=== PATIENT | male | born 1945 | race Caucasian/White ===

== ENCOUNTER 2020-03-19 19:42 | Inpatient (IN) | payer MEDICARE, MEDICAID ==
[~2020-03-19] VITALS: Ht 167.6 cm; Wt 50.3 kg
--- NOTE | 2020-03-19 19:45 | Emergency Room Report ---
History of Present Illness General Source: Patient Present Illness HPI Patient is a 74-year-old male sent in from [facility] after increased fever as well as nonproductive cough. Prior history of COPD. Patient had been noted to have increased respiratory rate.Patient was noted to have some prior history of psychosis. History is limited by poor historian. Allergies: Coded Allergies: No Known Allergies (Unverified , 03/19/20) Patient History Past Medical History: see triage record Reviewed Nursing Documentation: PMH: Agreed; PSxH: Agreed Review of Systems All Other Systems: limited - By poor historian Physical Exam Sp02 EP Interpretation: reviewed, normal General Appearance: normal inspection, alert, Chronically Ill Head: atraumatic ENT: normal ENT inspection, hearing grossly normal, normal voice Neck: normal inspection, full range of motion, supple, no bony tend Respiratory: normal inspection, lungs clear, normal breath sounds, no respiratory distress, no retraction, no wheezing Cardiovascular #1: regular rate, rhythm, no edema Gastrointestinal: normal inspection, normal bowel sounds, non tender, soft, no guarding, no hernia Genitourinary: no CVA tenderness Musculoskeletal: normal inspection, back normal, normal range of motion Neurologic: alert, responsive, speech normal, normal inspection Psychiatric: normal inspection, mood/affect normal Medical Decision Making Diagnostic Impression: Primary Impression: Suspected 2019 novel coronavirus infection Additional Impression: COPD (chronic obstructive pulmonary disease) ER Course Patient presented for increased fever as well as increased difficulty with breathing. Differential diagnosis include was not limited to COPD exacerbation , coronavirus infection, pneumonia, bronchitis among others. Because of complexity of patient's case laboratory tests and imaging studies were ordered. EKG interpreted by me showed normal sinus rhythm with a rate of [address] or T wave changes. Patient was noted to have what appears to be some patchy infiltrates on chest x-ray consistent with possible coronavirus infection. Given patient's facility having some prior cases patient is suspicious for coronavirus infection.Patient was noted to have some agitation was given medications that had previously been prescribed. He was started on IV fluids as well as IV antibiotics.Patient started on supplemental oxygen.Dr. Ramone Larsen was contacted for inpatient management. EKG Diagnostic Results Rate: normal Rhythm: NSR ST Segments: no acute changes Status: unchanged Disposition: ADMITTED INPATIENT Condition: Stable Elmo Grimaldo MD March 19, 2020 19:45
[2020-03-19 19:50] VITALS: BP 95/66
--- NOTE | 2020-03-19 19:50 | NUR ---
ED Nurse Note: Pt brought in by [facility] from [facility] with complaints of fever and cough. per ems, pt o2 was at87% RA. Pt O2 went back to 98 on 2L NC. Pt presents with fever of 104.1 at bedside rectal temp. pt is aaox2, nonambulatory, otherwise vss, nad. Pt placed with mask and on droplet isolation precaution. ERMD at bedside.
[2020-03-19] MEDS ORDERED: HALOPERIDOL1 MG ORAL (20:00)
[2020-03-19] MEDS ORDERED: METFORMIN HCL500 M1 ORAL (20:00)
[2020-03-19] MEDS ORDERED: MELATONIN3 MG ORAL (20:00)
[2020-03-19] MEDS ORDERED: Cefepime HCl 2 GM in NS 110 ML IV ONE (20:00)
[2020-03-19] MEDS ORDERED: ABILIFY2 MG IM (20:00)
[2020-03-19] MEDS ORDERED: QUETIAPINE FUM400 MG ORAL (20:00)
[2020-03-19] MEDS ORDERED: BENZTROPINE MESY1 MG ORAL (20:00)
[2020-03-19] MEDS ORDERED: SENNA8.6 M2 PO (20:00)
[2020-03-19] MEDS ORDERED: GABAPENTIN300 MG ORAL (20:00)
[2020-03-19] MEDS ORDERED: DOCUSATE SODIU100 MG ORAL (20:00)
--- NOTE | 2020-03-19 20:05 | NUR ---
ED Nurse Note: blood and urine collected and sent to lab.
--- NOTE | 2020-03-19 20:10 | NUR ---
ED Nurse Note: pt swabbed for covid
--- NOTE | 2020-03-19 20:10 | NUR ---
ED Nurse Note: xr at bedside.
--- NOTE | 2020-03-19 21:10 | Diagnostic Imaging Report ---
EXAM: XR Chest, 1 View CLINICAL HISTORY: COUGH TECHNIQUE: Frontal view of the chest. COMPARISON: No relevant prior studies available. FINDINGS: Lungs: Patchy right lung opacities suggest multifocal pneumonia. Possible right hilar enlargement versus artifactual prominence due to patient positioning, recommend attention on followup. Pleural space: Unremarkable. No pneumothorax. Heart: Unremarkable. No cardiomegaly. Mediastinum: Unremarkable. Bones/joints: Unremarkable. Other findings: If there is continued concern, consider CT. Recommend followup with radiographs or unenhanced CT in 8-10 weeks to document resolution. IMPRESSION: 1. Patchy right lung opacities suggest multifocal pneumonia. 2. Possible right hilar enlargement versus artifactual prominence due to patient positioning, recommend attention on followup. 3. If there is continued concern, consider CT.
--- NOTE | 2020-03-19 21:29 | NUR ---
ED Nurse Note: gave report to Ara JAMES
[2020-03-19 21:36] VITALS: BP 129/62
[2020-03-19] MEDS ORDERED: QUEtiapine 200mg tab ORAL ONE (21:45)
[2020-03-19 21:49] LABS: CKMB < 0.5 NG/ML (0.0-3.6); CREATINE KINASE 126 U/L (26-308); FERRITIN 484 NG/ML (8-388); PHOSPHORUS 2.8 MG/DL (2.5-4.9)
[2020-03-19 21:50] LABS: BASOPHILS % (AUTO) 1.8 % (0.0-2.0); EOSINOPHILS % (AUTO) 0.4 % (0.0-3.0); HEMATOCRIT 40.8 % (42.0-52.0); LYMPHOCYTES % (AUTO) 16.3 % (20.0-45.0); MEAN CORPUSCULAR VOLUME 89 FL (80-99); MONOCYTES % (AUTO) 12.9 % (1.0-10.0); NEUTROPHILS % (AUTO) 68.6 % (45.0-75.0); PLATELET COUNT 125 K/UL (150-450); RED BLOOD COUNT 4.56 M/UL (4.70-6.10); RED CELL DISTRIBUTION WIDTH 12.6 % (11.6-14.8)
[2020-03-19 21:56] LABS: ANION GAP 9 mmol/L (5-15); BLOOD UREA NITROGEN 16 mg/dL (7-18); CALCIUM 7.4 MG/DL (8.5-10.1); CARBON DIOXIDE 29 MMOL/L (21-32); CHLORIDE 106 MMOL/L (98-107); CREATININE 0.9 MG/DL (0.55-1.30); POTASSIUM 3.9 MMOL/L (3.5-5.1); SODIUM 144 MMOL/L (136-145)
[2020-03-19 22:00] LABS: ALANINE AMINOTRANSFERASE 21 U/L (12-78); ALBUMIN 2.8 G/DL (3.4-5.0); ALBUMIN/GLOBULIN RATIO 0.8 (1.0-2.7); ALKALINE PHOSPHATASE 64 U/L (46-116); ASPARTATE AMINO TRANSFERASE 26 U/L (15-37); BILIRUBIN,TOTAL 0.4 MG/DL (0.2-1.0)
--- NOTE | 2020-03-19 22:15 | NUR ---
TRANSFER TO FLOOR: Patient transferred to [facility] via [facility] in stable condition via transport 19 as ordered, per Dr. Larsen. Report given to Aylin JAMES. Belongings sent with patient.
--- NOTE | 2020-03-19 22:20 | NUR ---
NURSE NOTES: RECEIVED PATIENT FROM ODILON BLACK RN. PATIENT TRANSFERRED TO BED WITHOUT INCIDENT NOTED. ALERT, OX1-2, VERBALLY RESPONSIVE AND ABLE TO MAKE NEEDS KNOWN; PATIENT NOTED TO BE RAMBLING AND REPEATING WORDS. PATIENT ABLE TO UTILIZE SIDERAILS TO REPOSITION SELF IN BED. PATIENT CHANGED INTO YELLOW GOWN, PLACED ON AUDIT TECH. IV SITE ON LAC SALINE-LOCKED, ASYMPTOMATIC, PATENT AND INTACT. NOTED TO HAVE NO DENTURES/HEARING AIDS/ASSISTIVE DEVICES/CELL PHONE IN POSSESSION. NO COMPLAINTS OF PAIN OR DISCOMFORT AT THIS TIME. BREATHING IS EVEN AND UNLABORED ON 2L VIA NC, NO S/SX OF DISTRESS NOTED AT THIS TIME. BELONGINGS LIST WENT OVER WITH PATIENT AND TRANSFERRING RN. BED LOCKED AND IN LOWEST POSITION, BED ALARM ON WITH PADDED SIDERAILS UP X 2. CALL LIGHT WITHIN REACH. WILL CONTINUE TO MONITOR.
--- NOTE | 2020-03-19 22:34 | NUR ---
NURSE NOTES: CALLED DR. SANCHEZ'S ANSWERING SERVICE AT TO OBTAIN ADMISSION ORDERS, S/W FRANCESCA. AWAITING DR. SANCHEZ TO CALL BACK.
--- NOTE | 2020-03-19 22:56 | NUR ---
NURSE NOTES: PER DR. SANCHEZ, CONTACT DR. PRATT FOR ADMISSION ORDERS. LEFT MESSAGE FOR DR. PRATT AT . AWAITING CALL BACK.
[2020-03-20] VITALS: BP 129/62
--- NOTE | 2020-03-20 00:30 | NUR ---
NURSE NOTES: S/W JB AT [facility]. PER JB, PATIENT HAS NO HX OF INFLUENZA AND PNA VACCINES PATIENT ALWAYS REFUSES.
--- NOTE | 2020-03-20 00:45 | NUR ---
NURSE NOTES: DR. PRATT CALLED BACK WITH ADMISSION ORDERS. NOTED AND CARRIED OUT.
--- NOTE | 2020-03-20 01:06 | NUR ---
NURSE NOTES: PATIENT HAS A PUBLIC GUARDIAN: NACHO DILLON @ [phone]
[2020-03-20 04:00] VITALS: BP 129/62
[2020-03-20] MEDS: NovoLOG Insulin Flexpen SUBQ SCH ×4 (06:30→21:00)
--- NOTE | 2020-03-20 06:42 | NUR ---
NURSE NOTES: BS AT [id number]. PATIENT GIVEN TWO ORANGE JUICES. DR. SANCHEZ NOTIFIED. WILL CHECK BS IN 30 MINUTES.
[2020-03-20] MEDS: metFORMIN 500mg tab ORAL SCH ×2 (06:46→12:12)
--- NOTE | 2020-03-20 07:10 | NUR ---
NURSE NOTES:Handoff received from JACOB Viera. Patient received sleeping in bed, no acute signs of distress noted. Bed in the low and locked position with call light within reach, IV site clean dry and intact, saline locked. Patient is on isolation for rule out covid, patient on 2 liters nasal cannula, will continue to monitor patient.
--- NOTE | 2020-03-20 07:40 | NUR ---
HAND-OFF: Report given to JACOB WOODARD. PLAN OF CARE ENDORSED.
[2020-03-20 08:00] VITALS: BP 98/62
--- NOTE | 2020-03-20 08:24 | Consultation ---
Consult Note Consult Note PULMONARY CONSULT DICTATED Cedric Benítez MD March 20, 2020 08:24
[2020-03-20] MEDS: Benztropine 1mg tab ORAL SCH ×2 (08:44→17:27)
[2020-03-20] MEDS: Docusate 100mg cap ORAL SCH (08:44)
[2020-03-20 12:00] VITALS: BP 90/47
--- NOTE | 2020-03-20 12:14 | NUR ---
NURSE NOTES:Crushed meds and placed in apple sauce, patient refused to take medications, became agitated and stated " I took medications this morning, I don't want no more applesauce. failed to convince patient to take medications Gabapentin and Metformin.
--- NOTE | 2020-03-20 13:05 | NUR ---
NURSE NOTES: Called and left a message for Dr Larsen to update him on patient change in condition, patient blood pressure is 90/47
--- NOTE | 2020-03-20 13:08 | NUR ---
NURSE NOTES: patient comfortable and resting in bed, elevated patients legs to help raise BP.
--- NOTE | 2020-03-20 13:59 | Cardiology Progress Note ---
Assessment/Plan Assessment/Plan Cardiology consultation is made at request of Dr. Larsen for management of hypotension. Full report is dictated. Objective Last 24 Hour Vital Signs Date Time Temp Pulse Resp B/P (MAP) Pulse Ox O2 Delivery O2 Flow Rate FiO2 03/20/20 12:00 83 03/20/20 12:00 97.8 80 19 90/47 (61) 92 03/20/20 08:54 Nasal Cannula 2.0 03/20/20 08:00 85 03/20/20 08:00 97.8 94 20 98/62 (74) 91 03/20/20 04:00 97.2 77 18 129/62 (84) 97 03/20/20 04:00 78 03/20/20 00:00 99.8 82 21 129/62 (84) 98 03/20/20 00:00 91 03/19/20 22:35 Nasal Cannula 2.0 03/19/20 22:30 89 03/19/20 22:15 102.8 88 30 129/62 98 Nasal Cannula 2.0 98 03/19/20 21:40 102.8 03/19/20 21:36 102.8 82 30 129/62 98 Nasal Cannula 2.0 03/19/20 21:36 82 30 Nasal Cannula 2.0 98 03/19/20 19:50 104.1 88 30 95/66 98 Nasal Cannula 2.0 03/19/20 19:46 101.1 85 31 92/60 (71) 98 Intake and Output 03/19/20 03/20/20 19:00 07:00 Intake Total 1000 ml Balance 1000 ml IV Total 1000 ml # Voids 2 Laboratory Tests Test 03/19/20 21:00 White Blood Count 5.0 K/UL (4.8-10.8) Red Blood Count 4.56 M/UL (4.70-6.10) L Hemoglobin 13.0 G/DL (14.2-18.0) L Hematocrit 40.8 % (42.0-52.0) L Mean Corpuscular Volume 89 FL (80-99) Mean Corpuscular Hemoglobin 28.5 PG (27.0-31.0) Mean Corpuscular Hemoglobin Concent 31.9 G/DL (32.0-36.0) L Red Cell Distribution Width 12.6 % (11.6-14.8) Platelet Count 125 K/UL (150-450) L Mean Platelet Volume 9.8 FL (6.5-10.1) Neutrophils (%) (Auto) 68.6 % (45.0-75.0) Lymphocytes (%) (Auto) 16.3 % (20.0-45.0) L Monocytes (%) (Auto) 12.9 % (1.0-10.0) H Eosinophils (%) (Auto) 0.4 % (0.0-3.0) Basophils (%) (Auto) 1.8 % (0.0-2.0) D-Dimer 1.00 mg/L FEU (0.00-0.49) H Sodium Level 144 MMOL/L (136-145) Potassium Level 3.9 MMOL/L (3.5-5.1) Chloride Level 106 MMOL/L (98-107) Carbon Dioxide Level 29 MMOL/L (21-32) Anion Gap 9 mmol/L (5-15) Blood Urea Nitrogen 16 mg/dL (7-18) Creatinine 0.9 MG/DL (0.55-1.30) Estimat Glomerular Filtration Rate > 60 mL/min (>60) Glucose Level 98 MG/DL (74-106) Lactic Acid Level 0.80 mmol/L (0.4-2.0) Calcium Level 7.4 MG/DL (8.5-10.1) L Phosphorus Level 2.8 MG/DL (2.5-4.9) Magnesium Level 2.0 MG/DL (1.8-2.4) Ferritin 484 NG/ML (8-388) H Total Bilirubin 0.4 MG/DL (0.2-1.0) Aspartate Amino Transf (AST/SGOT) 26 U/L (15-37) Alanine Aminotransferase (ALT/SGPT) 21 U/L (12-78) Alkaline Phosphatase 64 U/L (46-116) Total Creatine Kinase 126 U/L (26-308) Creatine Kinase MB < 0.5 NG/ML (0.0-3.6) Creatine Kinase MB Relative Index 0.3 Troponin I 0.000 ng/mL (0.000-0.056) C-Reactive Protein, Quantitative 6.9 mg/dL (0.00-0.90) H Pro-B-Type Natriuretic Peptide 162 pg/mL (0-125) H Total Protein 6.5 G/DL (6.4-8.2) Albumin 2.8 G/DL (3.4-5.0) L Globulin 3.7 g/dL Albumin/Globulin Ratio 0.8 (1.0-2.7) L Microbiology Date/Time Source Procedure Growth Status 03/19/20 20:15 Rectum Received Ja Dinh MD March 20, 2020 13:59
[2020-03-20] MEDS ORDERED: NS 250 ML IVPB ONE (14:00)
[2020-03-20] MEDS: Heparin 5000 units/ml inj SUBQ SCH ×2 (14:00→22:00)
[2020-03-20] MEDS: Cefepime HCl 1 GM in D5W 55 ML IVPB SCH (14:13)
--- NOTE | 2020-03-20 14:36 | NUR ---
NURSE NOTES: Received orders from DR Dinh regarding patient blood pressure. MD ordered 250ml Bolus of NS and Heparin for the DVT prophylaxis. Previous call from Dr Benítez for orders however went with the orders from Dr Dinh for bolus.
[2020-03-20 15:25] LABS: APPEARANCE,URINE CLEAR; BILIRUBIN, URINE NEGATIVE (NEGATIVE); COLOR,URINE BROWN; GLUCOSE, URINE (UA) NEGATIVE (NEGATIVE); KETONES,URINE NEGATIVE (NEGATIVE); LEUKOCYTE ESTERASE ,URINE 1+ (NEGATIVE); NITRITE,URINE NEGATIVE (NEGATIVE); PH,URINE 6 (4.5-8.0); PROTEIN,URINE 2+ (NEGATIVE); UROBILINOGEN,URINE 4 MG/DL (0.0-1.0)
[2020-03-20 16:00] VITALS: BP 107/66
--- NOTE | 2020-03-20 16:02 | NUR ---
PT Note PT hiram completed,treatment initiated. Patient was very cooperative and able to follow instructions. He has muscle weakness, decreased balance in sitting and standing, requiring assist in mobility and gait. Patient needs PT to increase his muscle strength and postural stability to improve his mobility and gait to PLF. Addendum: 03/20/20 at 1603 by PACHECO MOSS PT Amended: Links added.
[2020-03-20] MEDS: Vancomycin 500mg/D5W 110ml IVPB SCH ×2 (16:43)
[2020-03-20] MEDS ORDERED: LORazepam 1mg tab ORAL PRN (16:45)
--- NOTE | 2020-03-20 16:45 | NUR ---
NURSE NOTES:Patient anxious and shouting for the door to remain open. Informed patient that the door has to be closed because he is a PUI and we need to make sure he does not have Covid. Patient continues to shout "fuck you" and continues to repeat "open the fucking door"
--- NOTE | 2020-03-20 19:48 | NUR ---
NURSE NOTES: RECEIVED REPORT FROM JACOB WOODARD. PATIENT AWAKE IN BED, AAXO2, VERBALLY RESPONSIVE AND ABLE TO MAKE NEEDS KNOWN. BREATHING IS EVEN AND UNLABORED ON ROOM AIR, NO S/SX OF DISTRESS. PATIENT REFUSES TO KEEP NASAL CANNULA IN AT 2L PRESCRIBED- INFORMED PATIENT THE PURPOSE OF SUPPLEMENTAL OXYGEN, BUT PATIENT STILL INSISTED ON KEEPING NC OFF. NO COMPLAINTS OF PAIN OR DISCOMFORT AT THIS TIME. IV SITE ON LAC SALINE-LOCKED, ASYMPTOMATIC, PATENT, AND INTACT. BED LOCKED AND IN LOWEST POSITION, BED ALARM ON, WITH SIDERAILS UP X 2. CALL LIGHT WITHIN REACH. WILL CONTINUE TO MONITOR. Addendum: 03/21/20 at 0235 by Aylin Tovar RN AOX2 Addendum: 03/21/20 at 0236 by Aylin Tovar RN PADDED SIDERAILS UP X 2
--- NOTE | 2020-03-20 19:53 | NUR ---
HAND-OFF: Report given to JACOB Viera.
[2020-03-20 20:00] VITALS: BP 133/83
--- NOTE | 2020-03-20 20:00 | History and Physical Report ---
DATE OF ADMISSION: 03/19/2020 DATE AND TIME SEEN: On 03/20/2020 at 9 a.m. CONSULTANTS: 1. Cedric Benítez MD. 2. Catracho Robles MD. CHIEF COMPLAINT: Fever, cough, shortness of breath, and pneumonia. BRIEF HISTORY: This is a 74-year-old male from [facility], who presented with the above-mentioned diagnoses. He came to [facility], diagnosed with the above, suspect COVID pneumonia, and admitted to telemetry for further care. Currently, O2 NC, calm, sleeping in bed, slightly confused, no complaint. REVIEW OF SYSTEMS: Unable to obtain secondary to the patient's condition. PAST MEDICAL HISTORY: COPD, diabetes, schizophrenia, seizure, polyneuropathy, hypothyroid, and weakness. PAST SURGICAL HISTORY: Unknown. ALLERGIES: Denies. MEDICATIONS: Include Haldol, quetiapine, gabapentin, insulin, levothyroxine, metformin, metronidazole, and cefepime. SOCIAL HISTORY: No smoking. No alcohol. No intravenous drug abuse. FAMILY HISTORY: Noncontributory. PHYSICAL EXAMINATION: GENERAL: Calm, lethargic, in bed, oriented x1, in no acute distress. VITAL SIGNS: Temperature is 97, pulse 94, respirations 20, and blood pressure 90/62. HEENT: Normocephalic and atraumatic. NECK: Trachea midline. CARDIOVASCULAR: No peripheral edema. PULMONARY: O2 NC, slightly short of breath. ABDOMEN: No apparent wounds. EXTREMITIES: No cyanosis or clubbing. LABORATORY AND DIAGNOSTIC DATA: Labs at this time show hemoglobin and hematocrit 13/40, platelets 125,000, otherwise normal. BNP is 162, otherwise BMP is normal. ASSESSMENT: Fever, suspect COVID, pneumonia, COPD, diabetes, schizophrenia, seizure, polyneuropathy, hypothyroid, and weakness. PLAN: O2 and pulmonary treatment. Antibiotics per Infectious Disease. Blood pressure, blood sugar, and pain control. Dietary followup. ID followup. We will add Psychiatry. We will continue to follow this patient. Ramone Larsen D.O. DR: Yogesh JOB#: [id number] CC:
[2020-03-20] MEDS: QUEtiapine 200mg tab ORAL SCH (20:51)
[2020-03-20] MEDS: Sennosides 8.6mg tab ORAL SCH (20:51)
[2020-03-20] MEDS ORDERED: Haloperidol 1mg tab ORAL SCH (21:00)
--- NOTE | 2020-03-20 21:30 | NUR ---
NURSE NOTES: PATIENT REMOVED IV LINE, PATIENT YELLING HE "DOES NOT WANT IT!" EDUCATED PATIENT THAT IV SITE IS NECESSARY FOR MEDICATION ADMINISTRATION, BUT PATIENT UNABLE TO COMPREHEND. ATTEMPTED TO RE-INSERT IV LINE, BUT PATIENT STRONGLY REFUSED, REFUSING TO LEAVE ARMS OUT. WILL TRY AGAIN AT A LATER TIME WHEN PATIENT HAS CALMED DOWN.
[2020-03-21] VITALS: BP 130/83
--- NOTE | 2020-03-21 00:29 | Consultation ---
DATE OF CONSULTATION: 03/20/2020 CARDIOLOGY CONSULTATION REFERRING PHYSICIAN: Ramone Larsen DO REASON FOR CONSULTATION: Management of hypotension and tachycardia. HISTORY OF PRESENT ILLNESS: The patient is a very unfortunate 74-year-old gentleman, a resident of a care home facility at [facility], who was brought in for evaluation and management of fever, nonproductive cough, and increased shortness of breath. The patient's past medical history is significant for chronic obstructive pulmonary disease. At the time of arrival to this hospital, initial blood pressure was 92/60 mmHg, heart rate was 85 and respiratory rate was 31. The patient was febrile with temperature of 100.1 degrees Fahrenheit. Initial imaging and blood test in the emergency department showed patchy right lung opacities suggestive of multifocal pneumonia, highly suspicious for COVID-19 pneumonia. Laboratory finding was significant for lymphopenia and elevated CRP at 6.9 and hypernatremia with a sodium of 144 and hypocalcemia with calcium level of 7.4. Troponin I level was 0 and gua-jhxtw-ivuemtxybqz peptide was 162. The patient was admitted to telemetry for further evaluation and management. Cardiology consultation was made at the request of Dr. Larsen for management of hypotension. PAST MEDICAL HISTORY: COPD and psychiatric disease. PAST SURGICAL HISTORY: None. ALLERGIES: No known drug allergies. MEDICATIONS: List of medications: 1. Abilify 400 mg IM monthly. 2. Benztropine mesylate 0.5 mg twice daily. 3. Colace 100 mg p.o. daily. 4. Gabapentin 300 mg 3 times a day. 5. Haldol 3 mg at bedtime. 6. Melatonin 3 mg at bedtime. 7. Metformin 500 mg twice daily. 8. Seroquel 400 mg at bedtime. 9. Senna 8.6 mg p.o. nightly. SOCIAL HISTORY: Denies any tobacco, alcohol, or illicit drug use. He is a resident of [facility] under the care of Dr. Ramone Larsen. FAMILY HISTORY: No premature coronary artery disease in first-degree relatives. REVIEW OF SYSTEMS: HEENT: Denies any headache, diplopia, or blurred vision. CONSTITUTIONAL: Complains of fever, but no night sweats or weight loss. CARDIOVASCULAR: Denies any chest pain. Positive for shortness of breath. No PND, orthopnea, leg swelling, or syncope. PULMONARY: Positive for a nonproductive cough and shortness of breath. No hemoptysis. GASTROINTESTINAL: Denies any nausea, vomiting, diarrhea, constipation, abdominal pain, or GI bleed. GENITOURINARY: Denies any hematuria, dysuria, or incontinence. NEUROLOGY: Denies any motor dysfunction, sensory deficit, or altered speech. PSYCHIATRIC: Positive for schizophrenia. PHYSICAL EXAMINATION: HEENT: Normocephalic and atraumatic. PERRLA, EOMI. NECK: No JVD, no carotid bruit. CARDIOVASCULAR: Normal S1S2, no murmurs, gallops or rubs, regular, rate and rhythm. PULMONARY: Diminished BS, crackles right lung. ABDOMEN: Non-tender, non-distended, + BS EXTREMITIES: No cyanosis, edema or clubbing. LABORATORY FINDINGS: Chemistry, sodium 144, potassium 3.9, chloride 106, bicarbonate 29, BUN 16, creatinine 0.9, glucose is 98, calcium is 7.4. D-dimer is 1.0. WBC 5.0, hemoglobin 13.0, hematocrit of 40.8, and platelet count 128. ASSESSMENT AND PLAN: The patient is a very unfortunate 74-year-old gentleman seen in Cardiology consultation. 1. Hypotension, most likely secondary to COVID-19 pneumonia. Given the very classic presentation of this virus, I would like to give 250 mL normal saline IV and recheck the blood pressure. We may have to give additional boluses based on the patient's blood pressure. 2. Sinus tachycardia. Patient's heart rate rebel to over 105, most likely due to fever and infection. No AV gabi agent is required at this time. We will continue monitoring the patient. 3. Fever. Hydration to make up for increased insensible loss. 4. History of COPD. I would like to thank Dr. Larsen for allowing me to participate in the care of this patient. Ja Dinh M.D. DR: SUHAS JOB#: [id number] CC: JOLENE
--- NOTE | 2020-03-21 00:54 | NUR ---
NURSE NOTES: PATIENT HAD A TEMPERATURE OF 101.6 AT 0000 AFTER COMPUTER GRAPHICS ILLUSTRATOR DID VITALS. RE-CHECKED PATIENT'S TEMPERATURE, IT WAS 99.6. BLANKETS REMOVED. WILL RE-CHECK TEMPERATURE IN 30 MINUTES.
--- NOTE | 2020-03-21 00:58 | NUR ---
NURSE NOTES: ATTEMPTED TO COLLECT SPUTUM CULTURE FROM PATIENT, BUT PATIENT BEING UNCOOPERATIVE. PATIENT PROCEEDED TO YELL PROFANE WORDS AT NURSE.
--- NOTE | 2020-03-21 01:45 | Consultation ---
DATE OF CONSULTATION: 03/20/2020 PULMONARY CONSULTATION CONSULTING PHYSICIAN: Cedric Benítez M.D. HISTORY OF PRESENT ILLNESS: This is a 74-year-old male who was sent from a nursing facility with fever and dry cough. He has a history of COPD. The patient was found to be tachypneic in the senior care and transferred to the hospital. In the emergency, the patient was seen and evaluated. He has been found to have hypoxemia as well as tachypnea. Imaging studies have shown patchy right lung opacity suspicious for pneumonia. He is admitted to the hospital. PAST MEDICAL HISTORY: Notable for chronic obstructive pulmonary disease, senior care resident, psych disorder, hypothyroidism, and diabetes mellitus. HOME MEDICATIONS: Include Seroquel, metformin, Ativan, Synthroid, Haldol, Neurontin, and Benadryl. REVIEW OF SYSTEMS: Unreliable. ALLERGIES: None reported. PHYSICAL EXAMINATION: GENERAL: Reveals a 74-year-old male. VITAL SIGNS: Blood pressure is 107/60, heart rate 84, respirations ____, O2 saturation 98% on 2 liters of oxygen. HEENT: Unremarkable. LUNGS: Crackles at right base. ABDOMEN: Soft. EXTREMITIES: There is no edema. NEUROLOGIC: Nonfocal. LABORATORY DATA: Laboratory testing shows normal CBC and BMP. Calcium 7.8. Lactic acid 0.8. Ferritin 484. ProBNP 162. Troponin negative. CRP 6.9. Chest x-ray as discussed above. IMPRESSION: 1. Right lung pneumonia. 2. alf resident. 3. Psych disorder. 4. Hypothyroidism. DISCUSSION: Admit to the hospital. The patient has been started on broad-spectrum antibiotics. Continue medications. Order oxygen and pulmonary hygiene. Awake COVID-19. We will follow carefully. Cedric Benítez M.D. DR: MICHAEL JOB#: [id number] CC:
--- NOTE | 2020-03-21 02:00 | NUR ---
NURSE NOTES: PATIENT NOTED WITH A TEMPERATURE OF 100.6. TYLENOL GIVEN PRESCRIBED. WILL RE-CHECK TEMPERATURE IN 30 MINUTES TO EVALUATE EFFECTIVENESS.
--- NOTE | 2020-03-21 02:45 | Progress Note ---
DATE: 03/20/2020 NOTE: INCOMPLETE DICTATION SUBJECTIVE: Rolf Blanco is a male patient who is admitted to [facility]. He is admitted to the hospital secondary to acute febrile illness. He has infection as well, so he [facility] and Cristina Brandt M.D. DR: Aston JOB#: [id number] CC:
[2020-03-21] MEDS: Vancomycin 500mg/D5W 110ml IVPB SCH ×4 (03:42→17:26)
[2020-03-21 04:00] VITALS: BP 121/71
[2020-03-21] MEDS: Heparin 5000 units/ml inj SUBQ SCH ×3 (05:50→22:00)
[2020-03-21] MEDS: metFORMIN 500mg tab ORAL SCH ×2 (05:51→11:30)
[2020-03-21] MEDS: NovoLOG Insulin Flexpen SUBQ SCH ×4 (06:30→21:00)
--- NOTE | 2020-03-21 07:06 | NUR ---
HAND-OFF: Report given to JACOB WOODARD. PLAN OF CARE ENDORSED.
--- NOTE | 2020-03-21 07:10 | NUR ---
NURSE NOTES:Handoff received from JACOB Viera. Patient received eating breakfast in bed. no acute signs of distress noted. patient is on nasal cannula at 2 liters, bed in the low and locked position with call light within reach. will continue to monitor patient.
--- NOTE | 2020-03-21 07:54 | NUR ---
NURSE NOTES:Contacted Dr Dinh as patient BP is low at 68/44 awaiting MD call back.
[2020-03-21 08:00] VITALS: BP 78/53
[2020-03-21 09:37] LABS: HEMATOCRIT 30.5 % (42.0-52.0); HEMOGLOBIN 10.8 G/DL (14.2-18.0); MEAN CORPUSCULAR VOLUME 83 FL (80-99); PLATELET COUNT 105 K/UL (150-450); RED BLOOD COUNT 3.67 M/UL (4.70-6.10); RED CELL DISTRIBUTION WIDTH 10.9 % (11.6-14.8)
[2020-03-21 09:41] LABS: ANION GAP 8 mmol/L (5-15); BLOOD UREA NITROGEN 12 mg/dL (7-18); CALCIUM 7.3 MG/DL (8.5-10.1); CARBON DIOXIDE 26 MMOL/L (21-32); CHLORIDE 106 MMOL/L (98-107); CREATININE 0.8 MG/DL (0.55-1.30); POTASSIUM 3.4 MMOL/L (3.5-5.1); SODIUM 140 MMOL/L (136-145)
--- NOTE | 2020-03-21 09:44 | General Progress Note ---
Assessment/Plan Problem List: (1) UTI (urinary tract infection) ICD Codes: N39.0 - Urinary tract infection, site not specified SNOMED: 84137748 (2) Diabetes ICD Codes: E11.9 - Type 2 diabetes mellitus without complications SNOMED: 87488332 (3) Seizure ICD Codes: R56.9 - Unspecified convulsions SNOMED: 04606511 (4) Polyneuropathy in diabetes ICD Codes: E11.42 - Type 2 diabetes mellitus with diabetic polyneuropathy SNOMED: 14476197, 62439518 (5) Hypothyroid ICD Codes: E03.9 - Hypothyroidism, unspecified SNOMED: 22576625 (6) Weak ICD Codes: R53.1 - Weakness SNOMED: 57451371 (7) COPD (chronic obstructive pulmonary disease) ICD Codes: J44.9 - Chronic obstructive pulmonary disease, unspecified SNOMED: 08964784 (8) Acute febrile illness ICD Codes: R50.9 - Fever, unspecified SNOMED: 959921916 (9) Suspected 2019 novel coronavirus infection ICD Codes: Z20.828 - Contact with and (suspected) exposure to other viral communicable diseases SNOMED: 901877443 Status: unchanged Assessment/Plan: o2 pulm tx abx pt diet cbc bmp am Subjective Constitutional: Reports: weakness Allergies: Coded Allergies: No Known Allergies (Unverified , 03/19/20) All Systems: reviewed and negative except above Subjective o2nc calm Objective Last 24 Hour Vital Signs Date Time Temp Pulse Resp B/P (MAP) Pulse Ox O2 Delivery O2 Flow Rate FiO2 03/21/20 08:00 97.5 74 18 78/53 (61) 96 03/21/20 04:00 88 03/21/20 04:00 98.2 77 20 121/71 (88) 96 03/21/20 02:32 99.0 03/21/20 00:00 99.6 64 19 130/83 (99) 95 03/21/20 00:00 104 03/20/20 21:00 Nasal Cannula 2.0 03/20/20 20:00 101 03/20/20 20:00 98.2 112 19 133/83 (100) 93 03/20/20 16:00 83 03/20/20 16:00 97.5 86 18 107/66 (80) 93 03/20/20 12:00 83 03/20/20 12:00 97.8 80 19 90/47 (61) 92 Intake and Output 03/20/20 03/21/20 19:00 07:00 Intake Total 480 ml 120 ml Output Total 300 ml Balance 180 ml 120 ml Intake Oral 480 ml 120 ml Output Urine Total 300 ml # Voids 1 100 Laboratory Tests 03/20/20 14:40: Urine Color Brown, Urine Appearance Clear, Urine pH 6, Urine Specific [place] 1.020, Urine Protein 2+H, Urine Glucose (UA) Negative, Urine Ketones Negative, Urine Blood Negative, Urine Nitrite Negative, Urine Bilirubin Negative, Urine Urobilinogen 4H, Urine Leukocyte Esterase 1+H, Urine RBC 0-2H, Urine WBC 2-4, Urine Squamous Epithelial Cells None, Urine Amorphous Sediment FewH, Urine Bacteria Few 03/21/20 07:45: White Blood Count [Pending], Red Blood Count [Pending], Hemoglobin [Pending], Hematocrit [Pending], Mean Corpuscular Volume [Pending], Mean Corpuscular Hemoglobin [Pending], Mean Corpuscular Hemoglobin Concent [Pending], Red Cell Distribution Width [Pending], Platelet Count [Pending], Mean Platelet Volume [ Pending], Neutrophils (%) (Auto) [Pending], Lymphocytes (%) (Auto) [Pending], Monocytes (%) (Auto) [Pending], Eosinophils (%) (Auto) [Pending], Basophils (%) (Auto) [Pending], Sodium Level [Pending], Potassium Level [Pending], Chloride Level [Pending], Carbon Dioxide Level [Pending], Blood Urea Nitrogen [Pending], Creatinine [Pending], Estimat Glomerular Filtration Rate [Pending], Glucose Level [Pending], Calcium Level [Pending] Height (Feet): 5 Height (Inches): 6.00 Weight (Pounds): 111 General Appearance: lethargic EENT: normal ENT inspection Neck: normal alignment Cardiovascular: normal rate, regular rhythm Respiratory/Chest: no respiratory distress, no accessory muscle use Extremities: normal inspection Skin: normal pigmentation ChavaRamone RemiMariah WHEELER March 21, 2020 09:44
[2020-03-21] MEDS: Benztropine 1mg tab ORAL SCH ×2 (10:01→17:25)
[2020-03-21] MEDS: Docusate 100mg cap ORAL SCH (10:01)
--- NOTE | 2020-03-21 10:54 | NUR ---
NURSE NOTES: athletic gear custodian took orders from Dr Dinh for 1000ML bolus of NS. Bolus given to patient but blood pressure still low at 76/52 charge account clerk left another message for Dr Dinh to let him know patient BP is still low.
--- NOTE | 2020-03-21 11:23 | NUR ---
PT Note Patient is having hypotension. Will hold PT treatment today; check again in AM.
[2020-03-21 11:45] VITALS: BP 106/53
[2020-03-21] MEDS: D5NS 1,000 ML IV SCH ×2 (12:24→22:22)
--- NOTE | 2020-03-21 13:12 | Consultation ---
History of Present Illness General Date patient seen: March 21, 2020 Chief Complaint: Fever Present Illness HPI 74 y/o M with hx of COPD, Dm2, schizophrenia, seizure disorder, polyneuropathy, hypothyroidism, [place] resident (Jourdan Bell) presented to ED on 03/19 with fever, non productive cough, SOB. ON ED, tachypenic, hypoxemic and CXR with infiltrates. Allergies: Coded Allergies: No Known Allergies (Unverified , 03/19/20) Medication History Scheduled Aripiprazole* (Abilify*), 400 MG IM monthly, (Reported) Benztropine Mesylate* (Benztropine Mesylate*), 0.5 MG ORAL BID, (Reported) Docusate Sodium* (Docusate Sodium*), 100 MG ORAL DAILY, (Reported) Gabapentin* (Gabapentin*), 300 MG ORAL THREE TIMES A DAY, (Reported) Haloperidol* (Haldol*), 3 MG ORAL QHS, (Reported) Melatonin (Melatonin), 3 MG ORAL BEDTIME, (Reported) Metformin Hcl* (Metformin Hcl*), 500 MG ORAL TWICE A DAY, (Reported) Quetiapine Fumarate* (Quetiapine Fumarate*), 400 MG ORAL nightly, (Reported) Sennosides (Senna), 8.6 MG PO nightly, (Reported) Patient History Healthcare decision maker N Resuscitation status Advanced Directive on File Patient History Narrative Pmhx: as above Shx: No smoking. No alcohol. No intravenous drug abuse. Fhmx: non contributory Review of Systems All Other Systems: negative except mentioned in HPI Physical Exam Physical Exam Narrative GENERAL: Calm, lethargic, in bed, oriented x1, in no acute distress. HEENT: Normocephalic and atraumatic. NECK: Trachea midline. CARDIOVASCULAR: No peripheral edema. PULMONARY: O2 NC, slightly short of breath. ABDOMEN: No apparent wounds. EXTREMITIES: No cyanosis or clubbing. Last 24 Hour Vital Signs Date Time Temp Pulse Resp B/P (MAP) Pulse Ox O2 Delivery O2 Flow Rate FiO2 03/21/20 12:00 77 03/21/20 11:45 97.5 74 18 106/53 (70) 96 03/21/20 09:00 Nasal Cannula 2.0 03/21/20 08:00 97.5 74 18 78/53 (61) 96 03/21/20 08:00 77 03/21/20 04:00 88 03/21/20 04:00 98.2 77 20 121/71 (88) 96 03/21/20 02:32 99.0 03/21/20 00:00 99.6 64 19 130/83 (99) 95 03/21/20 00:00 104 03/20/20 21:00 Nasal Cannula 2.0 03/20/20 20:00 101 03/20/20 20:00 98.2 112 19 133/83 (100) 93 03/20/20 16:00 83 03/20/20 16:00 97.5 86 18 107/66 (80) 93 Intake and Output 03/20/20 03/21/20 19:00 07:00 Intake Total 480 ml 120 ml Output Total 300 ml Balance 180 ml 120 ml Intake Oral 480 ml 120 ml Output Urine Total 300 ml # Voids 1 100 Laboratory Tests Test 03/20/20 14:40 03/21/20 07:45 Urine Color Brown Urine Appearance Clear Urine pH 6 (4.5-8.0) Urine Specific [place] 1.020 (1.005-1.035) Urine Protein 2+ (NEGATIVE) H Urine Glucose (UA) Negative (NEGATIVE) Urine Ketones Negative (NEGATIVE) Urine Blood Negative (NEGATIVE) Urine Nitrite Negative (NEGATIVE) Urine Bilirubin Negative (NEGATIVE) Urine Urobilinogen 4 MG/DL (0.0-1.0) H Urine Leukocyte Esterase 1+ (NEGATIVE) H Urine RBC 0-2 /HPF (0 - 0) H Urine WBC 2-4 /HPF (0 - 0) Urine Squamous Epithelial Cells None /LPF (NONE/OCC) Urine Amorphous Sediment Few /LPF (NONE) H Urine Bacteria Few /HPF (NONE) White Blood Count 3.0 K/UL (4.8-10.8) L Red Blood Count 3.67 M/UL (4.70-6.10) L Hemoglobin 10.8 G/DL (14.2-18.0) L Hematocrit 30.5 % (42.0-52.0) L Mean Corpuscular Volume 83 FL (80-99) Mean Corpuscular Hemoglobin 29.4 PG (27.0-31.0) Mean Corpuscular Hemoglobin Concent 35.3 G/DL (32.0-36.0) Red Cell Distribution Width 10.9 % (11.6-14.8) L Platelet Count 105 K/UL (150-450) L Mean Platelet Volume 8.7 FL (6.5-10.1) Neutrophils (%) (Auto) % (45.0-75.0) Lymphocytes (%) (Auto) % (20.0-45.0) Monocytes (%) (Auto) % (1.0-10.0) Eosinophils (%) (Auto) % (0.0-3.0) Basophils (%) (Auto) % (0.0-2.0) Neutrophils % (Manual) Pending Lymphocytes % (Manual) Pending Platelet Estimate Pending Platelet Morphology Pending Sodium Level 140 MMOL/L (136-145) Potassium Level 3.4 MMOL/L (3.5-5.1) L Chloride Level 106 MMOL/L (98-107) Carbon Dioxide Level 26 MMOL/L (21-32) Anion Gap 8 mmol/L (5-15) Blood Urea Nitrogen 12 mg/dL (7-18) Creatinine 0.8 MG/DL (0.55-1.30) Estimat Glomerular Filtration Rate > 60 mL/min (>60) Glucose Level 90 MG/DL (74-106) Calcium Level 7.3 MG/DL (8.5-10.1) L Pro-B-Type Natriuretic Peptide Pending Height (Feet): 5 Height (Inches): 6.00 Weight (Pounds): 111 Medications Current Medications Medications (Trade) Dose Ordered Sig/Deric Route PRN Reason Start Time Stop Time Status Last Admin Dose Admin Acetaminophen (Tylenol) 650 mg Q4H PRN ORAL Temp >100.5 03/20/20 02:45 04/19/20 02:44 03/21/20 02:02 Benztropine Mesylate (Cogentin) 0.5 mg BID ORAL 03/20/20 09:00 04/19/20 08:59 03/21/20 10:01 Cefepime HCl 1 gm/ Dextrose 55 ml @ 110 mls/hr Q24H IVPB 03/20/20 15:00 03/27/20 14:59 03/20/20 14:13 Dextrose (Dextrose 50%) 25 ml Q30M PRN IV Hypoglycemia 03/20/20 01:00 06/18/20 00:59 Dextrose (Dextrose 50%) 50 ml Q30M PRN IV Hypoglycemia 03/20/20 01:00 06/18/20 00:59 Dextrose/Sodium Chloride 1,000 ml @ 75 mls/hr [id number] IV 03/21/20 12:15 04/20/20 12:14 03/21/20 12:24 Diphenhydramine HCl (Benadryl) 50 mg BID ORAL 03/20/20 18:00 04/19/20 17:59 03/20/20 17:27 Docusate Sodium (Colace) 100 mg DAILY ORAL 03/20/20 09:00 04/19/20 08:59 03/21/20 10:01 Gabapentin (Neurontin) 300 mg THREE TIMES A DAY ORAL 03/20/20 09:00 04/19/20 08:59 03/21/20 10:01 Haloperidol (Haldol) 5 mg BID ORAL 03/20/20 18:00 05/04/20 17:59 03/21/20 10:01 Heparin Sodium (Porcine) (Heparin 5000 units/ml) 5,000 units EVERY 8 HOURS SUBQ 03/20/20 14:00 05/04/20 13:59 Insulin Aspart (NovoLOG) BEFORE MEALS AND HS SUBQ 03/20/20 06:30 06/18/20 06:29 Levothyroxine Sodium (Synthroid) 50 mcg DAILY@0630 ORAL 03/20/20 06:30 04/19/20 06:29 03/21/20 05:51 Lorazepam (Ativan) 1 mg Q6H PRN ORAL For Anxiety 03/20/20 16:45 03/27/20 16:44 03/21/20 02:01 Metformin HCl (Glucophage) 500 mg BIDBL ORAL 03/20/20 06:30 04/19/20 06:29 03/21/20 05:51 Quetiapine Fumarate (SEROqueL) 200 mg BID ORAL 03/20/20 18:00 05/04/20 08:59 03/21/20 10:01 Quetiapine Fumarate (SEROqueL) 400 mg QHS ORAL 03/20/20 21:00 05/04/20 20:59 03/20/20 20:51 Sennosides (Senokot) 17.2 mg QHS ORAL 03/20/20 21:00 04/19/20 20:59 03/20/20 20:51 Vancomycin HCl (Vanco rx to dose) 1 ea DAILY PRN MISC Per rx protocol 03/20/20 13:00 04/19/20 12:59 Vancomycin HCl 500 mg/Dextrose 110 ml @ 110 mls/hr Q12HR@0400,1600 IVPB 03/20/20 16:00 03/25/20 15:59 03/21/20 03:42 Assessment/Plan Assessment/Plan: Abx: IV Vancomycin 03/20- Cefepime 03/19- Flagyl x1 03/19 Assessment: Multifocal PNA- likely COVID19 (resident of [place] with large outbreak)- on 2l NC -CXR: Patchy right lung opacities suggest multifocal pneumonia. Possible right hilar enlargement versus artifactual prominence due to patient positioning , recommend attention on followup. If there is continued concern, consider CT. Fever; improving Pancytopenia/Lymphocytopenia -u/a neg Hypokalemia COPD Dm2 schizophrenia seizure disorder polyneuropathy hypothyroidism [place] resident (Jourdan Bell) Plan: -Continue empiric IV Vancomycin #2 and Cefepime #3 for now -f/u cx -Monitor CBC/CMP, temperatures -COVID19 testing and isolation -aspiration precautions Thank you for consulting [facility]. Will continue to follow along with you. Discussed with Sandra Levine M.D. March 21, 2020 13:12
[2020-03-21] MEDS: Cefepime HCl 1 GM in D5W 55 ML IVPB SCH (15:40)
[2020-03-21 16:00] VITALS: BP 93/60
--- NOTE | 2020-03-21 16:45 | Progress Note ---
DATE: 03/21/2020 SUBJECTIVE: This is a 74-year-old male patient. He has acute febrile illness, rule out COVID-19. He is very confused and disorganized. He has altered mental status and confusion and overall decline in cognition below his baseline. This patient has a overall diagnoses of COPD, diabetes, acute febrile illness, urinary tract infection. MENTAL STATUS EXAMINATION: This is a 74-year-old male. Appearance is disheveled. Attitude, irritable and agitated. Affect, guarded and restricted. Intellect poor. Mood, depressed and anxious. Motor activity, psychomotor agitation. Insight and judgment is poor. He is very agitated, irritable, and lot of psychomotor agitation with staff. DIAGNOSIS: Paranoid schizophrenia with acute exacerbation. PLAN: Treat him with Seroquel at a dose of 200 mg twice a day and 400 mg at bedtime, Ativan 1 mg every 6 hours p.r.n. anxiety and agitation, Haldol 5 mg twice a day. A 20-minutes of cognitive behavioral therapy to help him identify his automatic negative thoughts and help him convert his negative thoughts to more positive thoughts to reduce depression, anxiety, and mood lability. Chart reviewed and discussed with staff. Cristina Brandt M.D. DR: Carlos JOB#: [id number] CC:
--- NOTE | 2020-03-21 17:02 | Pulmonology Progress Note ---
Assessment/Plan Assessment/Plan IMPRESSION: 1. Right lung pneumonia. 2. alf resident. 3. Psych disorder. 4. Hypothyroidism. DISCUSSION: Continue broad-spectrum antibiotics. Continue medications. Continue oxygen and pulmonary hygiene. Currently saturating well on 2L/min O2 Await COVID-19. I will follow carefully. Cedric Benítez M.D. Subjective Interval Events: None new Constitutional: Reports: no symptoms HEENT: Repors: no symptoms Respiratory: Reports: no symptoms Cardiovascular: Reports: no symptoms Allergies: Coded Allergies: No Known Allergies (Unverified , 03/19/20) All Systems: reviewed and negative except above Objective Last 24 Hour Vital Signs Date Time Temp Pulse Resp B/P (MAP) Pulse Ox O2 Delivery O2 Flow Rate FiO2 03/21/20 16:00 97.8 71 22 93/60 (71) 94 03/21/20 16:00 77 03/21/20 12:00 77 03/21/20 11:45 97.5 74 18 106/53 (70) 96 03/21/20 09:00 Nasal Cannula 2.0 03/21/20 08:00 97.5 74 18 78/53 (61) 96 03/21/20 08:00 77 03/21/20 04:00 88 03/21/20 04:00 98.2 77 20 121/71 (88) 96 03/21/20 02:32 99.0 03/21/20 00:00 99.6 64 19 130/83 (99) 95 03/21/20 00:00 104 03/20/20 21:00 Nasal Cannula 2.0 03/20/20 20:00 101 03/20/20 20:00 98.2 112 19 133/83 (100) 93 Intake and Output 03/20/20 03/21/20 19:00 07:00 Intake Total 480 ml 120 ml Output Total 300 ml Balance 180 ml 120 ml Intake Oral 480 ml 120 ml Output Urine Total 300 ml # Voids 1 100 General Appearance: no acute distress HEENT: normocephalic Respiratory/Chest: chest wall non-tender Cardiovascular: normal peripheral pulses Abdomen: normal bowel sounds Microbiology Date/Time Source Procedure Growth Status 03/19/20 20:15 Rectum Received Laboratory Tests 03/21/20 07:45: White Blood Count 3.0L, Red Blood Count 3.67L, Hemoglobin 10.8L, Hematocrit 30.5L, Mean Corpuscular Volume 83, Mean Corpuscular Hemoglobin 29.4, Mean Corpuscular Hemoglobin Concent 35.3, Red Cell Distribution Width 10.9L, Platelet Count 105L, Mean Platelet Volume 8.7, Neutrophils (%) (Auto) , Lymphocytes (%) (Auto) , Monocytes (%) (Auto) , Eosinophils (%) (Auto) , Basophils (%) (Auto) , Differential Total Cells Counted 100, Neutrophils % ( Manual) 66, Lymphocytes % (Manual) 25, Monocytes % (Manual) 9, Eosinophils % ( Manual) 0, Basophils % (Manual) 0, Band Neutrophils 0, Platelet Estimate DecreasedL, Platelet Morphology Normal, Red Blood Cell Morphology Normal, Sodium Level 140, Potassium Level 3.4L, Chloride Level 106, Carbon Dioxide Level 26, Anion Gap 8, Blood Urea Nitrogen 12, Creatinine 0.8, Estimat Glomerular Filtration Rate > 60, Glucose Level 90, Calcium Level 7.3L, Pro-B- Type Natriuretic Peptide 345H Current Medications Medications (Trade) Dose Ordered Sig/Deric Route PRN Reason Start Time Stop Time Status Last Admin Dose Admin Acetaminophen (Tylenol) 650 mg Q4H PRN ORAL Temp >100.5 03/20/20 02:45 04/19/20 02:44 03/21/20 02:02 Benztropine Mesylate (Cogentin) 0.5 mg BID ORAL 03/20/20 09:00 04/19/20 08:59 03/21/20 10:01 Cefepime HCl 1 gm/ Dextrose 55 ml @ 110 mls/hr Q24H IVPB 03/20/20 15:00 03/27/20 14:59 03/21/20 15:40 Dextrose (Dextrose 50%) 25 ml Q30M PRN IV Hypoglycemia 03/20/20 01:00 06/18/20 00:59 Dextrose (Dextrose 50%) 50 ml Q30M PRN IV Hypoglycemia 03/20/20 01:00 06/18/20 00:59 Dextrose/Sodium Chloride 1,000 ml @ 75 mls/hr [id number] IV 03/21/20 12:15 04/20/20 12:14 03/21/20 12:24 Diphenhydramine HCl (Benadryl) 50 mg BID ORAL 03/20/20 18:00 04/19/20 17:59 03/20/20 17:27 Docusate Sodium (Colace) 100 mg DAILY ORAL 03/20/20 09:00 04/19/20 08:59 03/21/20 10:01 Gabapentin (Neurontin) 300 mg THREE TIMES A DAY ORAL 03/20/20 09:00 04/19/20 08:59 03/21/20 10:01 Haloperidol (Haldol) 5 mg BID ORAL 03/20/20 18:00 05/04/20 17:59 03/21/20 10:01 Heparin Sodium (Porcine) (Heparin 5000 units/ml) 5,000 units EVERY 8 HOURS SUBQ 03/20/20 14:00 05/04/20 13:59 Insulin Aspart (NovoLOG) BEFORE MEALS AND HS SUBQ 03/20/20 06:30 06/18/20 06:29 Levothyroxine Sodium (Synthroid) 50 mcg DAILY@0630 ORAL 03/20/20 06:30 04/19/20 06:29 03/21/20 05:51 Lorazepam (Ativan) 1 mg Q6H PRN ORAL For Anxiety 03/20/20 16:45 03/27/20 16:44 03/21/20 02:01 Metformin HCl (Glucophage) 500 mg BIDBL ORAL 03/20/20 06:30 04/19/20 06:29 03/21/20 05:51 Quetiapine Fumarate (SEROqueL) 200 mg BID ORAL 03/20/20 18:00 05/04/20 08:59 03/21/20 10:01 Quetiapine Fumarate (SEROqueL) 400 mg QHS ORAL 03/20/20 21:00 05/04/20 20:59 03/20/20 20:51 Sennosides (Senokot) 17.2 mg QHS ORAL 03/20/20 21:00 04/19/20 20:59 03/20/20 20:51 Vancomycin HCl (Vanco rx to dose) 1 ea DAILY PRN MISC Per rx protocol 03/20/20 13:00 04/19/20 12:59 Vancomycin HCl 500 mg/Dextrose 110 ml @ 110 mls/hr Q12HR@0400,1600 IVPB 03/20/20 16:00 03/25/20 15:59 03/21/20 03:42 Cedric Benítez MD March 21, 2020 17:02
--- NOTE | 2020-03-21 17:16 | Diagnostic Imaging Report ---
EXAM: XR Chest, 1 View CLINICAL HISTORY: ALOC TECHNIQUE: Frontal view of the chest. COMPARISON: 03/19/20 FINDINGS: See Impression. IMPRESSION: 1. Worsening airspace disease most likely representing pneumonia at the right upper lobe and right lower lobe. 2. Unchanged peripheral patchy airspace opacities at the left base probably also representing pneumonia. 3. No other significant short interval change.
--- NOTE | 2020-03-21 18:17 | NUR ---
NURSE NOTES: Patient has not urinated today, performed a bladder scan which shows patient is retaining 763Ml urine. Contacted Dr Benítez, awaiting call back from . Addendum: 03/21/20 at 1838 by Chandler Rizvi RN CHARTED ON WRONG PATIENT PLEASE IGNORE.
--- NOTE | 2020-03-21 19:50 | NUR ---
NURSE NOTES: Report received from Chandler JAMES. Patient is awake and alert x 2. Patient noted to be on 2 liters of oxygen via nasal canula. No complaints of shortness of breath or chest pain at this time. Patient noted to be on contract and droplet precautions due to covid 19 rule out. Patient noted to be tested for covid 19 on March 19, 2020. Bed locked, in lowest position, and alarmed. Call light in reach. Will continue to follow plan of care.
--- NOTE | 2020-03-21 19:54 | NUR ---
HAND-OFF: Report given to JACOB Maya .
[2020-03-21 20:00] VITALS: BP 137/58
--- NOTE | 2020-03-21 21:09 | Cardiology Progress Note ---
Assessment/Plan Assessment/Plan 1. Hypotension, most likely secondary to COVID-19 pneumonia. May be impending septic shock, s/p 1000 ml IV NS with recovery of SBP now at 95 mmHg. 2. Suspect COVID-19 infection, screening is sent-out and still pending, discussed with the lab property maintenance supervisor. 3. History of COPD. Subjective Subjective Was hypotensive, s/p IVbolus 1000cc with recovery of BP. Sinus rhythm at rate of 71. Objective Last 24 Hour Vital Signs Date Time Temp Pulse Resp B/P (MAP) Pulse Ox O2 Delivery O2 Flow Rate FiO2 03/21/20 16:00 97.8 71 22 93/60 (71) 94 03/21/20 16:00 77 03/21/20 12:00 77 03/21/20 11:45 97.5 74 18 106/53 (70) 96 03/21/20 09:00 Nasal Cannula 2.0 03/21/20 08:00 97.5 74 18 78/53 (61) 96 03/21/20 08:00 77 03/21/20 04:00 88 03/21/20 04:00 98.2 77 20 121/71 (88) 96 03/21/20 02:32 99.0 03/21/20 00:00 99.6 64 19 130/83 (99) 95 03/21/20 00:00 104 Intake and Output 03/20/20 03/21/20 19:00 07:00 Intake Total 480 ml 120 ml Output Total 300 ml Balance 180 ml 120 ml Intake Oral 480 ml 120 ml Output Urine Total 300 ml # Voids 1 100 Laboratory Tests Test 03/21/20 07:45 White Blood Count 3.0 K/UL (4.8-10.8) L Red Blood Count 3.67 M/UL (4.70-6.10) L Hemoglobin 10.8 G/DL (14.2-18.0) L Hematocrit 30.5 % (42.0-52.0) L Mean Corpuscular Volume 83 FL (80-99) Mean Corpuscular Hemoglobin 29.4 PG (27.0-31.0) Mean Corpuscular Hemoglobin Concent 35.3 G/DL (32.0-36.0) Red Cell Distribution Width 10.9 % (11.6-14.8) L Platelet Count 105 K/UL (150-450) L Mean Platelet Volume 8.7 FL (6.5-10.1) Neutrophils (%) (Auto) % (45.0-75.0) Lymphocytes (%) (Auto) % (20.0-45.0) Monocytes (%) (Auto) % (1.0-10.0) Eosinophils (%) (Auto) % (0.0-3.0) Basophils (%) (Auto) % (0.0-2.0) Differential Total Cells Counted 100 Neutrophils % (Manual) 66 % (45-75) Lymphocytes % (Manual) 25 % (20-45) Monocytes % (Manual) 9 % (1-10) Eosinophils % (Manual) 0 % (0-3) Basophils % (Manual) 0 % (0-2) Band Neutrophils 0 % (0-8) Platelet Estimate Decreased L Platelet Morphology Normal Red Blood Cell Morphology Normal Sodium Level 140 MMOL/L (136-145) Potassium Level 3.4 MMOL/L (3.5-5.1) L Chloride Level 106 MMOL/L (98-107) Carbon Dioxide Level 26 MMOL/L (21-32) Anion Gap 8 mmol/L (5-15) Blood Urea Nitrogen 12 mg/dL (7-18) Creatinine 0.8 MG/DL (0.55-1.30) Estimat Glomerular Filtration Rate > 60 mL/min (>60) Glucose Level 90 MG/DL (74-106) Calcium Level 7.3 MG/DL (8.5-10.1) L Pro-B-Type Natriuretic Peptide 345 pg/mL (0-125) H Microbiology Date/Time Source Procedure Growth Status 03/19/20 20:15 Rectum Received Objective HEENT: Normocephalic and atraumatic. PERRLA, EOMI. NECK: No JVD, no carotid bruit. CARDIOVASCULAR: Normal S1S2, no murmurs, gallops or rubs, regular, rate and rhythm. PULMONARY: Diminished BS, crackles right lung. ABDOMEN: Non-tender, non-distended, + BS EXTREMITIES: No cyanosis, edema or clubbing. Ja Dinh MD March 21, 2020 21:09
[2020-03-21] MEDS: Sennosides 8.6mg tab ORAL SCH (22:19)
[2020-03-21] MEDS: QUEtiapine 200mg tab ORAL SCH (22:19)
[2020-03-22] VITALS: BP 104/60
[2020-03-22 03:34] LABS: BASOPHILS % (AUTO) 0.3 % (0.0-2.0); EOSINOPHILS % (AUTO) 2.4 % (0.0-3.0); HEMATOCRIT 31.6 % (42.0-52.0); HEMOGLOBIN 11.4 G/DL (14.2-18.0); LYMPHOCYTES % (AUTO) 18.4 % (20.0-45.0); MEAN CORPUSCULAR VOLUME 82 FL (80-99); MONOCYTES % (AUTO) 6.6 % (1.0-10.0); NEUTROPHILS % (AUTO) 72.3 % (45.0-75.0); PLATELET COUNT 114 K/UL (150-450); RED BLOOD COUNT 3.83 M/UL (4.70-6.10); RED CELL DISTRIBUTION WIDTH 10.8 % (11.6-14.8); WHITE BLOOD COUNT 3.7 K/UL (4.8-10.8)
[2020-03-22 04:00] VITALS: BP 126/60
[2020-03-22 04:05] LABS: ANION GAP 4 mmol/L (5-15); BLOOD UREA NITROGEN 6 mg/dL (7-18); CALCIUM 7.8 MG/DL (8.5-10.1); CARBON DIOXIDE 30 MMOL/L (21-32); CHLORIDE 105 MMOL/L (98-107); CREATININE 0.7 MG/DL (0.55-1.30); FERRITIN 483 NG/ML (8-388); POTASSIUM 3.2 MMOL/L (3.5-5.1); SODIUM 139 MMOL/L (136-145)
[2020-03-22] MEDS: Vancomycin 750mg/D5W 275ml IVPB SCH ×6 (05:00→21:14)
[2020-03-22] MEDS: Heparin 5000 units/ml inj SUBQ SCH ×3 (05:57→21:42)
[2020-03-22] MEDS: metFORMIN 500mg tab ORAL SCH ×2 (05:58→12:34)
[2020-03-22] MEDS: NovoLOG Insulin Flexpen SUBQ SCH ×4 (06:29→21:00)
--- NOTE | 2020-03-22 06:37 | NUR ---
NURSE NOTES: Paged Doctor Chava regarding potassium of 3.2. Waiting to hear back.
--- NOTE | 2020-03-22 06:44 | NUR ---
NURSE NOTES: Orders received from Doctor Larsen. Orders placed by Francesco JAMES.
--- NOTE | 2020-03-22 07:10 | NUR ---
NURSE NOTES:Handoff received from JACOB Maya. No acute signs of distress noted. patient is on nasal cannula at 2 liters, bed in the low and locked position with call light within reach. IV is clean dry and intact, running D5NS at 75ml/HR. will continue to monitor patient.
--- NOTE | 2020-03-22 07:11 | NUR ---
HAND-OFF: Report given to Chandler JAMES. Endorsed that patient was found to have a potassium of 3.2l. Updated on orders given by Doctor Larsen.
[2020-03-22 08:00] VITALS: BP 103/68
--- NOTE | 2020-03-22 08:18 | NUR ---
RD ASSESSMENT & RECOMMENDATIONS SEE CARE ACTIVITY FOR COMPLETE ASSESSMENT DAILY ESTIMATED NEEDS: Needs based on DM, Pulmonary/ 55kg 25-30 kcals/kg 5029-5367 total kcals 1-1.5 g protein/kg 55-82 g total protein 25-30 mL/kg 3258-2345 total fluid mLs NUTRITION DIAGNOSIS: Possible chewing and/or swallowing difficulty R/T dysphagia, decreased cognitive fxn as evidenced by pt on [facility] soft ground texture, w/ variable and poor intake at this time. CURRENT DIET:[facility] MED, [facility] soft ground PO DIET RECOMMENDATIONS: [facility] MED/ texture per DIRECTOR MEETINGS or tolerated ADDITIONAL RECOMMENDATIONS: * Per SNF, ht=66" and February vp=[id number] -> rec to re-calibrate bedscale wt for accurate CBW * Add Glucerna TID w/ meals * Continue D5 IVF w/ continued poor/variable PO to prevent hypoglycemia * DIRECTOR MEETINGS eval for appropriate texture * MVI x 1 as supplemenet * Monitor lytes, replete as needed (low K)
[2020-03-22] MEDS: Benztropine 1mg tab ORAL SCH ×3 (09:00→17:07)
[2020-03-22] MEDS: Docusate 100mg cap ORAL SCH ×2 (09:00→10:17)
--- NOTE | 2020-03-22 09:15 | Consultation ---
DATE OF CONSULTATION: HISTORY OF PRESENT ILLNESS: This is a 74-year-old male patient. The patient is admitted to the hospital. Reason for admission, the patient came to the hospital with COPD, suspected COVID-19 infection, but he has a lot of psychomotor agitation and found this patient in room. He was constantly yelling at the nurses, yelling at them for not opening the door. He refused to allow a male nurse give him medication, he insisted that a specific female nurse give him the medication and throughout the entire time he was yelling. He chews his medication, extremely mood labile and his current infection has caused increased mood lability, worsened by the stress of his medical illness. That is why the attending has requested daily psychiatric consultation. PAST MEDICAL HISTORY: The patient does have a history of respiratory insufficiency and he also has COPD. He also has pneumonia, bronchitis. ALLERGIES: He has no known drug allergies. PSYCHOTROPIC MEDICATIONS ON ADMISSION: He normally takes Seroquel 100 mg twice a day, , Neurontin 300 mg three times a day and Haldol at bedtime, but he denies still very mood labile, agitated, and combative, verbally abusive to staff. SUBSTANCE USE HISTORY: No known history of any drug or alcohol use. FAMILY PSYCHIATRIC HISTORY: Denies. PAIN ASSESSMENT: 01/26 pain. DEVELOPMENTAL PROBLEM: Denies. SOCIAL HISTORY: The patient is currently living in [facility]. Financially supported by [employer] and Medicare. STRENGTHS: Psychiatric history of paranoid schizophrenia. He has had multiple psychiatric admissions. Positive strengths. He is motivated to get better and he is healthy. WEAKNESSES: Impulsive, minimal support system. MENTAL STATUS EXAMINATION: This is a 74-year-old male. Appearance is disheveled. Attitude, irritable and agitated, affect restricted. Intellect poor because he does not know current events, does not know last four presidents. Mood, depressed and anxious. Motor activity, psychomotor agitation. Attention span is poor because he cannot do serial 7's. Spell world backwards. Orientation x2. He is oriented to person and place, not time and situation. Speech is pressured, nonsensical. Thought process, disorganized and illogical. Thought content, auditory hallucinations and paranoid delusions. Perception is poor because he has perceptual disturbances such as auditory hallucinations and paranoid delusions. Abstract reasoning is poor because he does not understand proverbs, only has concrete thinking. Insight is poor because he does not recognize having any psych disorder. Judgment is poor because he cannot make medical decisions for himself. DIAGNOSES: 1. Paranoid schizophrenia. 2. Secondary medical COPD. 3. Psychosocial stressors, financial. 4. Functional impairment, severe. PLAN: I am going to raise his Seroquel to 200 mg twice a day to stabilize his mood, also 3 times a day and also going to continue this patient on his medication regimen of Ativan 1 every 6 hours p.r.n. anxiety and agitation, and then also Cogentin 0.5 mg twice a day. A 20 minutes of cognitive behavioral therapy to help him identify his automatic negative thoughts and help him convert his negative thoughts to more positive thoughts to reduce depression, anxiety, and mood lability. Chart reviewed. Discussed with staff. Seen and assessed at beside. Thank you Dr. Ramone Larsen for this interesting consultation. I will be happy to follow this patient with you throughout his hospital course. Cristina Brandt M.D. DR: Aston JOB#: [id number] CC:
--- NOTE | 2020-03-22 10:01 | General Progress Note ---
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 Codes: E11.42 - Type 2 diabetes mellitus with diabetic polyneuropathy SNOMED: 14399635, 61429390 (5) Hypothyroid ICD Codes: E03.9 - Hypothyroidism, unspecified SNOMED: 13663495 (6) Weak ICD Codes: R53.1 - Weakness SNOMED: 30970866 (7) COPD (chronic obstructive pulmonary disease) ICD Codes: J44.9 - Chronic obstructive pulmonary disease, unspecified SNOMED: 56270379 (8) Acute febrile illness ICD Codes: R50.9 - Fever, unspecified SNOMED: 404867293 (9) Suspected 2019 novel coronavirus infection ICD Codes: Z20.828 - Contact with and (suspected) exposure to other viral communicable diseases SNOMED: 754447961 (10) Pancytopenia ICD Codes: D61.818 - Other pancytopenia SNOMED: 638120023 Status: unchanged Assessment/Plan: o2 pulm tx abx pt diet cbc bmp am heme eval aru eval Subjective Constitutional: Reports: weakness Allergies: Coded Allergies: No Known Allergies (Unverified , 03/19/20) All Systems: reviewed and negative except above Subjective o2nc calm Objective Last 24 Hour Vital Signs Date Time Temp Pulse Resp B/P (MAP) Pulse Ox O2 Delivery O2 Flow Rate FiO2 03/22/20 08:00 99.0 79 20 103/68 (80) 92 03/22/20 04:00 78 03/22/20 04:00 97.7 60 20 126/60 (82) 97 03/22/20 00:00 77 03/22/20 00:00 99.0 86 22 104/60 (75) 98 03/21/20 21:00 Nasal Cannula 2.0 03/21/20 20:00 98.0 65 22 137/58 (84) 95 03/21/20 20:00 71 03/21/20 16:00 97.8 71 22 93/60 (71) 94 5/3/20 16:00 77 03/21/20 12:00 77 03/21/20 11:45 97.5 74 18 106/53 (70) 96 Intake and Output 03/21/20 03/22/20 19:00 07:00 Intake Total 315 ml 858.333 ml Output Total 775 ml 300 ml Balance -460 ml 558.333 ml Intake Oral 240 ml IV Total 75 ml 858.333 ml Output Urine Total 775 ml 300 ml Laboratory Tests 03/22/20 03:21: White Blood Count 3.7L, Red Blood Count 3.83L, Hemoglobin 11.4L, Hematocrit 31.6L, Mean Corpuscular Volume 82, Mean Corpuscular Hemoglobin 29.6, Mean Corpuscular Hemoglobin Concent 36.0, Red Cell Distribution Width 10.8L, Platelet Count 114L, Mean Platelet Volume 8.1, Neutrophils (%) (Auto) 72.3, Lymphocytes (%) (Auto) 18.4L, Monocytes (%) (Auto) 6.6, Eosinophils (%) (Auto) 2.4, Basophils (%) (Auto) 0.3, Sodium Level 139, Potassium Level 3.2L, Chloride Level 105, Carbon Dioxide Level 30, Anion Gap 4L, Blood Urea Nitrogen 6L, Creatinine 0.7, Estimat Glomerular Filtration Rate > 60, Glucose Level 102, Calcium Level 7.8L, Ferritin 483H, C-Reactive Protein, Quantitative 9.6H, Vancomycin Level Trough 3.1L Height (Feet): 5 Height (Inches): 6.00 Weight (Pounds): 111 General Appearance: lethargic EENT: normal ENT inspection Neck: normal alignment Cardiovascular: normal rate, regular rhythm Respiratory/Chest: no respiratory distress, no accessory muscle use Extremities: normal inspection Skin: normal pigmentation Ramone Larsen DO March 22, 2020 10:01
--- NOTE | 2020-03-22 10:23 | Consultation ---
History of Present Illness General Chief Complaint: Fever Present Illness Allergies: Coded Allergies: No Known Allergies (Unverified , 03/19/20) Medication History Scheduled Aripiprazole* (Abilify*), 400 MG IM monthly, (Reported) Benztropine Mesylate* (Benztropine Mesylate*), 0.5 MG ORAL BID, (Reported) Docusate Sodium* (Docusate Sodium*), 100 MG ORAL DAILY, (Reported) Gabapentin* (Gabapentin*), 300 MG ORAL THREE TIMES A DAY, (Reported) Haloperidol* (Haldol*), 3 MG ORAL QHS, (Reported) Melatonin (Melatonin), 3 MG ORAL BEDTIME, (Reported) Metformin Hcl* (Metformin Hcl*), 500 MG ORAL TWICE A DAY, (Reported) Quetiapine Fumarate* (Quetiapine Fumarate*), 400 MG ORAL nightly, (Reported) Sennosides (Senna), 8.6 MG PO nightly, (Reported) Patient History Healthcare decision maker N Resuscitation status Advanced Directive on File Physical Exam Last 24 Hour Vital Signs Date Time Temp Pulse Resp B/P (MAP) Pulse Ox O2 Delivery O2 Flow Rate FiO2 03/22/20 08:00 99.0 79 20 103/68 (80) 92 03/22/20 04:00 78 03/22/20 04:00 97.7 60 20 126/60 (82) 97 03/22/20 00:00 77 03/22/20 00:00 99.0 86 22 104/60 (75) 98 03/21/20 21:00 Nasal Cannula 2.0 03/21/20 20:00 98.0 65 22 137/58 (84) 95 03/21/20 20:00 71 03/21/20 16:00 97.8 71 22 93/60 (71) 94 03/21/20 16:00 77 03/21/20 12:00 77 03/21/20 11:45 97.5 74 18 106/53 (70) 96 Intake and Output 03/21/20 03/22/20 19:00 07:00 Intake Total 315 ml 858.333 ml Output Total 775 ml 300 ml Balance -460 ml 558.333 ml Intake Oral 240 ml IV Total 75 ml 858.333 ml Output Urine Total 775 ml 300 ml Laboratory Tests Test 03/22/20 03:21 White Blood Count 3.7 K/UL (4.8-10.8) L Red Blood Count 3.83 M/UL (4.70-6.10) L Hemoglobin 11.4 G/DL (14.2-18.0) L Hematocrit 31.6 % (42.0-52.0) L Mean Corpuscular Volume 82 FL (80-99) Mean Corpuscular Hemoglobin 29.6 PG (27.0-31.0) Mean Corpuscular Hemoglobin Concent 36.0 G/DL (32.0-36.0) Red Cell Distribution Width 10.8 % (11.6-14.8) L Platelet Count 114 K/UL (150-450) L Mean Platelet Volume 8.1 FL (6.5-10.1) Neutrophils (%) (Auto) 72.3 % (45.0-75.0) Lymphocytes (%) (Auto) 18.4 % (20.0-45.0) L Monocytes (%) (Auto) 6.6 % (1.0-10.0) Eosinophils (%) (Auto) 2.4 % (0.0-3.0) Basophils (%) (Auto) 0.3 % (0.0-2.0) Sodium Level 139 MMOL/L (136-145) Potassium Level 3.2 MMOL/L (3.5-5.1) L Chloride Level 105 MMOL/L (98-107) Carbon Dioxide Level 30 MMOL/L (21-32) Anion Gap 4 mmol/L (5-15) L Blood Urea Nitrogen 6 mg/dL (7-18) L Creatinine 0.7 MG/DL (0.55-1.30) Estimat Glomerular Filtration Rate > 60 mL/min (>60) Glucose Level 102 MG/DL (74-106) Calcium Level 7.8 MG/DL (8.5-10.1) L Ferritin 483 NG/ML (8-388) H C-Reactive Protein, Quantitative 9.6 mg/dL (0.00-0.90) H Vancomycin Level Trough 3.1 ug/mL (5.0-12.0) L Height (Feet): 5 Height (Inches): 6.00 Weight (Pounds): 111 Medications Current Medications Medications (Trade) Dose Ordered Sig/Deric Route PRN Reason Start Time Stop Time Status Last Admin Dose Admin Acetaminophen (Tylenol) 650 mg Q4H PRN ORAL Temp >100.5 03/20/20 02:45 04/19/20 02:44 03/21/20 02:02 Benztropine Mesylate (Cogentin) 0.5 mg BID ORAL 03/20/20 09:00 04/19/20 08:59 03/22/20 10:18 Cefepime HCl 1 gm/ Dextrose 55 ml @ 110 mls/hr Q24H IVPB 03/20/20 15:00 03/27/20 14:59 03/21/20 15:40 Dextrose (Dextrose 50%) 25 ml Q30M PRN IV Hypoglycemia 03/20/20 01:00 06/18/20 00:59 Dextrose (Dextrose 50%) 50 ml Q30M PRN IV Hypoglycemia 03/20/20 01:00 06/18/20 00:59 Dextrose/Sodium Chloride 1,000 ml @ 75 mls/hr [id number] IV 03/21/20 12:15 04/20/20 12:14 03/21/20 22:22 Diphenhydramine HCl (Benadryl) 50 mg BID ORAL 03/20/20 18:00 04/19/20 17:59 03/20/20 17:27 Docusate Sodium (Colace) 100 mg DAILY ORAL 03/20/20 09:00 04/19/20 08:59 03/22/20 10:17 Gabapentin (Neurontin) 300 mg THREE TIMES A DAY ORAL 03/20/20 09:00 04/19/20 08:59 03/22/20 10:17 Haloperidol (Haldol) 5 mg BID ORAL 03/20/20 18:00 05/04/20 17:59 03/22/20 10:18 Heparin Sodium (Porcine) (Heparin 5000 units/ml) 5,000 units EVERY 8 HOURS SUBQ 03/20/20 14:00 05/04/20 13:59 Insulin Aspart (NovoLOG) BEFORE MEALS AND HS SUBQ 03/20/20 06:30 06/18/20 06:29 Levothyroxine Sodium (Synthroid) 50 mcg DAILY@0630 ORAL 03/20/20 06:30 04/19/20 06:29 03/22/20 05:58 Lorazepam (Ativan) 1 mg Q6H PRN ORAL For Anxiety 03/20/20 16:45 03/27/20 16:44 03/21/20 02:01 Metformin HCl (Glucophage) 500 mg BIDBL ORAL 03/20/20 06:30 04/19/20 06:29 03/22/20 05:58 Quetiapine Fumarate (SEROqueL) 200 mg BID ORAL 03/20/20 18:00 05/04/20 08:59 03/22/20 10:17 Quetiapine Fumarate (SEROqueL) 400 mg QHS ORAL 03/20/20 21:00 05/04/20 20:59 03/21/20 22:19 Sennosides (Senokot) 17.2 mg QHS ORAL 03/20/20 21:00 04/19/20 20:59 03/21/20 22:19 Vancomycin HCl (Vanco rx to dose) 1 ea DAILY PRN MISC Per rx protocol 03/20/20 13:00 04/19/20 12:59 Vancomycin HCl 750 mg/Dextrose 275 ml @ 183.333 mls/hr Q8H IVPB 03/22/20 05:00 03/27/20 04:59 03/22/20 05:00 Assessment/Plan Assessment/Plan: Hematology Consultation Note REQ MD: Ramone Larsen RFC: Pancytopenia DOS: 03/22/[address] Larsen to eval Patient is a 74-year-old male sent in from [facility] after increased fever as well as nonproductive cough. Prior history of COPD. Patient had been noted to have increased respiratory rate. here to r/o covid infection, noted on imaging to have pna, has been seen by id, pulm, cards and heme consulted for eval of potential pancytopenia, pending aru eval, seen by psych as well. Coded Allergies: No Known Allergies (Unverified , 03/19/20) Patient History Reviewed Nursing Documentation: PMH: Agreed; PSxH: Agreed Surgeries: difficult to obtain Meds: noted Family history difficult to obtain Review of Systems noted and is otherwise negative Physical Exam: Vitals: reviewed General: NAD, A+O x1 HEENT: nc, at Neck: supple Chest: clear breath sounds bilaterally Cardiovascular: RRR, no s3, s4 Abdomen: soft, nontender, nd Extremities: no cce, normal range of motion Neuro: confused Labs noted Imaging reviewed Assessment and Recs # Pancytopenia -- multiple etiologies could be related to underlying liver disease, medication-induced, infection versus viral syndrome versus underlying bone marrow cause, in this case is related to underlying covid19+ --> peripheral smear has been ordered and does not show significant abnormalities --> Medications have been reviewed --> Continue to monitor for improvement, trend cbc --> Hep panel and HIV have been ordered --> US abd ordered to r/o cirrhosis and hepatosplenomegaly --> consider if doesn 't resolve in several days --> reverse isolation if ANC is <2000 --> Give neupogen if ANC <1000 --> Transfuse if hgb <7, with 1 unit prbc --> consider bone marrow biopsy if no other causes are found -> wbc 5-->3-->3.7 # Multifocal pna -- with respiratory distress -- Suspected 2018 novel coronavirus infection --> covid 19 rule out --> per Dr. Benítez --> per ID, abx cefepime/vanc # COPD (chronic obstructive pulmonary disease) --> breathing rx as needed # Hypotension, most likely secondary to COVID-19 pneumoni --> s/p 1000 ml IV NS with recovery of SBP now at 95 mmHg. --> per Dr. Dinh # Hypokalemia # Dm2 # Schizophrenia # Seizure disorder # [place] resident (Jourdan Bell) The timing of this note does not necessarily reflect the time of the patient was seen. Greatly appreciate consultation. Andry Culp MD March 22, 2020 10:23
--- NOTE | 2020-03-22 10:33 | NUR ---
DISCHARGE PLANNING: PATIENT REFERRED TO GRACIE SINGH T: [phone] F: [phone] CM TO F/U
--- NOTE | 2020-03-22 10:41 | NUR ---
NURSE NOTES:Patient refused medications stating: " I don't want to take that it's poison" explained importance of medication regime and compliance and informed patient that the medications are prescribed by the doctor to help the patient health and wellbeing, but patient refused. Spent 5 minutes trying to convince patient with no luck.
--- NOTE | 2020-03-22 11:40 | Pulmonology Progress Note ---
Assessment/Plan Assessment/Plan IMPRESSION: 1. Right lung pneumonia. 2. pen[facility]iary resident. 3. Psych disorder. 4. Hypothyroidism. DISCUSSION: Continue broad-spectrum antibiotics. Continue medications. Continue oxygen and pulmonary hygiene. Currently saturating well on 2L/min O2 Await COVID-19. I will follow carefully. Cedric Benítez M.D. Subjective Interval Events: None new Constitutional: Reports: no symptoms HEENT: Repors: no symptoms Respiratory: Reports: no symptoms Cardiovascular: Reports: no symptoms Allergies: Coded Allergies: No Known Allergies (Unverified , 03/19/20) All Systems: reviewed and negative except above Objective Last 24 Hour Vital Signs Date Time Temp Pulse Resp B/P (MAP) Pulse Ox O2 Delivery O2 Flow Rate FiO2 03/22/20 09:00 Nasal Cannula 2.0 03/22/20 08:00 78 03/22/20 08:00 99.0 79 20 103/68 (80) 92 03/22/20 04:00 78 03/22/20 04:00 97.7 60 20 126/60 (82) 97 03/22/20 00:00 77 03/22/20 00:00 99.0 86 22 104/60 (75) 98 03/21/20 21:00 Nasal Cannula 2.0 03/21/20 20:00 98.0 65 22 137/58 (84) 95 03/21/20 20:00 71 03/21/20 16:00 97.8 71 22 93/60 (71) 94 03/21/20 16:00 77 03/21/20 12:00 77 03/21/20 11:45 97.5 74 18 106/53 (70) 96 Intake and Output 03/21/20 03/22/20 19:00 07:00 Intake Total 315 ml 858.333 ml Output Total 775 ml 300 ml Balance -460 ml 558.333 ml Intake Oral 240 ml IV Total 75 ml 858.333 ml Output Urine Total 775 ml 300 ml General Appearance: no acute distress HEENT: normocephalic Respiratory/Chest: chest wall non-tender Cardiovascular: normal peripheral pulses Abdomen: normal bowel sounds Microbiology Date/Time Source Procedure Growth Status 03/19/20 20:15 Nasal Nares MRSA Culture - Final NO METHICILLIN RESISTANT STAPH AUREUS... Complete 03/20/20 20:15 Rectum VRE Culture - Final NO VANCOMYCIN RESISTANT ENTEROCOCCUS ... Complete 03/19/20 20:15 Rectum - Final NO CARBAPENEM-RESISTANT ENTEROBACTERI... Complete Laboratory Tests 03/22/20 03:21: White Blood Count 3.7L, Red Blood Count 3.83L, Hemoglobin 11.4L, Hematocrit 31.6L, Mean Corpuscular Volume 82, Mean Corpuscular Hemoglobin 29.6, Mean Corpuscular Hemoglobin Concent 36.0, Red Cell Distribution Width 10.8L, Platelet Count 114L, Mean Platelet Volume 8.1, Neutrophils (%) (Auto) 72.3, Lymphocytes (%) (Auto) 18.4L, Monocytes (%) (Auto) 6.6, Eosinophils (%) (Auto) 2.4, Basophils (%) (Auto) 0.3, Sodium Level 139, Potassium Level 3.2L, Chloride Level 105, Carbon Dioxide Level 30, Anion Gap 4L, Blood Urea Nitrogen 6L, Creatinine 0.7, Estimat Glomerular Filtration Rate > 60, Glucose Level 102, Calcium Level 7.8L, Ferritin 483H, C-Reactive Protein, Quantitative 9.6H, Vancomycin Level Trough 3.1L Current Medications Medications (Trade) Dose Ordered Sig/Deric Route PRN Reason Start Time Stop Time Status Last Admin Dose Admin Acetaminophen (Tylenol) 650 mg Q4H PRN ORAL Temp >100.5 03/20/20 02:45 04/19/20 02:44 03/21/20 02:02 Benztropine Mesylate (Cogentin) 0.5 mg BID ORAL 03/20/20 09:00 04/19/20 08:59 03/21/20 17:25 Cefepime HCl 1 gm/ Dextrose 55 ml @ 110 mls/hr Q24H IVPB 03/20/20 15:00 03/27/20 14:59 03/21/20 15:40 Dextrose (Dextrose 50%) 25 ml Q30M PRN IV Hypoglycemia 03/20/20 01:00 06/18/20 00:59 Dextrose (Dextrose 50%) 50 ml Q30M PRN IV Hypoglycemia 03/20/20 01:00 06/18/20 00:59 Dextrose/Sodium Chloride 1,000 ml @ 75 mls/hr [id number] IV 03/21/20 12:15 04/20/20 12:14 03/21/20 22:22 Diphenhydramine HCl (Benadryl) 50 mg BID ORAL 03/20/20 18:00 04/19/20 17:59 03/20/20 17:27 Docusate Sodium (Colace) 100 mg DAILY ORAL 03/20/20 09:00 04/19/20 08:59 03/21/20 10:01 Gabapentin (Neurontin) 300 mg THREE TIMES A DAY ORAL 03/20/20 09:00 04/19/20 08:59 03/21/20 17:25 Haloperidol (Haldol) 5 mg BID ORAL 03/20/20 18:00 05/04/20 17:59 03/21/20 17:25 Heparin Sodium (Porcine) (Heparin 5000 units/ml) 5,000 units EVERY 8 HOURS SUBQ 03/20/20 14:00 05/04/20 13:59 Insulin Aspart (NovoLOG) BEFORE MEALS AND HS SUBQ 03/20/20 06:30 06/18/20 06:29 Levothyroxine Sodium (Synthroid) 50 mcg DAILY@0630 ORAL 03/20/20 06:30 04/19/20 06:29 03/22/20 05:58 Lorazepam (Ativan) 1 mg Q6H PRN ORAL For Anxiety 03/20/20 16:45 03/27/20 16:44 03/21/20 02:01 Metformin HCl (Glucophage) 500 mg BIDBL ORAL 03/20/20 06:30 04/19/20 06:29 03/22/20 05:58 Quetiapine Fumarate (SEROqueL) 200 mg BID ORAL 03/20/20 18:00 05/04/20 08:59 03/21/20 10:01 Quetiapine Fumarate (SEROqueL) 400 mg QHS ORAL 03/20/20 21:00 05/04/20 20:59 03/21/20 22:19 Sennosides (Senokot) 17.2 mg QHS ORAL 03/20/20 21:00 04/19/20 20:59 03/21/20 22:19 Vancomycin HCl (Vanco rx to dose) 1 ea DAILY PRN MISC Per rx protocol 03/20/20 13:00 04/19/20 12:59 Vancomycin HCl 750 mg/Dextrose 275 ml @ 183.333 mls/hr Q8H IVPB 03/22/20 05:00 03/27/20 04:59 03/22/20 05:00 Cedric Benítez MD March 22, 2020 11:40
[2020-03-22 12:00] VITALS: BP 97/61
[2020-03-22 12:20] LABS: BASOPHILS % (AUTO) 0.2 % (0.0-2.0); EOSINOPHILS % (AUTO) 1.9 % (0.0-3.0); HEMATOCRIT 29.8 % (42.0-52.0); HEMOGLOBIN 10.6 G/DL (14.2-18.0); LYMPHOCYTES % (AUTO) 19.4 % (20.0-45.0); MEAN CORPUSCULAR VOLUME 83 FL (80-99); MONOCYTES % (AUTO) 6.6 % (1.0-10.0); NEUTROPHILS % (AUTO) 71.9 % (45.0-75.0); PLATELET COUNT 116 K/UL (150-450); RED BLOOD COUNT 3.58 M/UL (4.70-6.10); RED CELL DISTRIBUTION WIDTH 10.8 % (11.6-14.8); WHITE BLOOD COUNT 3.7 K/UL (4.8-10.8)
[2020-03-22 12:41] LABS: ANION GAP 6 mmol/L (5-15); BLOOD UREA NITROGEN 9 mg/dL (7-18); CALCIUM 7.4 MG/DL (8.5-10.1); CARBON DIOXIDE 29 MMOL/L (21-32); CHLORIDE 106 MMOL/L (98-107); CREATININE 0.5 MG/DL (0.55-1.30); POTASSIUM 3.2 MMOL/L (3.5-5.1); SODIUM 140 MMOL/L (136-145)
[2020-03-22] MEDS: D5NS 1,000 ML IV SCH (12:53)
--- NOTE | 2020-03-22 13:09 | Infectious Diseases Prog Note ---
Assessment/Plan Assessment/Plan Assessment: Multifocal PNA- likely COVID19 (resident of [place] with large outbreak)- on 2l NC -03/21 CXR: Worsening airspace disease most likely representing pneumonia at the right upper lobe and right lower lobe. Unchanged peripheral patchy airspace opacities at the left base probably also representing pneumonia. -CXR: Patchy right lung opacities suggest multifocal pneumonia. Possible right hilar enlargement versus artifactual prominence due to patient positioning , recommend attention on followup. If there is continued concern, consider CT. Fever; SP Pancytopenia/Lymphocytopenia -u/a neg Hypokalemia COPD Dm2 schizophrenia seizure disorder polyneuropathy hypothyroidism [place] resident (Jourdan Bell) Plan: -Continue empiric IV Vancomycin #3 and Cefepime #4 for now -03/19 sp Flagyl x1 -f/u cx -Monitor CBC/CMP, temperatures -COVID19 testing and isolation -aspiration precautions Thank you for consulting [facility]. Will continue to follow along with you. Discussed with RN. Subjective Allergies: Coded Allergies: No Known Allergies (Unverified , 03/19/20) Subjective afebrile 48hrs at 2l NC Objective Vital Signs Last 24 Hour Vital Signs Date Time Temp Pulse Resp B/P (MAP) Pulse Ox O2 Delivery O2 Flow Rate FiO2 03/22/20 09:00 Nasal Cannula 2.0 03/22/20 08:00 78 03/22/20 08:00 99.0 79 20 103/68 (80) 92 03/22/20 04:00 78 03/22/20 04:00 97.7 60 20 126/60 (82) 97 03/22/20 00:00 77 03/22/20 00:00 99.0 86 22 104/60 (75) 98 03/21/20 21:00 Nasal Cannula 2.0 03/21/20 20:00 98.0 65 22 137/58 (84) 95 03/21/20 20:00 71 03/21/20 16:00 97.8 71 22 93/60 (71) 94 03/21/20 16:00 77 Height (Feet): 5 Height (Inches): 6.00 Weight (Pounds): 111 Objective not examined to limit [id number] exposure Microbiology Date/Time Source Procedure Growth Status 03/19/20 20:15 Nasal Nares MRSA Culture - Final NO METHICILLIN RESISTANT STAPH AUREUS... Complete 03/20/20 20:15 Rectum VRE Culture - Final NO VANCOMYCIN RESISTANT ENTEROCOCCUS ... Complete 03/19/20 20:15 Rectum - Final NO CARBAPENEM-RESISTANT ENTEROBACTERI... Complete Laboratory Tests Test 03/22/20 03:21 03/22/20 11:45 White Blood Count 3.7 K/UL (4.8-10.8) L 3.7 K/UL (4.8-10.8) L Red Blood Count 3.83 M/UL (4.70-6.10) L 3.58 M/UL (4.70-6.10) L Hemoglobin 11.4 G/DL (14.2-18.0) L 10.6 G/DL (14.2-18.0) L Hematocrit 31.6 % (42.0-52.0) L 29.8 % (42.0-52.0) L Mean Corpuscular Volume 82 FL (80-99) 83 FL (80-99) Mean Corpuscular Hemoglobin 29.6 PG (27.0-31.0) 29.5 PG (27.0-31.0) Mean Corpuscular Hemoglobin Concent 36.0 G/DL (32.0-36.0) 35.5 G/DL (32.0-36.0) Red Cell Distribution Width 10.8 % (11.6-14.8) L 10.8 % (11.6-14.8) L Platelet Count 114 K/UL (150-450) L 116 K/UL (150-450) L Mean Platelet Volume 8.1 FL (6.5-10.1) 7.6 FL (6.5-10.1) Neutrophils (%) (Auto) 72.3 % (45.0-75.0) 71.9 % (45.0-75.0) Lymphocytes (%) (Auto) 18.4 % (20.0-45.0) L 19.4 % (20.0-45.0) L Monocytes (%) (Auto) 6.6 % (1.0-10.0) 6.6 % (1.0-10.0) Eosinophils (%) (Auto) 2.4 % (0.0-3.0) 1.9 % (0.0-3.0) Basophils (%) (Auto) 0.3 % (0.0-2.0) 0.2 % (0.0-2.0) Sodium Level 139 MMOL/L (136-145) 140 MMOL/L (136-145) Potassium Level 3.2 MMOL/L (3.5-5.1) L 3.2 MMOL/L (3.5-5.1) L Chloride Level 105 MMOL/L (98-107) 106 MMOL/L (98-107) Carbon Dioxide Level 30 MMOL/L (21-32) 29 MMOL/L (21-32) Anion Gap 4 mmol/L (5-15) L 6 mmol/L (5-15) Blood Urea Nitrogen 6 mg/dL (7-18) L 9 mg/dL (7-18) Creatinine 0.7 MG/DL (0.55-1.30) 0.5 MG/DL (0.55-1.30) L Estimat Glomerular Filtration Rate > 60 mL/min (>60) > 60 mL/min (>60) Glucose Level 102 MG/DL (74-106) 108 MG/DL (74-106) H Calcium Level 7.8 MG/DL (8.5-10.1) L 7.4 MG/DL (8.5-10.1) L Ferritin 483 NG/ML (8-388) H C-Reactive Protein, Quantitative 9.6 mg/dL (0.00-0.90) H Vancomycin Level Trough 3.1 ug/mL (5.0-12.0) L Hepatitis A IgM Antibody Pending Hepatitis B Surface Antigen Pending Hepatitis B Core IgM Antibody Pending Hepatitis C Antibody Pending HIV (1&2) Antibody Rapid Pending Current Medications Medications (Trade) Dose Ordered Sig/Deric Route PRN Reason Start Time Stop Time Status Last Admin Dose Admin Acetaminophen (Tylenol) 650 mg Q4H PRN ORAL Temp >100.5 03/20/20 02:45 04/19/20 02:44 03/21/20 02:02 Benztropine Mesylate (Cogentin) 0.5 mg BID ORAL 03/20/20 09:00 04/19/20 08:59 03/21/20 17:25 Cefepime HCl 1 gm/ Dextrose 55 ml @ 110 mls/hr Q24H IVPB 03/20/20 15:00 03/27/20 14:59 03/21/20 15:40 Dextrose (Dextrose 50%) 25 ml Q30M PRN IV Hypoglycemia 03/20/20 01:00 06/18/20 00:59 Dextrose (Dextrose 50%) 50 ml Q30M PRN IV Hypoglycemia 03/20/20 01:00 06/18/20 00:59 Dextrose/Sodium Chloride 1,000 ml @ 75 mls/hr [id number] IV 03/21/20 12:15 04/20/20 12:14 03/22/20 12:53 Diphenhydramine HCl (Benadryl) 50 mg BID ORAL 03/20/20 18:00 04/19/20 17:59 03/20/20 17:27 Docusate Sodium (Colace) 100 mg DAILY ORAL 03/20/20 09:00 04/19/20 08:59 03/21/20 10:01 Gabapentin (Neurontin) 300 mg THREE TIMES A DAY ORAL 03/20/20 09:00 04/19/20 08:59 03/22/20 12:34 Haloperidol (Haldol) 5 mg BID ORAL 03/20/20 18:00 05/04/20 17:59 03/21/20 17:25 Heparin Sodium (Porcine) (Heparin 5000 units/ml) 5,000 units EVERY 8 HOURS SUBQ 03/20/20 14:00 05/04/20 13:59 Insulin Aspart (NovoLOG) BEFORE MEALS AND HS SUBQ 03/20/20 06:30 06/18/20 06:29 Levothyroxine Sodium (Synthroid) 50 mcg DAILY@0630 ORAL 03/20/20 06:30 04/19/20 06:29 03/22/20 05:58 Lorazepam (Ativan) 1 mg Q6H PRN ORAL For Anxiety 03/20/20 16:45 03/27/20 16:44 03/21/20 02:01 Metformin HCl (Glucophage) 500 mg BIDBL ORAL 03/20/20 06:30 04/19/20 06:29 03/22/20 12:34 Quetiapine Fumarate (SEROqueL) 200 mg BID ORAL 03/20/20 18:00 05/04/20 08:59 03/21/20 10:01 Quetiapine Fumarate (SEROqueL) 400 mg QHS ORAL 03/20/20 21:00 05/04/20 20:59 03/21/20 22:19 Sennosides (Senokot) 17.2 mg QHS ORAL 03/20/20 21:00 04/19/20 20:59 03/21/20 22:19 Vancomycin HCl (Vanco rx to dose) 1 ea DAILY PRN MISC Per rx protocol 03/20/20 13:00 04/19/20 12:59 Vancomycin HCl 750 mg/Dextrose 275 ml @ 183.333 mls/hr Q8H IVPB 03/22/20 05:00 03/27/20 04:59 03/22/20 12:53 Sandra Whitney M.D. March 22, 2020 13:09
[2020-03-22] MEDS: Cefepime HCl 1 GM in D5W 55 ML IVPB SCH (14:52)
[2020-03-22 16:00] VITALS: BP 115/78
--- NOTE | 2020-03-22 17:02 | NUR ---
*-*DISCHARGE PLANNING*-* PATIENT REFERRED TO GRACIE SINGH T: [phone] F: [phone] ~~~~~~~~~~~~~~~~ PENDING COVID TEST~~~~~~~~~~~~~~
--- NOTE | 2020-03-22 17:30 | Progress Note ---
DATE: 03/22/2020 SUBJECTIVE: This is a 74-year-old male patient with acute febrile illness, rule out COVID-19. He has altered mental status, confusion, disorganized thought process, and decline in cognition below his baseline. MENTAL STATUS EXAMINATION: This is a 74-year-old male. Appearance is disheveled. Attitude, irritable and agitated. Affect, guarded and restricted. Intellect poor. Mood, depressed and anxious. Motor activity, psychomotor agitation. Insight and judgment poor. DIAGNOSIS: Paranoid schizophrenia with acute exacerbation. PLAN: Seroquel 200 mg twice a day and 400 mg nightly, Ativan 1 mg every 6 hours p.r.n. anxiety and agitation, Haldol 5 mg twice a day. Twenty minutes of cognitive behavioral therapy to help him identify automatic negative thoughts and help convert negative thoughts to more positive thoughts to reduce depression, anxiety, mood lability. Chart was reviewed. Discussed with staff. Seen and assessed at bedside. Cristina Brandt M.D. DR: Nick JOB#: [id number] CC:
--- NOTE | 2020-03-22 19:48 | NUR ---
HAND-OFF: Report given to JACOB Cartagena.
[2020-03-22 20:00] VITALS: BP 90/60
--- NOTE | 2020-03-22 20:00 | NUR ---
NURSE NOTES: Received patient report from JACOB Arteaga. Patient shows no signs of pain at this time, but he does appear agitated and in a bad mood. AOx1. IV checked and patent. No signs of erythema, infiltration, or bleeding. Bed is in the lowest position, call light within reach, side rails up x 3, bed brakes on. Will continue plan of care.
--- NOTE | 2020-03-22 20:29 | NUR ---
NURSE NOTES: Patient got his Covid test results, he is positive, called Dr. Larsen to inform.
[2020-03-22] MEDS: QUEtiapine 200mg tab ORAL SCH ×2 (21:00→21:14)
[2020-03-22] MEDS: Sennosides 8.6mg tab ORAL SCH ×5 (21:00→23:00)
--- NOTE | 2020-03-22 23:57 | Cardiology Progress Note ---
Assessment/Plan Assessment/Plan 1. Hypotension, resolved, most likely secondary to COVID-19 pneumonia. 2. Confirmed COVID-19 infection. 3. History of COPD. 4. Pancytopenia. Subjective Subjective Sinus rhythm at rate of 75. Objective Last 24 Hour Vital Signs Date Time Temp Pulse Resp B/P (MAP) Pulse Ox O2 Delivery O2 Flow Rate FiO2 03/22/20 16:00 75 03/22/20 16:00 98.1 79 20 115/78 (90) 95 03/22/20 12:00 77 03/22/20 12:00 98.2 77 20 97/61 (73) 93 03/22/20 09:00 Nasal Cannula 2.0 03/22/20 08:00 78 03/22/20 08:00 99.0 79 20 103/68 (80) 92 03/22/20 04:00 78 03/22/20 04:00 97.7 60 20 126/60 (82) 97 03/22/20 00:00 77 03/22/20 00:00 99.0 86 22 104/60 (75) 98 Intake and Output 03/21/20 03/22/20 19:00 07:00 Intake Total 315 ml 858.333 ml Output Total 775 ml 300 ml Balance -460 ml 558.333 ml Intake Oral 240 ml IV Total 75 ml 858.333 ml Output Urine Total 775 ml 300 ml Laboratory Tests Test 03/22/20 03:21 03/22/20 11:45 White Blood Count 3.7 K/UL (4.8-10.8) L 3.7 K/UL (4.8-10.8) L Red Blood Count 3.83 M/UL (4.70-6.10) L 3.58 M/UL (4.70-6.10) L Hemoglobin 11.4 G/DL (14.2-18.0) L 10.6 G/DL (14.2-18.0) L Hematocrit 31.6 % (42.0-52.0) L 29.8 % (42.0-52.0) L Mean Corpuscular Volume 82 FL (80-99) 83 FL (80-99) Mean Corpuscular Hemoglobin 29.6 PG (27.0-31.0) 29.5 PG (27.0-31.0) Mean Corpuscular Hemoglobin Concent 36.0 G/DL (32.0-36.0) 35.5 G/DL (32.0-36.0) Red Cell Distribution Width 10.8 % (11.6-14.8) L 10.8 % (11.6-14.8) L Platelet Count 114 K/UL (150-450) L 116 K/UL (150-450) L Mean Platelet Volume 8.1 FL (6.5-10.1) 7.6 FL (6.5-10.1) Neutrophils (%) (Auto) 72.3 % (45.0-75.0) 71.9 % (45.0-75.0) Lymphocytes (%) (Auto) 18.4 % (20.0-45.0) L 19.4 % (20.0-45.0) L Monocytes (%) (Auto) 6.6 % (1.0-10.0) 6.6 % (1.0-10.0) Eosinophils (%) (Auto) 2.4 % (0.0-3.0) 1.9 % (0.0-3.0) Basophils (%) (Auto) 0.3 % (0.0-2.0) 0.2 % (0.0-2.0) Sodium Level 139 MMOL/L (136-145) 140 MMOL/L (136-145) Potassium Level 3.2 MMOL/L (3.5-5.1) L 3.2 MMOL/L (3.5-5.1) L Chloride Level 105 MMOL/L (98-107) 106 MMOL/L (98-107) Carbon Dioxide Level 30 MMOL/L (21-32) 29 MMOL/L (21-32) Anion Gap 4 mmol/L (5-15) L 6 mmol/L (5-15) Blood Urea Nitrogen 6 mg/dL (7-18) L 9 mg/dL (7-18) Creatinine 0.7 MG/DL (0.55-1.30) 0.5 MG/DL (0.55-1.30) L Estimat Glomerular Filtration Rate > 60 mL/min (>60) > 60 mL/min (>60) Glucose Level 102 MG/DL (74-106) 108 MG/DL (74-106) H Calcium Level 7.8 MG/DL (8.5-10.1) L 7.4 MG/DL (8.5-10.1) L Ferritin 483 NG/ML (8-388) H C-Reactive Protein, Quantitative 9.6 mg/dL (0.00-0.90) H Vancomycin Level Trough 3.1 ug/mL (5.0-12.0) L Hepatitis A IgM Antibody Pending Hepatitis B Surface Antigen Pending Hepatitis B Core IgM Antibody Pending Hepatitis C Antibody Pending HIV (1&2) Antibody Rapid Negative (NEGATIVE) Microbiology Date/Time Source Procedure Growth Status 03/20/20 20:15 Rectum VRE Culture - Final NO VANCOMYCIN RESISTANT ENTEROCOCCUS ... Complete Objective HEENT: Normocephalic and atraumatic. PERRLA, EOMI. NECK: No JVD, no carotid bruit. CARDIOVASCULAR: Normal S1S2, no murmurs, gallops or rubs, regular, rate and rhythm. PULMONARY: Diminished BS, crackles right lung. ABDOMEN: Non-tender, non-distended, + BS EXTREMITIES: No cyanosis, edema or clubbing. Ja Dinh MD March 22, 2020 23:57
[2020-03-23] VITALS: BP 92/58
--- NOTE | 2020-03-23 00:03 | NUR ---
NURSE NOTES: Patient refused blood glucose check and all medication. He was extremely agitated, he continued to use profane language towards me.
[2020-03-23] MEDS: D5NS 1,000 ML IV SCH ×2 (04:31→17:30)
[2020-03-23] MEDS: Vancomycin 750mg/D5W 275ml IVPB SCH ×4 (04:31→09:19)
[2020-03-23] MEDS: Heparin 5000 units/ml inj SUBQ SCH ×3 (06:00→21:12)
[2020-03-23] MEDS: metFORMIN 500mg tab ORAL SCH ×3 (06:28→12:03)
[2020-03-23] MEDS: NovoLOG Insulin Flexpen SUBQ SCH ×4 (06:30→21:00)
--- NOTE | 2020-03-23 06:52 | Hematology/Onc Progress Note ---
Assessment/Plan Assessment/Plan Assessment and Recs # Pancytopenia -- multiple etiologies could be related to underlying liver disease, medication-induced, infection versus viral syndrome versus underlying bone marrow cause, in this case is related to underlying covid19+ --> peripheral smear has been ordered and does not show significant abnormalities --> Medications have been reviewed --> Continue to monitor for improvement, trend cbc --> Hep panel and HIV have been ordered --> US abd ordered to r/o cirrhosis and hepatosplenomegaly --> consider if doesn 't resolve in several days --> reverse isolation if ANC is <2000 --> Give neupogen if ANC <1000 --> Transfuse if hgb <7, with 1 unit prbc --> consider bone marrow biopsy if no other causes are found -> wbc 5-->3-->3.7 # Multifocal pna -- with respiratory distress -- Suspected 2019 novel coronavirus infection --> covid 19+ --> per Dr. Benítez --> per ID, abx cefepime/vanc # COPD (chronic obstructive pulmonary disease) --> breathing rx as needed # Hypotension, most likely secondary to COVID-19 pneumoni --> s/p 1000 ml IV NS with recovery of SBP now at 95 mmHg. --> per Dr. Dinh # Hypokalemia # Dm2 # Schizophrenia # Seizure disorder # [place] resident (Jourdan Bell) The timing of this note does not necessarily reflect the time of the patient was seen. Greatly appreciate consultation. Subjective Cardiovascular: Denies: no symptoms, chest pain, edema, irregular heart rate, lightheadedness, palpitations, syncope, other Respiratory: Denies: no symptoms, cough, shortness of breath, SOB with excertion, SOB at rest, sputum, wheezing, other Genitourinary: Denies: no symptoms, burning, discharge, frequency, flank pain, hematuria, incontinence, pain, urgency, other Neurologic/Psychiatric: Denies: no symptoms, anxiety, depressed, emotional problems, headache, numbness, paresthesia, pre-existing deficit, seizure, tingling, tremors, weakness, other Endocrine: Denies: no symptoms, excessive sweating, flushing, intolerance to cold, intolerance to heat, increased hunger, increased thirst, increased urine, unexplained weight gain, unexplained weight loss, other Allergies: Coded Allergies: No Known Allergies (Unverified , 03/19/20) Subjective 03/23 hypotensive overnight, given ivf, labs reviewed, meds noted, agitated in am , swearing, foul language Objective Objective Current Medications Medications (Trade) Dose Ordered Sig/Deric Route PRN Reason Start Time Stop Time Status Last Admin Dose Admin Acetaminophen (Tylenol) 650 mg Q4H PRN ORAL Temp >100.5 03/20/20 02:45 04/19/20 02:44 03/21/20 02:02 Benztropine Mesylate (Cogentin) 0.5 mg BID ORAL 03/20/20 09:00 04/19/20 08:59 03/22/20 17:07 Cefepime HCl 1 gm/ Dextrose 55 ml @ 110 mls/hr Q24H IVPB 03/20/20 15:00 03/27/20 14:59 03/22/20 14:52 Dextrose (Dextrose 50%) 25 ml Q30M PRN IV Hypoglycemia 03/20/20 01:00 06/18/20 00:59 Dextrose (Dextrose 50%) 50 ml Q30M PRN IV Hypoglycemia 03/20/20 01:00 06/18/20 00:59 Dextrose/Sodium Chloride 1,000 ml @ 75 mls/hr [id number] IV 03/21/20 12:15 04/20/20 12:14 03/23/20 04:31 Diphenhydramine HCl (Benadryl) 50 mg BID ORAL 03/20/20 18:00 04/19/20 17:59 03/22/20 17:07 Docusate Sodium (Colace) 100 mg DAILY ORAL 03/20/20 09:00 04/19/20 08:59 03/21/20 10:01 Gabapentin (Neurontin) 300 mg THREE TIMES A DAY ORAL 03/20/20 09:00 04/19/20 08:59 03/22/20 17:07 Haloperidol (Haldol) 5 mg BID ORAL 03/20/20 18:00 05/04/20 17:59 03/22/20 17:07 Heparin Sodium (Porcine) (Heparin 5000 units/ml) 5,000 units EVERY 8 HOURS SUBQ 03/20/20 14:00 05/04/20 13:59 Insulin Aspart (NovoLOG) BEFORE MEALS AND HS SUBQ 03/20/20 06:30 06/18/20 06:29 Levothyroxine Sodium (Synthroid) 50 mcg DAILY@0630 ORAL 03/20/20 06:30 04/19/20 06:29 03/22/20 05:58 Lorazepam (Ativan) 1 mg Q6H PRN ORAL For Anxiety 03/20/20 16:45 03/27/20 16:44 03/21/20 02:01 Metformin HCl (Glucophage) 500 mg BIDBL ORAL 03/20/20 06:30 04/19/20 06:29 03/22/20 12:34 Quetiapine Fumarate (SEROqueL) 200 mg BID ORAL 03/20/20 18:00 05/04/20 08:59 03/22/20 17:07 Quetiapine Fumarate (SEROqueL) 400 mg QHS ORAL 03/20/20 21:00 05/04/20 20:59 03/22/20 21:14 Sennosides (Senokot) 17.2 mg QHS ORAL 03/22/20 23:00 04/21/20 22:59 Vancomycin HCl (Vanco rx to dose) 1 ea DAILY PRN MISC Per rx protocol 03/20/20 13:00 04/19/20 12:59 Vancomycin HCl 750 mg/Dextrose 275 ml @ 183.333 mls/hr Q8H IVPB 03/22/20 05:00 03/23/20 08:30 03/23/20 04:31 Vancomycin/Sodium Chloride 275 ml @ 183.333 mls/hr Q24H IVPB 03/23/20 09:00 03/28/20 08:59 Last 24 Hour Vital Signs Date Time Temp Pulse Resp B/P (MAP) Pulse Ox O2 Delivery O2 Flow Rate FiO2 03/23/20 04:00 88 03/23/20 00:00 97.4 76 16 92/58 (69) 95 03/23/20 00:00 69 03/22/20 21:00 Nasal Cannula 2.0 03/22/20 20:00 78 03/22/20 20:00 97.7 80 18 90/60 (70) 95 03/22/20 16:00 75 03/22/20 16:00 98.1 79 20 115/78 (90) 95 03/22/20 12:00 77 03/22/20 12:00 98.2 77 20 97/61 (73) 93 03/22/20 09:00 Nasal Cannula 2.0 03/22/20 08:00 78 03/22/20 08:00 99.0 79 20 103/68 (80) 92 03/22/20 04:00 78 03/22/20 04:00 97.7 60 20 126/60 (82) 97 03/22/20 00:00 77 03/22/20 00:00 99.0 86 22 104/60 (75) 98 03/21/20 21:00 Nasal Cannula 2.0 03/21/20 20:00 98.0 65 22 137/58 (84) 95 03/21/20 20:00 71 03/21/20 16:00 97.8 71 22 93/60 (71) 94 03/21/20 16:00 77 03/21/20 12:00 77 03/21/20 11:45 97.5 74 18 106/53 (70) 96 03/21/20 09:00 Nasal Cannula 2.0 03/21/20 08:00 97.5 74 18 78/53 (61) 96 03/21/20 08:00 77 Intake and Output 03/22/20 03/23/20 19:00 07:00 Intake Total 570 ml 360 ml Output Total 400 ml 1000 ml Balance 170 ml -640 ml Intake Oral 120 ml 360 ml IV Total 450 ml Output Urine Total 400 ml 1000 ml # Voids 1 3 Labs Test 03/20/20 14:40 03/21/20 07:45 03/22/20 03:21 03/22/20 11:45 Urine Color Brown Urine Appearance Clear Urine pH 6 (4.5-8.0) Urine Specific [place] 1.020 (1.005-1.035) Urine Protein 2+ (NEGATIVE) Urine Glucose (UA) Negative (NEGATIVE) Urine Ketones Negative (NEGATIVE) Urine Blood Negative (NEGATIVE) Urine Nitrite Negative (NEGATIVE) Urine Bilirubin Negative (NEGATIVE) Urine Urobilinogen 4 MG/DL (0.0-1.0) Urine Leukocyte Esterase 1+ (NEGATIVE) Urine RBC 0-2 /HPF (0 - 0) Urine WBC 2-4 /HPF (0 - 0) Urine Squamous Epithelial Cells None /LPF (NONE/OCC) Urine Amorphous Sediment Few /LPF (NONE) Urine Bacteria Few /HPF (NONE) White Blood Count 3.0 K/UL (4.8-10.8) 3.7 K/UL (4.8-10.8) 3.7 K/UL (4.8-10.8) Red Blood Count 3.67 M/UL (4.70-6.10) 3.83 M/UL (4.70-6.10) 3.58 M/UL (4.70-6.10) Hemoglobin 10.8 G/DL (14.2-18.0) 11.4 G/DL (14.2-18.0) 10.6 G/DL (14.2-18.0) Hematocrit 30.5 % (42.0-52.0) 31.6 % (42.0-52.0) 29.8 % (42.0-52.0) Mean Corpuscular Volume 83 FL (80-99) 82 FL (80-99) 83 FL (80-99) Mean Corpuscular Hemoglobin 29.4 PG (27.0-31.0) 29.6 PG (27.0-31.0) 29.5 PG (27.0-31.0) Mean Corpuscular Hemoglobin Concent 35.3 G/DL (32.0-36.0) 36.0 G/DL (32.0-36.0) 35.5 G/DL (32.0-36.0) Red Cell Distribution Width 10.9 % (11.6-14.8) 10.8 % (11.6-14.8) 10.8 % (11.6-14.8) Platelet Count 105 K/UL (150-450) 114 K/UL (150-450) 116 K/UL (150-450) Mean Platelet Volume 8.7 FL (6.5-10.1) 8.1 FL (6.5-10.1) 7.6 FL (6.5-10.1) Neutrophils (%) (Auto) % (45.0-75.0) 72.3 % (45.0-75.0) 71.9 % (45.0-75.0) Lymphocytes (%) (Auto) % (20.0-45.0) 18.4 % (20.0-45.0) 19.4 % (20.0-45.0) Monocytes (%) (Auto) % (1.0-10.0) 6.6 % (1.0-10.0) 6.6 % (1.0-10.0) Eosinophils (%) (Auto) % (0.0-3.0) 2.4 % (0.0-3.0) 1.9 % (0.0-3.0) Basophils (%) (Auto) % (0.0-2.0) 0.3 % (0.0-2.0) 0.2 % (0.0-2.0) Differential Total Cells Counted 100 Neutrophils % (Manual) 66 % (45-75) Lymphocytes % (Manual) 25 % (20-45) Monocytes % (Manual) 9 % (1-10) Eosinophils % (Manual) 0 % (0-3) Basophils % (Manual) 0 % (0-2) Band Neutrophils 0 % (0-8) Platelet Estimate Decreased Platelet Morphology Normal Red Blood Cell Morphology Normal Sodium Level 140 MMOL/L (136-145) 139 MMOL/L (136-145) 140 MMOL/L (136-145) Potassium Level 3.4 MMOL/L (3.5-5.1) 3.2 MMOL/L (3.5-5.1) 3.2 MMOL/L (3.5-5.1) Chloride Level 106 MMOL/L (98-107) 105 MMOL/L (98-107) 106 MMOL/L (98-107) Carbon Dioxide Level 26 MMOL/L (21-32) 30 MMOL/L (21-32) 29 MMOL/L (21-32) Anion Gap 8 mmol/L (5-15) 4 mmol/L (5-15) 6 mmol/L (5-15) Blood Urea Nitrogen 12 mg/dL (7-18) 6 mg/dL (7-18) 9 mg/dL (7-18) Creatinine 0.8 MG/DL (0.55-1.30) 0.7 MG/DL (0.55-1.30) 0.5 MG/DL (0.55-1.30) Estimat Glomerular Filtration Rate > 60 mL/min (>60) > 60 mL/min (>60) > 60 mL/min (>60) Glucose Level 90 MG/DL (74-106) 102 MG/DL (74-106) 108 MG/DL (74-106) Calcium Level 7.3 MG/DL (8.5-10.1) 7.8 MG/DL (8.5-10.1) 7.4 MG/DL (8.5-10.1) Pro-B-Type Natriuretic Peptide 345 pg/mL (0-125) Ferritin 483 NG/ML (8-388) C-Reactive Protein, Quantitative 9.6 mg/dL (0.00-0.90) Vancomycin Level Trough 3.1 ug/mL (5.0-12.0) HIV (1&2) Antibody Rapid Negative (NEGATIVE) Height (Feet): 5 Height (Inches): 6.00 Weight (Pounds): 111 Objective Vitals: reviewed General: NAD, A+O x1 HEENT: nc, at Neck: supple Chest: clear breath sounds bilaterally Cardiovascular: RRR, no s3, s4 Abdomen: soft, nontender, nd Extremities: no cce, normal range of motion Neuro: confused Andry Culp MD March 23, 2020 06:52
--- NOTE | 2020-03-23 07:50 | NUR ---
NURSE NOTES: Received report from JACOB uDtton. Patient is in bed, appeared dirty, disheveled with angry affect, and feeling very agitated, encouraged to verbalize feelings, patient became aggressive. Patient denies any pain at this time. No s/s of respiratory or acute distress at this time. Patient AAO X2, patient is non-compliance and refusing care and medications. IV is intact, patent and flushed, with fluids running. Patient is on 2L nasal cannula saturating at 95%. Bed in lowest position, brakes engaged for safety, bed rails raised x2. Call light is within reach. Will continue with the plan of care.
--- NOTE | 2020-03-23 07:52 | NUR ---
HAND-OFF: Report given to JACOB Sparks. Patient shows no signs of distress at the time. Endorsed plan of care.
[2020-03-23 08:00] VITALS: BP 126/62
--- NOTE | 2020-03-23 08:00 | NUR ---
ULTRASOUND - Abdominal ultrasound (limited) may be postponed until pt is in recovery per Dr. Culp. Request to inform ultrasound so pt can be scanned prior to discharge.
[2020-03-23] MEDS ORDERED: Vancomycin 1.25gm/NS Premix q24h IVPB SCH (09:00)
[2020-03-23] MEDS: Benztropine 1mg tab ORAL SCH ×2 (09:18→17:28)
[2020-03-23] MEDS: Docusate 100mg cap ORAL SCH (09:18)
--- NOTE | 2020-03-23 09:30 | NUR ---
NURSE NOTES: Patient is increasingly getting agitated, was able to administer morning meds, however, patient refused potline monitor, attempted to place monitor on the patient three times, continues to refuse and threw it on the floor. Explained the risks and benefits, patient refused and non-compliant.
[2020-03-23 12:00] VITALS: BP 126/68
--- NOTE | 2020-03-23 12:47 | General Progress Note ---
Assessment/Plan Problem List: (1) UTI (urinary tract infection) ICD Codes: N39.0 - Urinary tract infection, site not specified SNOMED: 71234884 (2) Diabetes ICD Codes: E11.9 - Type 2 diabetes mellitus without complications SNOMED: 68252843 (3) Seizure ICD Codes: R56.9 - Unspecified convulsions SNOMED: 33305764 (4) Polyneuropathy in diabetes ICD Codes: E11.42 - Type 2 diabetes mellitus with diabetic polyneuropathy SNOMED: 99350746, 25046393 (5) Hypothyroid ICD Codes: E03.9 - Hypothyroidism, unspecified SNOMED: 83712497 (6) Weak ICD Codes: R53.1 - Weakness SNOMED: 83965468 (7) COPD (chronic obstructive pulmonary disease) ICD Codes: J44.9 - Chronic obstructive pulmonary disease, unspecified SNOMED: 97785213 (8) Acute febrile illness ICD Codes: R50.9 - Fever, unspecified SNOMED: 489861589 (9) Suspected 2019 novel coronavirus infection ICD Codes: Z20.828 - Contact with and (suspected) exposure to other viral communicable diseases SNOMED: 805705950 (10) Pancytopenia ICD Codes: D61.818 - Other pancytopenia SNOMED: 646843406 Status: unchanged Assessment/Plan: o2 pulm tx abx pt diet cbc bmp am heme eval aru eval Subjective Constitutional: Reports: weakness Allergies: Coded Allergies: No Known Allergies (Unverified , 03/19/20) All Systems: reviewed and negative except above Subjective o2nc calm Objective Last 24 Hour Vital Signs Date Time Temp Pulse Resp B/P (MAP) Pulse Ox O2 Delivery O2 Flow Rate FiO2 03/23/20 12:00 97.8 92 20 126/68 (87) 98 03/23/20 09:00 Nasal Cannula 2.0 03/23/20 08:00 97.8 80 20 126/62 (83) 98 03/23/20 08:00 66 03/23/20 04:00 88 03/23/20 00:00 97.4 76 16 92/58 (69) 95 03/23/20 00:00 69 03/22/20 21:00 Nasal Cannula 2.0 03/22/20 20:00 78 03/22/20 20:00 97.7 80 18 90/60 (70) 95 03/22/20 16:00 75 03/22/20 16:00 98.1 79 20 115/78 (90) 95 Intake and Output 03/22/20 03/23/20 19:00 07:00 Intake Total 570 ml 360 ml Output Total 400 ml 1000 ml Balance 170 ml -640 ml Intake Oral 120 ml 360 ml IV Total 450 ml Output Urine Total 400 ml 1000 ml # Voids 1 3 Height (Feet): 5 Height (Inches): 6.00 Weight (Pounds): 111 General Appearance: lethargic EENT: normal ENT inspection Neck: normal alignment Cardiovascular: normal rate, regular rhythm Respiratory/Chest: no respiratory distress, no accessory muscle use Extremities: normal inspection Skin: normal pigmentation Ramone Larsen DO March 23, 2020 12:47
--- NOTE | 2020-03-23 14:04 | Infectious Diseases Prog Note ---
Assessment/Plan Assessment/Plan Assessment: Multifocal PNA- 2ry to COVID19 (resident of [place] with large outbreak)- on 2l NC -03/21 CXR: Worsening airspace disease most likely representing pneumonia at the right upper lobe and right lower lobe. Unchanged peripheral patchy airspace opacities at the left base probably also representing pneumonia. -CXR: Patchy right lung opacities suggest multifocal pneumonia. Possible right hilar enlargement versus artifactual prominence due to patient positioning , recommend attention on followup. If there is continued concern, consider CT. Fever; SP Pancytopenia/Lymphocytopenia -u/a neg Hypokalemia COPD Dm2 schizophrenia seizure disorder polyneuropathy hypothyroidism [place] resident (Jourdan Grawn) Plan: -Dc empiric IV Vancomycin #4 -empiric Cefepime #/ -03/19 sp Flagyl x1 -f/u cx -Monitor CBC/CMP, temperatures -COVID19 isolation -aspiration precautions -CXR am Thank you for consulting [facility]. Will continue to follow along with you. Discussed with RN. Subjective Allergies: Coded Allergies: No Known Allergies (Unverified , 03/19/20) Subjective afebrile >72hrs at 2l NC COVID positive Objective Vital Signs Last 24 Hour Vital Signs Date Time Temp Pulse Resp B/P (MAP) Pulse Ox O2 Delivery O2 Flow Rate FiO2 03/23/20 12:00 97.8 92 20 126/68 (87) 98 03/23/20 09:00 Nasal Cannula 2.0 03/23/20 08:00 97.8 80 20 126/62 (83) 98 03/23/20 08:00 66 03/23/20 04:00 88 03/23/20 00:00 97.4 76 16 92/58 (69) 95 03/23/20 00:00 69 03/22/20 21:00 Nasal Cannula 2.0 03/22/20 20:00 78 03/22/20 20:00 97.7 80 18 90/60 (70) 95 03/22/20 16:00 75 03/22/20 16:00 98.1 79 20 115/78 (90) 95 Height (Feet): 5 Height (Inches): 6.00 Weight (Pounds): 111 Objective not examined to limit [id number] exposure Microbiology Date/Time Source Procedure Growth Status 03/21/20 07:53 Blood Blood Culture - Preliminary NO GROWTH AFTER 24 HOURS Resulted 03/21/20 07:45 Blood Blood Culture - Preliminary NO GROWTH AFTER 24 HOURS Resulted 03/20/20 20:15 Rectum VRE Culture - Final NO VANCOMYCIN RESISTANT ENTEROCOCCUS ... Complete Current Medications Medications (Trade) Dose Ordered Sig/Deric Route PRN Reason Start Time Stop Time Status Last Admin Dose Admin Acetaminophen (Tylenol) 650 mg Q4H PRN ORAL Temp >100.5 03/20/20 02:45 04/19/20 02:44 03/21/20 02:02 Benztropine Mesylate (Cogentin) 0.5 mg BID ORAL 03/20/20 09:00 04/19/20 08:59 03/23/20 09:18 Cefepime HCl 1 gm/ Dextrose 55 ml @ 110 mls/hr Q24H IVPB 03/20/20 15:00 03/27/20 14:59 03/22/20 14:52 Dextrose (Dextrose 50%) 25 ml Q30M PRN IV Hypoglycemia 03/20/20 01:00 06/18/20 00:59 Dextrose (Dextrose 50%) 50 ml Q30M PRN IV Hypoglycemia 03/20/20 01:00 06/18/20 00:59 Dextrose/Sodium Chloride 1,000 ml @ 75 mls/hr [id number] IV 03/21/20 12:15 04/20/20 12:14 03/23/20 04:31 Diphenhydramine HCl (Benadryl) 50 mg BID ORAL 03/20/20 18:00 04/19/20 17:59 03/23/20 09:18 Docusate Sodium (Colace) 100 mg DAILY ORAL 03/20/20 09:00 04/19/20 08:59 03/23/20 09:18 Gabapentin (Neurontin) 300 mg THREE TIMES A DAY ORAL 03/20/20 09:00 04/19/20 08:59 03/23/20 09:18 Haloperidol (Haldol) 5 mg BID ORAL 03/20/20 18:00 05/04/20 17:59 03/23/20 09:18 Heparin Sodium (Porcine) (Heparin 5000 units/ml) 5,000 units EVERY 8 HOURS SUBQ 03/20/20 14:00 05/04/20 13:59 Insulin Aspart (NovoLOG) BEFORE MEALS AND HS SUBQ 03/20/20 06:30 06/18/20 06:29 Levothyroxine Sodium (Synthroid) 50 mcg DAILY@0630 ORAL 03/20/20 06:30 04/19/20 06:29 03/22/20 05:58 Lorazepam (Ativan) 1 mg Q6H PRN ORAL For Anxiety 03/20/20 16:45 03/27/20 16:44 03/21/20 02:01 Metformin HCl (Glucophage) 500 mg BIDBL ORAL 03/20/20 06:30 04/19/20 06:29 03/23/20 12:03 Quetiapine Fumarate (SEROqueL) 200 mg BID ORAL 03/23/20 18:00 05/04/20 17:59 Quetiapine Fumarate (SEROqueL) 400 mg QHS ORAL 03/20/20 21:00 05/04/20 20:59 03/22/20 21:14 Sennosides (Senokot) 17.2 mg QHS ORAL 03/22/20 23:00 04/21/20 22:59 Vancomycin HCl (Vanco rx to dose) 1 ea DAILY PRN MISC Per rx protocol 03/20/20 13:00 04/19/20 12:59 Vancomycin/Sodium Chloride 275 ml @ 183.333 mls/hr Q24H IVPB 03/23/20 09:00 03/28/20 08:59 03/23/20 09:20 Sandra Whitney M.D. March 23, 2020 14:04
[2020-03-23] MEDS: Cefepime HCl 1 GM in D5W 55 ML IVPB SCH (14:33)
--- NOTE | 2020-03-23 15:55 | NUR ---
CASE MANAGEMENT: INITIAL REVIEW 74YR OLD MALE BIBA FROM [facility] CC: FEVER; SI:ACUTE FEBRILE ILLNESS; R/O COVID . COPD 101.2 85 31 92/60 98% ON RA D-DIMER 1.0 FERR 484 BNP 162 PLT 125 CA+ 7.4 IS:IV FLAGYL X1 IV CEFEPIME X1 IV NS BOLUS X1 TYLENOL PO X1 CHEST X-RAY- Patchy right lung opacities suggest multifocal pneumonia.Possible right hilar enlargement versus artifactual prominence due to patient positioning, recommend attention on followup. \: 2E TELE UNIT DCP: SNF VS [facility] (NEEDING X2 NEGATIVE COVID) CASE MANAGEMENT: REVIEW 03/23/20 SI:COVID-19 . ACUTE FEBRILE ILLNESS . COPD 97.4 76 16 92/58 95% ON 2L NC IS:IV D5@75ML/HR IV VANCOMYCIN IV CEFEPIME Q24HR NEURONTIN PO TID METFORMIN PO BID COGENTIN PO BID HALDOL PO BID ATIVAN Q6HR/PRN TYLENOL PO Q4HR/PRN \: 2E TELE UNIT DCP: SNF VS [facility] (NEEDING X2 NEGATIVE COVID) PLAN: COVID NEGATIVE TO TRANSFER TO [facility] MONITOR LOW BP
[2020-03-23 16:00] VITALS: BP 114/75
--- NOTE | 2020-03-23 16:19 | Pulmonology Progress Note ---
Assessment/Plan Assessment/Plan IMPRESSION: 1. Right lung pneumonia. 2. [facility] resident. 3. Psych disorder. 4. Hypothyroidism. DISCUSSION: Continue broad-spectrum antibiotics. Continue medications. Continue oxygen and pulmonary hygiene. Currently saturating well on 2L/min O2 Is positive COVID-19. I will follow carefully. Cedric Benítez M.D. Subjective Interval Events: None new Constitutional: Reports: no symptoms HEENT: Repors: no symptoms Respiratory: Reports: no symptoms Cardiovascular: Reports: no symptoms Allergies: Coded Allergies: No Known Allergies (Unverified , 03/19/20) All Systems: reviewed and negative except above Objective Last 24 Hour Vital Signs Date Time Temp Pulse Resp B/P (MAP) Pulse Ox O2 Delivery O2 Flow Rate FiO2 03/23/20 12:00 97.8 92 20 126/68 (87) 98 03/23/20 12:00 78 03/23/20 09:00 Nasal Cannula 2.0 03/23/20 08:00 97.8 80 20 126/62 (83) 98 03/23/20 08:00 66 03/23/20 04:00 88 03/23/20 00:00 97.4 76 16 92/58 (69) 95 03/23/20 00:00 69 03/22/20 21:00 Nasal Cannula 2.0 03/22/20 20:00 78 03/22/20 20:00 97.7 80 18 90/60 (70) 95 Intake and Output 03/22/20 03/23/20 19:00 07:00 Intake Total 570 ml 360 ml Output Total 400 ml 1000 ml Balance 170 ml -640 ml Intake Oral 120 ml 360 ml IV Total 450 ml Output Urine Total 400 ml 1000 ml # Voids 1 3 General Appearance: no acute distress HEENT: normocephalic Respiratory/Chest: chest wall non-tender Cardiovascular: normal peripheral pulses Abdomen: normal bowel sounds Microbiology Date/Time Source Procedure Growth Status 03/21/20 07:53 Blood Blood Culture - Preliminary NO GROWTH AFTER 24 HOURS Resulted 03/21/20 07:45 Blood Blood Culture - Preliminary NO GROWTH AFTER 24 HOURS Resulted 03/20/20 20:15 Rectum VRE Culture - Final NO VANCOMYCIN RESISTANT ENTEROCOCCUS ... Complete Current Medications Medications (Trade) Dose Ordered Sig/Deric Route PRN Reason Start Time Stop Time Status Last Admin Dose Admin Acetaminophen (Tylenol) 650 mg Q4H PRN ORAL Temp >100.5 03/20/20 02:45 04/19/20 02:44 03/21/20 02:02 Benztropine Mesylate (Cogentin) 0.5 mg BID ORAL 03/20/20 09:00 04/19/20 08:59 03/23/20 09:18 Cefepime HCl 1 gm/ Dextrose 55 ml @ 110 mls/hr Q24H IVPB 03/20/20 15:00 03/27/20 14:59 03/23/20 14:33 Dextrose (Dextrose 50%) 25 ml Q30M PRN IV Hypoglycemia 03/20/20 01:00 06/18/20 00:59 Dextrose (Dextrose 50%) 50 ml Q30M PRN IV Hypoglycemia 03/20/20 01:00 06/18/20 00:59 Dextrose/Sodium Chloride 1,000 ml @ 75 mls/hr [id number] IV 03/21/20 12:15 04/20/20 12:14 03/23/20 04:31 Diphenhydramine HCl (Benadryl) 50 mg BID ORAL 03/20/20 18:00 04/19/20 17:59 03/23/20 09:18 Docusate Sodium (Colace) 100 mg DAILY ORAL 03/20/20 09:00 04/19/20 08:59 03/23/20 09:18 Gabapentin (Neurontin) 300 mg THREE TIMES A DAY ORAL 03/20/20 09:00 04/19/20 08:59 03/23/20 14:32 Haloperidol (Haldol) 5 mg BID ORAL 03/20/20 18:00 05/04/20 17:59 03/23/20 09:18 Heparin Sodium (Porcine) (Heparin 5000 units/ml) 5,000 units EVERY 8 HOURS SUBQ 03/20/20 14:00 05/04/20 13:59 03/23/20 14:36 Insulin Aspart (NovoLOG) BEFORE MEALS AND HS SUBQ 03/20/20 06:30 06/18/20 06:29 Levothyroxine Sodium (Synthroid) 50 mcg DAILY@0630 ORAL 03/20/20 06:30 04/19/20 06:29 03/22/20 05:58 Lorazepam (Ativan) 1 mg Q6H PRN ORAL For Anxiety 03/20/20 16:45 03/27/20 16:44 03/21/20 02:01 Metformin HCl (Glucophage) 500 mg BIDBL ORAL 03/20/20 06:30 04/19/20 06:29 03/23/20 12:03 Quetiapine Fumarate (SEROqueL) 200 mg BID ORAL 03/23/20 18:00 05/04/20 17:59 Quetiapine Fumarate (SEROqueL) 400 mg QHS ORAL 03/20/20 21:00 05/04/20 20:59 03/22/20 21:14 Sennosides (Senokot) 17.2 mg QHS ORAL 03/22/20 23:00 04/21/20 22:59 Cedric Benítez MD March 23, 2020 16:19
--- NOTE | 2020-03-23 17:00 | Progress Note ---
DATE: 03/23/2020 SUBJECTIVE: This is a 74-year-old male patient. This is a patient who is very confused, disorganized, mood labile. He has got no logical plan for his own self-care. He has got feelings of hopeless, helpless, low energy, poor appetite, loss of interest in activity. He has COPD, diabetes, urinary tract infection, seizure disorder, rule out COVID-19. He is very irritable and agitated. MENTAL STATUS EXAMINATION: This is a 74-year-old male. Appearance is disheveled. Attitude, irritable and agitated. Affect, guarded and restricted. Intellect, poor. Mood, depressed and anxious. Motor activity, psychomotor agitation. Insight and judgment is poor. DIAGNOSIS: Major depressive disorder, severe, recurrent with psychotic features, rule out paranoid schizophrenia. PLAN: Treat him with Seroquel 200 mg twice a day, 400 mg at bedtime and also Ativan 1 every 6 hours p.r.n. anxiety and agitation, Haldol 5 mg twice a day, also Neurontin 300 mg 3 times a day. Twenty minutes of cognitive behavioral therapy to help him identify his automatic negative thoughts, help him convert his negative thoughts to more positive thoughts to reduce depression, anxiety, and mood lability. Twenty minutes of cognitive behavioral therapy provided. Encouraged him to interact appropriately with staff and other patients. Chart reviewed. Discussed with staff. Seen and assessed at the bedside. Cristina Brandt M.D. DR: FOIR JOB#: [id number] CC:
[2020-03-23] MEDS: QUEtiapine 200mg tab ORAL SCH (17:28)
--- NOTE | 2020-03-23 18:19 | NUR ---
NURSE NOTES: Patient refused Gabapentine at 1800.
--- NOTE | 2020-03-23 19:10 | NUR ---
HAND-OFF: Report given to Marija JAMES. Patient is in stable condition.
--- NOTE | 2020-03-23 19:12 | NUR ---
HAND-OFF: Report given to JACOB Sweet. Patient is in stable condition.
[2020-03-23 20:00] VITALS: BP 98/71
--- NOTE | 2020-03-23 20:06 | NUR ---
NURSE NOTES: Received patient report from JACOB Sparks. Patient shows no signs of distress or pain. AOx1. IV is intact and patent. There are no signs of erythema, bleeding, or infiltration. Bed is in the lowest position, call light is within reach, bed brakes on. Will continue plan of care.
[2020-03-23] MEDS: Sennosides 8.6mg tab ORAL SCH ×2 (20:48→21:00)
--- NOTE | 2020-03-23 21:13 | NUR ---
Patient became agitated when I tried to give him his Senokot. He kept saying they were bugs. Explained they were not but he refused to take them.
--- NOTE | 2020-03-23 23:29 | Cardiology Progress Note ---
Assessment/Plan Assessment/Plan 1. Hypotension, borderline, continue hydration, most likely secondary to COVID- 19 pneumonia. 2. Confirmed COVID-19 infection with B/L pneumonia. 3. History of COPD. 4. Pancytopenia. Subjective Subjective Sinus rhythm at rate of 94. Objective Last 24 Hour Vital Signs Date Time Temp Pulse Resp B/P (MAP) Pulse Ox O2 Delivery O2 Flow Rate FiO2 03/23/20 20:00 97.2 94 18 98/71 (80) 94 03/23/20 16:00 97.8 70 20 114/75 (88) 98 03/23/20 16:00 70 03/23/20 12:00 97.8 92 20 126/68 (87) 98 03/23/20 12:00 78 03/23/20 09:00 Nasal Cannula 2.0 03/23/20 08:00 97.8 80 20 126/62 (83) 98 03/23/20 08:00 66 03/23/20 04:00 88 03/23/20 00:00 97.4 76 16 92/58 (69) 95 03/23/20 00:00 69 Intake and Output 03/22/20 03/23/20 19:00 07:00 Intake Total 570 ml 360 ml Output Total 400 ml 1000 ml Balance 170 ml -640 ml Intake Oral 120 ml 360 ml IV Total 450 ml Output Urine Total 400 ml 1000 ml # Voids 1 3 Microbiology Date/Time Source Procedure Growth Status 03/21/20 07:53 Blood Blood Culture - Preliminary NO GROWTH AFTER 24 HOURS Resulted 03/21/20 07:45 Blood Blood Culture - Preliminary NO GROWTH AFTER 24 HOURS Resulted Objective HEENT: Normocephalic and atraumatic. PERRLA, EOMI. NECK: No JVD, no carotid bruit. CARDIOVASCULAR: Normal S1S2, no murmurs, gallops or rubs, regular, rate and rhythm. PULMONARY: Diminished BS, crackles right lung. ABDOMEN: Non-tender, non-distended, + BS EXTREMITIES: No cyanosis, edema or clubbing. Ja Dinh MD March 23, 2020 23:29
[2020-03-24] VITALS: BP 95/71
[2020-03-24 04:00] VITALS: BP 100/80
[2020-03-24] MEDS: Heparin 5000 units/ml inj SUBQ SCH ×3 (06:00→21:47)
--- NOTE | 2020-03-24 06:15 | Hematology/Onc Progress Note ---
Assessment/Plan Assessment/Plan Assessment and Recs # Pancytopenia -- multiple etiologies could be related to underlying liver disease, medication-induced, infection versus viral syndrome versus underlying bone marrow cause, in this case is related to underlying covid19+ --> peripheral smear has been ordered and does not show significant abnormalities --> Medications have been reviewed --> Continue to monitor for improvement, trend cbc --> Hep panel and HIV have been ordered-->NEG --> US abd ordered to r/o cirrhosis and hepatosplenomegaly --> consider if doesn 't resolve in several days --> reverse isolation if ANC is <2000 --> Give neupogen if ANC <1000 --> Transfuse if hgb <7, with 1 unit prbc --> consider bone marrow biopsy if no other causes are found -> wbc 5-->3-->3.7 # Multifocal pna -- with respiratory distress -- Suspected 2019 novel coronavirus infection --> covid 19+ --> per Dr. Benítez --> per ID, abx cefepime/vanc # COPD (chronic obstructive pulmonary disease) --> breathing rx as needed # Hypotension, most likely secondary to COVID-19 pneumoni --> s/p 1000 ml IV NS with recovery of SBP now at 95 mmHg. --> per Dr. Dinh # Hypokalemia # Dm2 # Schizophrenia # Seizure disorder # [facility] resident (Jourdan Bell) The timing of this note does not necessarily reflect the time of the patient was seen. Greatly appreciate consultation. Subjective HEENT: Denies: no symptoms, eye pain, blurred vision, tearing, double vision, ear pain, ear discharge, nose pain, nose congestion, throat pain, throat swelling, mouth pain, mouth swelling, other Respiratory: Denies: no symptoms, cough, shortness of breath, SOB with excertion, SOB at rest, sputum, wheezing, other Genitourinary: Denies: no symptoms, burning, discharge, frequency, flank pain, hematuria, incontinence, pain, urgency, other Neurologic/Psychiatric: Denies: no symptoms, anxiety, depressed, emotional problems, headache, numbness, paresthesia, pre-existing deficit, seizure, tingling, tremors, weakness, other Endocrine: Denies: no symptoms, excessive sweating, flushing, intolerance to cold, intolerance to heat, increased hunger, increased thirst, increased urine, unexplained weight gain, unexplained weight loss, other Allergies: Coded Allergies: No Known Allergies (Unverified , 03/19/20) Subjective 03/23 hypotensive overnight, given ivf, labs reviewed, meds noted, agitated in am , swearing, foul language 03/24 remains irritable, no bleeding, no f/c, labs noted Objective Objective Current Medications Medications (Trade) Dose Ordered Sig/Deric Route PRN Reason Start Time Stop Time Status Last Admin Dose Admin Acetaminophen (Tylenol) 650 mg Q4H PRN ORAL Temp >100.5 03/20/20 02:45 04/19/20 02:44 03/21/20 02:02 Benztropine Mesylate (Cogentin) 0.5 mg BID ORAL 03/20/20 09:00 04/19/20 08:59 03/23/20 17:28 Cefepime HCl 1 gm/ Dextrose 55 ml @ 110 mls/hr Q24H IVPB 03/20/20 15:00 03/27/20 14:59 03/23/20 14:33 Dextrose (Dextrose 50%) 25 ml Q30M PRN IV Hypoglycemia 03/20/20 01:00 06/18/20 00:59 Dextrose (Dextrose 50%) 50 ml Q30M PRN IV Hypoglycemia 03/20/20 01:00 06/18/20 00:59 Dextrose/Sodium Chloride 1,000 ml @ 75 mls/hr [id number] IV 03/21/20 12:15 04/20/20 12:14 03/23/20 17:30 Diphenhydramine HCl (Benadryl) 50 mg BID ORAL 03/20/20 18:00 04/19/20 17:59 03/23/20 17:29 Docusate Sodium (Colace) 100 mg DAILY ORAL 03/20/20 09:00 04/19/20 08:59 03/23/20 09:18 Gabapentin (Neurontin) 300 mg THREE TIMES A DAY ORAL 03/20/20 09:00 04/19/20 08:59 03/23/20 14:32 Haloperidol (Haldol) 5 mg BID ORAL 03/20/20 18:00 05/04/20 17:59 03/23/20 17:29 Heparin Sodium (Porcine) (Heparin 5000 units/ml) 5,000 units EVERY 8 HOURS SUBQ 03/20/20 14:00 05/04/20 13:59 03/23/20 14:36 Insulin Aspart (NovoLOG) BEFORE MEALS AND HS SUBQ 03/20/20 06:30 06/18/20 06:29 Levothyroxine Sodium (Synthroid) 50 mcg DAILY@0630 ORAL 03/20/20 06:30 04/19/20 06:29 03/22/20 05:58 Lorazepam (Ativan) 1 mg Q6H PRN ORAL For Anxiety 03/20/20 16:45 03/27/20 16:44 03/21/20 02:01 Metformin HCl (Glucophage) 500 mg BIDBL ORAL 03/20/20 06:30 04/19/20 06:29 03/23/20 12:03 Quetiapine Fumarate (SEROqueL) 200 mg BID ORAL 03/23/20 18:00 05/04/20 17:59 03/23/20 17:28 Quetiapine Fumarate (SEROqueL) 400 mg QHS ORAL 03/20/20 21:00 05/04/20 20:59 03/22/20 21:14 Sennosides (Senokot) 17.2 mg QHS ORAL 03/22/20 23:00 04/21/20 22:59 Last 24 Hour Vital Signs Date Time Temp Pulse Resp B/P (MAP) Pulse Ox O2 Delivery O2 Flow Rate FiO2 03/24/20 04:00 98.0 83 18 100/80 (87) 95 03/24/20 00:00 76 03/24/20 00:00 98.1 89 18 95/71 (79) 94 03/23/20 21:00 Nasal Cannula 2.0 03/23/20 20:00 97.2 94 18 98/71 (80) 94 03/23/20 16:00 97.8 70 20 114/75 (88) 98 03/23/20 16:00 70 03/23/20 12:00 97.8 92 20 126/68 (87) 98 03/23/20 12:00 78 03/23/20 09:00 Nasal Cannula 2.0 03/23/20 08:00 97.8 80 20 126/62 (83) 98 03/23/20 08:00 66 03/23/20 04:00 88 03/23/20 00:00 97.4 76 16 92/58 (69) 95 03/23/20 00:00 69 03/22/20 21:00 Nasal Cannula 2.0 03/22/20 20:00 78 03/22/20 20:00 97.7 80 18 90/60 (70) 95 03/22/20 16:00 75 03/22/20 16:00 98.1 79 20 115/78 (90) 95 03/22/20 12:00 77 03/22/20 12:00 98.2 77 20 97/61 (73) 93 03/22/20 09:00 Nasal Cannula 2.0 03/22/20 08:00 78 03/22/20 08:00 99.0 79 20 103/68 (80) 92 Intake and Output 03/23/20 03/24/20 19:00 07:00 Intake Total 324 ml Output Total 1000 ml Balance -676 ml Intake Oral 324 ml Output Urine Total 1000 ml # Voids 4 2 Labs Test 03/21/20 07:45 03/22/20 03:21 03/22/20 11:45 White Blood Count 3.0 K/UL (4.8-10.8) 3.7 K/UL (4.8-10.8) 3.7 K/UL (4.8-10.8) Red Blood Count 3.67 M/UL (4.70-6.10) 3.83 M/UL (4.70-6.10) 3.58 M/UL (4.70-6.10) Hemoglobin 10.8 G/DL (14.2-18.0) 11.4 G/DL (14.2-18.0) 10.6 G/DL (14.2-18.0) Hematocrit 30.5 % (42.0-52.0) 31.6 % (42.0-52.0) 29.8 % (42.0-52.0) Mean Corpuscular Volume 83 FL (80-99) 82 FL (80-99) 83 FL (80-99) Mean Corpuscular Hemoglobin 29.4 PG (27.0-31.0) 29.6 PG (27.0-31.0) 29.5 PG (27.0-31.0) Mean Corpuscular Hemoglobin Concent 35.3 G/DL (32.0-36.0) 36.0 G/DL (32.0-36.0) 35.5 G/DL (32.0-36.0) Red Cell Distribution Width 10.9 % (11.6-14.8) 10.8 % (11.6-14.8) 10.8 % (11.6-14.8) Platelet Count 105 K/UL (150-450) 114 K/UL (150-450) 116 K/UL (150-450) Mean Platelet Volume 8.7 FL (6.5-10.1) 8.1 FL (6.5-10.1) 7.6 FL (6.5-10.1) Neutrophils (%) (Auto) % (45.0-75.0) 72.3 % (45.0-75.0) 71.9 % (45.0-75.0) Lymphocytes (%) (Auto) % (20.0-45.0) 18.4 % (20.0-45.0) 19.4 % (20.0-45.0) Monocytes (%) (Auto) % (1.0-10.0) 6.6 % (1.0-10.0) 6.6 % (1.0-10.0) Eosinophils (%) (Auto) % (0.0-3.0) 2.4 % (0.0-3.0) 1.9 % (0.0-3.0) Basophils (%) (Auto) % (0.0-2.0) 0.3 % (0.0-2.0) 0.2 % (0.0-2.0) Differential Total Cells Counted 100 Neutrophils % (Manual) 66 % (45-75) Lymphocytes % (Manual) 25 % (20-45) Monocytes % (Manual) 9 % (1-10) Eosinophils % (Manual) 0 % (0-3) Basophils % (Manual) 0 % (0-2) Band Neutrophils 0 % (0-8) Platelet Estimate Decreased Platelet Morphology Normal Red Blood Cell Morphology Normal Sodium Level 140 MMOL/L (136-145) 139 MMOL/L (136-145) 140 MMOL/L (136-145) Potassium Level 3.4 MMOL/L (3.5-5.1) 3.2 MMOL/L (3.5-5.1) 3.2 MMOL/L (3.5-5.1) Chloride Level 106 MMOL/L (98-107) 105 MMOL/L (98-107) 106 MMOL/L (98-107) Carbon Dioxide Level 26 MMOL/L (21-32) 30 MMOL/L (21-32) 29 MMOL/L (21-32) Anion Gap 8 mmol/L (5-15) 4 mmol/L (5-15) 6 mmol/L (5-15) Blood Urea Nitrogen 12 mg/dL (7-18) 6 mg/dL (7-18) 9 mg/dL (7-18) Creatinine 0.8 MG/DL (0.55-1.30) 0.7 MG/DL (0.55-1.30) 0.5 MG/DL (0.55-1.30) Estimat Glomerular Filtration Rate > 60 mL/min (>60) > 60 mL/min (>60) > 60 mL/min (>60) Glucose Level 90 MG/DL (74-106) 102 MG/DL (74-106) 108 MG/DL (74-106) Calcium Level 7.3 MG/DL (8.5-10.1) 7.8 MG/DL (8.5-10.1) 7.4 MG/DL (8.5-10.1) Pro-B-Type Natriuretic Peptide 345 pg/mL (0-125) Ferritin 483 NG/ML (8-388) C-Reactive Protein, Quantitative 9.6 mg/dL (0.00-0.90) Vancomycin Level Trough 3.1 ug/mL (5.0-12.0) Hepatitis A IgM Antibody Negative (Negative) Hepatitis B Surface Antigen Negative (Negative) Hepatitis B Core IgM Antibody Negative (Negative) Hepatitis C Antibody <0.1 s/co ratio HIV (1&2) Antibody Rapid Negative (NEGATIVE) Height (Feet): 5 Height (Inches): 6.00 Weight (Pounds): 111 Objective Vitals: reviewed General: NAD, A+O x1 HEENT: nc, at Neck: supple Chest: clear breath sounds bilaterally Cardiovascular: RRR, no s3, s4 Abdomen: soft, nontender, nd Extremities: no cce, normal range of motion Neuro: confused Andry Culp MD March 24, 2020 06:15
[2020-03-24] MEDS: metFORMIN 500mg tab ORAL SCH ×2 (06:30→12:03)
[2020-03-24] MEDS: NovoLOG Insulin Flexpen SUBQ SCH ×4 (06:30→21:00)
--- NOTE | 2020-03-24 07:40 | NUR ---
NURSE NOTES: Received report from JACOB Dutton. Patient is in bed restless and agitated, encouraged to verbalize feelings, patient became aggressive. Patient denies any pain at this time. No s/s of respiratory or acute distress at this time. Patient AAO X2, patient is non-compliance and refusing care and medications. IV is intact, patent and flushed, with fluids running. Patient is on 2L nasal cannula saturating at 95%. Bed in lowest position, brakes engaged for safety, bed rails raised x2. Call light is within reach. Will continue with the plan of care.
[2020-03-24 08:00] VITALS: BP_SYST 104; BP_SYST 109; BP_DIAS 60; BP_DIAS 69
[2020-03-24] MEDS: D5NS 1,000 ML IV SCH ×2 (08:01→20:15)
[2020-03-24 08:09] LABS: HEMATOCRIT 29.9 % (42.0-52.0); HEMOGLOBIN 10.6 G/DL (14.2-18.0); MEAN CORPUSCULAR VOLUME 82 FL (80-99); PLATELET COUNT 176 K/UL (150-450); RED BLOOD COUNT 3.64 M/UL (4.70-6.10); RED CELL DISTRIBUTION WIDTH 10.9 % (11.6-14.8); WHITE BLOOD COUNT 3.9 K/UL (4.8-10.8)
--- NOTE | 2020-03-24 08:10 | NUR ---
HAND-OFF: Report given to JACOB Sparks. Patient shows no signs of distress at the tiome. Endorsed plan of care.
[2020-03-24 08:24] LABS: ANION GAP 7 mmol/L (5-15); BLOOD UREA NITROGEN 6 mg/dL (7-18); CALCIUM 8.1 MG/DL (8.5-10.1); CARBON DIOXIDE 27 MMOL/L (21-32); CHLORIDE 111 MMOL/L (98-107); CREATININE 0.6 MG/DL (0.55-1.30); FERRITIN 395 NG/ML (8-388); POTASSIUM 3.6 MMOL/L (3.5-5.1); SODIUM 145 MMOL/L (136-145)
[2020-03-24] MEDS: Benztropine 1mg tab ORAL SCH ×2 (08:39→17:13)
[2020-03-24] MEDS: Docusate 100mg cap ORAL SCH (08:40)
[2020-03-24] MEDS: QUEtiapine 200mg tab ORAL SCH ×3 (08:40→22:04)
--- NOTE | 2020-03-24 09:13 | General Progress Note ---
Assessment/Plan Problem List: (1) UTI (urinary tract infection) ICD Codes: N39.0 - Urinary tract infection, site not specified SNOMED: 42288191 (2) Diabetes ICD Codes: E11.9 - Type 2 diabetes mellitus without complications SNOMED: 81060908 (3) Seizure ICD Codes: R56.9 - Unspecified convulsions SNOMED: 59633273 (4) Polyneuropathy in diabetes ICD Codes: E11.42 - Type 2 diabetes mellitus with diabetic polyneuropathy SNOMED: 85771056, 24056676 (5) Hypothyroid ICD Codes: E03.9 - Hypothyroidism, unspecified SNOMED: 01125281 (6) Weak ICD Codes: R53.1 - Weakness SNOMED: 04316305 (7) COPD (chronic obstructive pulmonary disease) ICD Codes: J44.9 - Chronic obstructive pulmonary disease, unspecified SNOMED: 14259121 (8) Acute febrile illness ICD Codes: R50.9 - Fever, unspecified SNOMED: 584629141 (9) Suspected 2019 novel coronavirus infection ICD Codes: Z20.828 - Contact with and (suspected) exposure to other viral communicable diseases SNOMED: 853061584 (10) Pancytopenia ICD Codes: D61.818 - Other pancytopenia SNOMED: 647229374 Status: unchanged Assessment/Plan: o2 pulm tx abx pt diet cbc bmp am heme eval aru eval Subjective Constitutional: Reports: weakness Allergies: Coded Allergies: No Known Allergies (Unverified , 03/19/20) All Systems: reviewed and negative except above Subjective o2nc calm Objective Last 24 Hour Vital Signs Date Time Temp Pulse Resp B/P (MAP) Pulse Ox O2 Delivery O2 Flow Rate FiO2 03/24/20 08:00 97.1 72 19 104/60 (75) 97 72 03/24/20 04:00 98.0 83 18 100/80 (87) 95 03/24/20 04:00 66 03/24/20 00:00 76 03/24/20 00:00 98.1 89 18 95/71 (79) 94 03/23/20 21:00 Nasal Cannula 2.0 03/23/20 20:00 97.2 94 18 98/71 (80) 94 03/23/20 16:00 97.8 70 20 114/75 (88) 98 03/23/20 16:00 70 5/5/20 12:00 97.8 92 20 126/68 (87) 98 03/23/20 12:00 78 Intake and Output 03/23/20 03/24/20 19:00 07:00 Intake Total 324 ml Output Total 1000 ml Balance -676 ml Intake Oral 324 ml Output Urine Total 1000 ml # Voids 4 2 Laboratory Tests 03/24/20 06:46: White Blood Count 3.9L, Red Blood Count 3.64L, Hemoglobin 10.6L, Hematocrit 29.9L, Mean Corpuscular Volume 82, Mean Corpuscular Hemoglobin 29.3, Mean Corpuscular Hemoglobin Concent 35.5, Red Cell Distribution Width 10.9L, Platelet Count 176, Mean Platelet Volume 6.5, Neutrophils (%) (Auto) , Lymphocytes (%) (Auto) , Monocytes (%) (Auto) , Eosinophils (%) (Auto) , Basophils (%) (Auto) , Neutrophils % (Manual) [Pending], Lymphocytes % (Manual) [Pending], Platelet Estimate [Pending], Platelet Morphology [Pending], Sodium Level 145, Potassium Level 3.6, Chloride Level 111H, Carbon Dioxide Level 27, Anion Gap 7, Blood Urea Nitrogen 6L, Creatinine 0.6, Estimat Glomerular Filtration Rate > 60, Glucose Level 94, Calcium Level 8.1L, Ferritin 395H, C- Reactive Protein, Quantitative 5.8H Height (Feet): 5 Height (Inches): 6.00 Weight (Pounds): 111 General Appearance: lethargic EENT: normal ENT inspection Neck: normal alignment Cardiovascular: normal rate, regular rhythm Respiratory/Chest: no respiratory distress, no accessory muscle use Extremities: normal inspection Ramone Larsen DO March 24, 2020 09:13
--- NOTE | 2020-03-24 10:23 | Diagnostic Imaging Report ---
Indication: Shortness of breath Technique: One view of the chest Comparison: 03/21/2020 Findings: Patient is rotated to the right. Allowing for differences in positioning, infiltrates throughout the right lung are probably unchanged. Patchy left lateral basilar infiltrate is also unchanged. The heart size is normal. The aorta is tortuous ectatic and calcified. Impression: Unchanged, over 3 days, findings as above.
--- NOTE | 2020-03-24 10:35 | Pulmonology Progress Note ---
Assessment/Plan Assessment/Plan IMPRESSION: 1. Right lung pneumonia. 2. [facility] resident. 3. Psych disorder. 4. Hypothyroidism. DISCUSSION: Continue broad-spectrum antibiotics. Continue medications. Continue oxygen and pulmonary hygiene. Currently saturating well on 2L/min O2 Is positive COVID-19. I will follow carefully. Cedric Benítez M.D. Subjective Interval Events: None new Constitutional: Reports: no symptoms HEENT: Repors: no symptoms Respiratory: Reports: no symptoms Cardiovascular: Reports: no symptoms Allergies: Coded Allergies: No Known Allergies (Unverified , 03/19/20) All Systems: reviewed and negative except above Objective Last 24 Hour Vital Signs Date Time Temp Pulse Resp B/P (MAP) Pulse Ox O2 Delivery O2 Flow Rate FiO2 03/24/20 09:00 Nasal Cannula 2.0 03/24/20 08:00 97.1 72 19 104/60 (75) 97 72 03/24/20 08:00 97.1 69 19 109/69 (82) 97 03/24/20 08:00 69 03/24/20 04:00 98.0 83 18 100/80 (87) 95 03/24/20 04:00 66 03/24/20 00:00 76 03/24/20 00:00 98.1 89 18 95/71 (79) 94 03/23/20 21:00 Nasal Cannula 2.0 03/23/20 20:00 97.2 94 18 98/71 (80) 94 03/23/20 16:00 97.8 70 20 114/75 (88) 98 03/23/20 16:00 70 03/23/20 12:00 97.8 92 20 126/68 (87) 98 03/23/20 12:00 78 Intake and Output 03/23/20 03/24/20 19:00 07:00 Intake Total 324 ml Output Total 1000 ml Balance -676 ml Intake Oral 324 ml Output Urine Total 1000 ml # Voids 4 2 General Appearance: no acute distress HEENT: normocephalic Respiratory/Chest: chest wall non-tender Cardiovascular: normal peripheral pulses Abdomen: normal bowel sounds Laboratory Tests 03/24/20 06:46: White Blood Count 3.9L, Red Blood Count 3.64L, Hemoglobin 10.6L, Hematocrit 29.9L, Mean Corpuscular Volume 82, Mean Corpuscular Hemoglobin 29.3, Mean Corpuscular Hemoglobin Concent 35.5, Red Cell Distribution Width 10.9L, Platelet Count 176, Mean Platelet Volume 6.5, Neutrophils (%) (Auto) , Lymphocytes (%) (Auto) , Monocytes (%) (Auto) , Eosinophils (%) (Auto) , Basophils (%) (Auto) , Differential Total Cells Counted 100, Neutrophils % ( Manual) 68, Lymphocytes % (Manual) 22, Monocytes % (Manual) 7, Eosinophils % ( Manual) 3, Basophils % (Manual) 0, Band Neutrophils 0, Platelet Estimate Adequate, Platelet Morphology Normal, Red Blood Cell Morphology Normal, Sodium Level 145, Potassium Level 3.6, Chloride Level 111H, Carbon Dioxide Level 27, Anion Gap 7, Blood Urea Nitrogen 6L, Creatinine 0.6, Estimat Glomerular Filtration Rate > 60, Glucose Level 94, Calcium Level 8.1L, Ferritin 395H, C- Reactive Protein, Quantitative 5.8H Current Medications Medications (Trade) Dose Ordered Sig/Deric Route PRN Reason Start Time Stop Time Status Last Admin Dose Admin Acetaminophen (Tylenol) 650 mg Q4H PRN ORAL Temp >100.5 03/20/20 02:45 04/19/20 02:44 03/21/20 02:02 Benztropine Mesylate (Cogentin) 0.5 mg BID ORAL 03/20/20 09:00 04/19/20 08:59 03/24/20 08:39 Cefepime HCl 1 gm/ Dextrose 55 ml @ 110 mls/hr Q24H IVPB 03/20/20 15:00 03/27/20 14:59 03/23/20 14:33 Dextrose (Dextrose 50%) 25 ml Q30M PRN IV Hypoglycemia 03/20/20 01:00 06/18/20 00:59 Dextrose (Dextrose 50%) 50 ml Q30M PRN IV Hypoglycemia 03/20/20 01:00 06/18/20 00:59 Dextrose/Sodium Chloride 1,000 ml @ 75 mls/hr [id number] IV 03/21/20 12:15 04/20/20 12:14 03/24/20 08:01 Diphenhydramine HCl (Benadryl) 50 mg BID ORAL 03/20/20 18:00 04/19/20 17:59 03/24/20 08:40 Docusate Sodium (Colace) 100 mg DAILY ORAL 03/20/20 09:00 04/19/20 08:59 03/24/20 08:40 Gabapentin (Neurontin) 300 mg THREE TIMES A DAY ORAL 03/20/20 09:00 04/19/20 08:59 03/24/20 08:40 Haloperidol (Haldol) 5 mg BID ORAL 03/20/20 18:00 05/04/20 17:59 03/24/20 08:40 Heparin Sodium (Porcine) (Heparin 5000 units/ml) 5,000 units EVERY 8 HOURS SUBQ 03/20/20 14:00 05/04/20 13:59 03/23/20 14:36 Insulin Aspart (NovoLOG) BEFORE MEALS AND HS SUBQ 03/20/20 06:30 06/18/20 06:29 Levothyroxine Sodium (Synthroid) 50 mcg DAILY@0630 ORAL 03/20/20 06:30 04/19/20 06:29 03/24/20 06:30 Lorazepam (Ativan) 1 mg Q6H PRN ORAL For Anxiety 03/20/20 16:45 03/27/20 16:44 03/21/20 02:01 Metformin HCl (Glucophage) 500 mg BIDBL ORAL 03/20/20 06:30 04/19/20 06:29 03/24/20 06:30 Quetiapine Fumarate (SEROqueL) 200 mg BID ORAL 03/23/20 18:00 05/04/20 17:59 03/24/20 08:40 Quetiapine Fumarate (SEROqueL) 400 mg QHS ORAL 03/20/20 21:00 05/04/20 20:59 03/22/20 21:14 Sennosides (Senokot) 17.2 mg QHS ORAL 03/22/20 23:00 04/21/20 22:59 Cedric Benítez MD March 24, 2020 10:35
[2020-03-24 12:00] VITALS: BP 117/77
[2020-03-24] MEDS: Cefepime HCl 1 GM in D5W 55 ML IVPB SCH (14:03)
[2020-03-24 16:00] VITALS: BP 103/73
--- NOTE | 2020-03-24 19:15 | Progress Note ---
DATE: 03/24/2020 SUBJECTIVE: This is a 74-year-old male patient. This patient is still confused, disorganized. He has got no logical plan for his own self-care. rule out COVID-19 infection. He has got some confusion, some disorganized thought process, decline in cognition below his baseline. He is very agitated, irritable, extremely mood labile. DIAGNOSIS: Paranoid schizophrenia acute exacerbation. PLAN: Treat him with Seroquel 200 mg twice a day, 400 mg at bedtime, Ativan 1 every 6 hours p.r.n. anxiety and agitation, Haldol 5 twice a day, Neurontin 300 mg 3 times a day. Twenty minutes of cognitive behavioral therapy to help him identify his automatic negative thoughts and help to convert his negative thoughts to more positive thoughts to reduce depression, anxiety, mood lability. Chart reviewed. Discussed with staff. Seen and assessed in his room. Cristina Brandt M.D. DR: FIOR JOB#: [id number] CC:
--- NOTE | 2020-03-24 19:36 | NUR ---
HAND-OFF: Report given to Debbie JAMES. Patient is in stable condition.
--- NOTE | 2020-03-24 19:50 | NUR ---
NURSE NOTES: Received pt from JACOB Sparks. Pt awake, alert, and walking around. Bed in lowest position. Call light within reach. Will continue to monitor.
[2020-03-24 20:00] VITALS: BP 112/73
[2020-03-24] MEDS: Sennosides 8.6mg tab ORAL SCH (21:00)
--- NOTE | 2020-03-24 23:09 | Cardiology Progress Note ---
Assessment/Plan Assessment/Plan 1. Hypotension, borderline, continue hydration, most likely secondary to COVID- 19 pneumonia. 2. Confirmed COVID-19 infection with B/L pneumonia. 3. History of COPD. 4. Pancytopenia. Subjective Subjective Sinus rhythm at rate of 94. Objective Last 24 Hour Vital Signs Date Time Temp Pulse Resp B/P (MAP) Pulse Ox O2 Delivery O2 Flow Rate FiO2 03/24/20 16:00 98.7 86 18 103/73 (83) 95 03/24/20 16:00 94 03/24/20 12:00 109 03/24/20 12:00 98.6 109 18 117/77 (90) 96 03/24/20 09:00 Nasal Cannula 2.0 03/24/20 08:00 97.1 72 19 104/60 (75) 97 72 03/24/20 08:00 97.1 69 19 109/69 (82) 97 03/24/20 08:00 69 03/24/20 04:00 98.0 83 18 100/80 (87) 95 03/24/20 04:00 66 03/24/20 00:00 76 03/24/20 00:00 98.1 89 18 95/71 (79) 94 Intake and Output 03/23/20 03/24/20 19:00 07:00 Intake Total 324 ml Output Total 1000 ml Balance -676 ml Intake Oral 324 ml Output Urine Total 1000 ml # Voids 4 2 Laboratory Tests Test 03/24/20 06:46 White Blood Count 3.9 K/UL (4.8-10.8) L Red Blood Count 3.64 M/UL (4.70-6.10) L Hemoglobin 10.6 G/DL (14.2-18.0) L Hematocrit 29.9 % (42.0-52.0) L Mean Corpuscular Volume 82 FL (80-99) Mean Corpuscular Hemoglobin 29.3 PG (27.0-31.0) Mean Corpuscular Hemoglobin Concent 35.5 G/DL (32.0-36.0) Red Cell Distribution Width 10.9 % (11.6-14.8) L Platelet Count 176 K/UL (150-450) Mean Platelet Volume 6.5 FL (6.5-10.1) Neutrophils (%) (Auto) % (45.0-75.0) Lymphocytes (%) (Auto) % (20.0-45.0) Monocytes (%) (Auto) % (1.0-10.0) Eosinophils (%) (Auto) % (0.0-3.0) Basophils (%) (Auto) % (0.0-2.0) Differential Total Cells Counted 100 Neutrophils % (Manual) 68 % (45-75) Lymphocytes % (Manual) 22 % (20-45) Monocytes % (Manual) 7 % (1-10) Eosinophils % (Manual) 3 % (0-3) Basophils % (Manual) 0 % (0-2) Band Neutrophils 0 % (0-8) Platelet Estimate Adequate Platelet Morphology Normal Red Blood Cell Morphology Normal Sodium Level 145 MMOL/L (136-145) Potassium Level 3.6 MMOL/L (3.5-5.1) Chloride Level 111 MMOL/L (98-107) H Carbon Dioxide Level 27 MMOL/L (21-32) Anion Gap 7 mmol/L (5-15) Blood Urea Nitrogen 6 mg/dL (7-18) L Creatinine 0.6 MG/DL (0.55-1.30) Estimat Glomerular Filtration Rate > 60 mL/min (>60) Glucose Level 94 MG/DL (74-106) Calcium Level 8.1 MG/DL (8.5-10.1) L Ferritin 395 NG/ML (8-388) H C-Reactive Protein, Quantitative 5.8 mg/dL (0.00-0.90) H Objective HEENT: Normocephalic and atraumatic. PERRLA, EOMI. NECK: No JVD, no carotid bruit. CARDIOVASCULAR: Normal S1S2, no murmurs, gallops or rubs, regular, rate and rhythm. PULMONARY: Diminished BS, crackles right lung. ABDOMEN: Non-tender, non-distended, + BS EXTREMITIES: No cyanosis, edema or clubbing. Ja Dinh MD March 24, 2020 23:09
[2020-03-25] VITALS: BP 115/65
[2020-03-25 04:00] VITALS: BP 111/80
[2020-03-25] MEDS: metFORMIN 500mg tab ORAL SCH ×2 (05:41→11:30)
[2020-03-25] MEDS: Heparin 5000 units/ml inj SUBQ SCH ×3 (06:00→22:00)
[2020-03-25] MEDS: NovoLOG Insulin Flexpen SUBQ SCH ×4 (06:03→21:00)
--- NOTE | 2020-03-25 07:30 | Progress Note ---
DATE: 03/24/2020 NOTE: POOR AUDIO. PSYCHOTHERAPY CONSULTATION PROGRESS NOTE TREATING ATTENDING PHYSICIAN: Ramone Larsen D.O. HISTORY OF PRESENT ILLNESS: . The patient was monitored. The patient is a 74-year-old male patient. He has been initially admitted to the hospital for acute mental illness, rule out possible COVID-19. The patient has been very agitated and irritable, disease. He was also referred to psychotherapeutic services. When I saw this patient, the patient confused 01:00 asking for anything . At this time, there is no . The patient at this time denies suicidal or homicidal thoughts of ideation. Denies auditory hallucinations. . PAST MEDICAL HISTORY: Includes history of bronchitis, pneumonia, and COPD. ALLERGIES: The patient has no known drug allergies. SUBSTANCE ABUSE HISTORY: The patient denies history of alcohol use, illicit substance use, or smoking cigarettes. PSYCHIATRIC HISTORY: The patient does have a history of paranoid schizophrenia and has been treated with psychotropic medications in the past. SOCIAL HISTORY: The patient is a 74-year-old male patient from [facility]. Financially sustained through [facility]. MENTAL STATUS EXAMINATION: The patient is alert and oriented to person and place. Mood is anxious. Affect is labile. Thought process is disorganized. Thought content, the patient has poor attention and concentration. Poor insight, judgment, impulse control. DIAGNOSES: 1. Paranoid schizophrenia. 2. COPD. 3. Psychosocial stressors, moderate. 4. . I assessed this patient and provided him with, 1. Reality orientation, which is focused on improving cognitive level of function, as the patient is very confused and disorganized, oriented to person, place, time, and situation. 2. I provided him with supportive psychotherapy, encouraging the patient to communicate and articulate his thoughts utilizing positive communication skills because he is extremely anxious and labile, redirecting his feelings of agitation, irritability, and restlessness positive coping skills . PLAN: Plan is to maintain medication compliance with use of positive coping skills to stabilize thoughts and behaviors. Psychotherapy for this patient is 45 minutes. This clinician has reviewed the patient's chart and discussed the treatment with treatment team. Nadine Haywood PsyD. DR: Mina JOB#: [id number] CC:
[2020-03-25 07:43] LABS: BASOPHILS % (AUTO) 0.8 % (0.0-2.0); EOSINOPHILS % (AUTO) 4.2 % (0.0-3.0); HEMATOCRIT 31.1 % (42.0-52.0); HEMOGLOBIN 11.1 G/DL (14.2-18.0); LYMPHOCYTES % (AUTO) 27.5 % (20.0-45.0); MEAN CORPUSCULAR VOLUME 83 FL (80-99); NEUTROPHILS % (AUTO) 61.5 % (45.0-75.0); PLATELET COUNT 201 K/UL (150-450); RED BLOOD COUNT 3.75 M/UL (4.70-6.10); WHITE BLOOD COUNT 4.6 K/UL (4.8-10.8)
--- NOTE | 2020-03-25 07:56 | NUR ---
HAND-OFF: Report given to JACOB Mccain. Pt stable.
--- NOTE | 2020-03-25 07:57 | NUR ---
NURSE NOTES: Received patient in bed awake. No SOB or acute distress. Removing nasal cannula. HOB elevated. Bed locked in lowest position. Call light within reach. Will continue plan of care.
[2020-03-25 08:00] VITALS: BP 113/77
[2020-03-25 08:11] LABS: ANION GAP 8 mmol/L (5-15); BLOOD UREA NITROGEN 10 mg/dL (7-18); CALCIUM 8.4 MG/DL (8.5-10.1); CARBON DIOXIDE 28 MMOL/L (21-32); CHLORIDE 111 MMOL/L (98-107); CREATININE 0.7 MG/DL (0.55-1.30); POTASSIUM 3.7 MMOL/L (3.5-5.1); SODIUM 147 MMOL/L (136-145)
--- NOTE | 2020-03-25 08:48 | Hematology/Onc Progress Note ---
Assessment/Plan Assessment/Plan Assessment and Recs # Pancytopenia -- multiple etiologies could be related to underlying liver disease, medication-induced, infection versus viral syndrome versus underlying bone marrow cause, in this case is related to underlying covid19+ --> peripheral smear has been ordered and does not show significant abnormalities --> Medications have been reviewed --> Continue to monitor for improvement, trend cbc --> Hep panel and HIV have been ordered-->NEG --> US abd ordered to r/o cirrhosis and hepatosplenomegaly --> consider if doesn 't resolve in several days --> reverse isolation if ANC is <2000 --> Give neupogen if ANC <1000 --> Transfuse if hgb <7, with 1 unit prbc --> consider bone marrow biopsy if no other causes are found -> wbc 5-->3-->3.7 # Multifocal pna -- with respiratory distress -- Suspected 2019 novel coronavirus infection --> covid 19+ --> per Dr. Benítez --> per ID, abx cefepime/vanc # COPD (chronic obstructive pulmonary disease) --> breathing rx as needed # Hypotension, most likely secondary to COVID-19 pneumoni --> s/p 1000 ml IV NS with recovery of SBP now at 95 mmHg. --> per Dr. Dinh # Hypokalemia # Dm2 # Schizophrenia # Seizure disorder # [place] resident (Jourdan Bell) The timing of this note does not necessarily reflect the time of the patient was seen. Greatly appreciate consultation. Subjective Allergies: Coded Allergies: No Known Allergies (Unverified , 03/19/20) Subjective 5/5 hypotensive overnight, given ivf, labs reviewed, meds noted, agitated in am , swearing, foul language 03/24 remains irritable, no bleeding, no f/c, labs noted 03/25 labs noted, no bleeding, no f/c overnight Objective Objective Current Medications Medications (Trade) Dose Ordered Sig/Deric Route PRN Reason Start Time Stop Time Status Last Admin Dose Admin Acetaminophen (Tylenol) 650 mg Q4H PRN ORAL Temp >100.5 03/20/20 02:45 04/19/20 02:44 03/21/20 02:02 Benztropine Mesylate (Cogentin) 0.5 mg BID ORAL 03/20/20 09:00 04/19/20 08:59 03/24/20 17:13 Cefepime HCl 1 gm/ Dextrose 55 ml @ 110 mls/hr Q24H IVPB 03/20/20 15:00 03/27/20 14:59 03/24/20 14:03 Dextrose (Dextrose 50%) 25 ml Q30M PRN IV Hypoglycemia 03/20/20 01:00 06/18/20 00:59 Dextrose (Dextrose 50%) 50 ml Q30M PRN IV Hypoglycemia 03/20/20 01:00 06/18/20 00:59 Dextrose/Sodium Chloride 1,000 ml @ 75 mls/hr [id number] IV 03/21/20 12:15 04/20/20 12:14 03/24/20 08:01 Diphenhydramine HCl (Benadryl) 50 mg BID ORAL 03/20/20 18:00 04/19/20 17:59 03/24/20 17:13 Docusate Sodium (Colace) 100 mg DAILY ORAL 03/20/20 09:00 04/19/20 08:59 03/24/20 08:40 Gabapentin (Neurontin) 300 mg THREE TIMES A DAY ORAL 03/20/20 09:00 04/19/20 08:59 03/24/20 17:13 Haloperidol (Haldol) 5 mg BID ORAL 03/20/20 18:00 05/04/20 17:59 03/24/20 17:13 Heparin Sodium (Porcine) (Heparin 5000 units/ml) 5,000 units EVERY 8 HOURS SUBQ 03/20/20 14:00 05/04/20 13:59 03/24/20 14:04 Insulin Aspart (NovoLOG) BEFORE MEALS AND HS SUBQ 03/20/20 06:30 06/18/20 06:29 Levothyroxine Sodium (Synthroid) 50 mcg DAILY@0630 ORAL 03/20/20 06:30 04/19/20 06:29 03/25/20 05:41 Lorazepam (Ativan) 1 mg Q6H PRN ORAL For Anxiety 03/20/20 16:45 03/27/20 16:44 03/21/20 02:01 Metformin HCl (Glucophage) 500 mg BIDBL ORAL 03/20/20 06:30 04/19/20 06:29 03/25/20 05:41 Quetiapine Fumarate (SEROqueL) 200 mg BID ORAL 03/23/20 18:00 05/04/20 17:59 03/24/20 17:13 Quetiapine Fumarate (SEROqueL) 400 mg QHS ORAL 03/20/20 21:00 05/04/20 20:59 03/24/20 22:04 Sennosides (Senokot) 17.2 mg QHS ORAL 03/22/20 23:00 04/21/20 22:59 Last 24 Hour Vital Signs Date Time Temp Pulse Resp B/P (MAP) Pulse Ox O2 Delivery O2 Flow Rate FiO2 03/25/20 08:00 97.9 79 17 113/77 (89) 97 03/25/20 04:00 98.3 63 18 111/80 (90) 96 03/25/20 04:00 84 03/25/20 00:00 96.8 71 18 115/65 (82) 97 03/25/20 00:00 82 03/24/20 21:00 Nasal Cannula 2.0 03/24/20 20:00 109 03/24/20 20:00 98.0 65 18 112/73 (86) 96 03/24/20 16:00 98.7 86 18 103/73 (83) 95 03/24/20 16:00 94 03/24/20 12:00 109 03/24/20 12:00 98.6 109 18 117/77 (90) 96 03/24/20 09:00 Nasal Cannula 2.0 03/24/20 08:00 97.1 72 19 104/60 (75) 97 72 03/24/20 08:00 97.1 69 19 109/69 (82) 97 03/24/20 08:00 69 03/24/20 04:00 98.0 83 18 100/80 (87) 95 03/24/20 04:00 66 03/24/20 00:00 76 03/24/20 00:00 98.1 89 18 95/71 (79) 94 03/23/20 21:00 Nasal Cannula 2.0 03/23/20 20:00 97.2 94 18 98/71 (80) 94 03/23/20 16:00 97.8 70 20 114/75 (88) 98 03/23/20 16:00 70 03/23/20 12:00 97.8 92 20 126/68 (87) 98 03/23/20 12:00 78 03/23/20 09:00 Nasal Cannula 2.0 Intake and Output 03/24/20 03/25/20 19:00 07:00 Intake Total 960 ml Balance 960 ml Intake Oral 960 ml # Voids 6 2 # Bowel Movements 1 Labs Test 03/22/20 11:45 03/24/20 06:46 03/25/20 06:45 White Blood Count 3.7 K/UL (4.8-10.8) 3.9 K/UL (4.8-10.8) 4.6 K/UL (4.8-10.8) Red Blood Count 3.58 M/UL (4.70-6.10) 3.64 M/UL (4.70-6.10) 3.75 M/UL (4.70-6.10) Hemoglobin 10.6 G/DL (14.2-18.0) 10.6 G/DL (14.2-18.0) 11.1 G/DL (14.2-18.0) Hematocrit 29.8 % (42.0-52.0) 29.9 % (42.0-52.0) 31.1 % (42.0-52.0) Mean Corpuscular Volume 83 FL (80-99) 82 FL (80-99) 83 FL (80-99) Mean Corpuscular Hemoglobin 29.5 PG (27.0-31.0) 29.3 PG (27.0-31.0) 29.5 PG (27.0-31.0) Mean Corpuscular Hemoglobin Concent 35.5 G/DL (32.0-36.0) 35.5 G/DL (32.0-36.0) 35.6 G/DL (32.0-36.0) Red Cell Distribution Width 10.8 % (11.6-14.8) 10.9 % (11.6-14.8) 11.0 % (11.6-14.8) Platelet Count 116 K/UL (150-450) 176 K/UL (150-450) 201 K/UL (150-450) Mean Platelet Volume 7.6 FL (6.5-10.1) 6.5 FL (6.5-10.1) 6.3 FL (6.5-10.1) Neutrophils (%) (Auto) 71.9 % (45.0-75.0) % (45.0-75.0) 61.5 % (45.0-75.0) Lymphocytes (%) (Auto) 19.4 % (20.0-45.0) % (20.0-45.0) 27.5 % (20.0-45.0) Monocytes (%) (Auto) 6.6 % (1.0-10.0) % (1.0-10.0) 6.0 % (1.0-10.0) Eosinophils (%) (Auto) 1.9 % (0.0-3.0) % (0.0-3.0) 4.2 % (0.0-3.0) Basophils (%) (Auto) 0.2 % (0.0-2.0) % (0.0-2.0) 0.8 % (0.0-2.0) Sodium Level 140 MMOL/L (136-145) 145 MMOL/L (136-145) 147 MMOL/L (136-145) Potassium Level 3.2 MMOL/L (3.5-5.1) 3.6 MMOL/L (3.5-5.1) 3.7 MMOL/L (3.5-5.1) Chloride Level 106 MMOL/L (98-107) 111 MMOL/L (98-107) 111 MMOL/L (98-107) Carbon Dioxide Level 29 MMOL/L (21-32) 27 MMOL/L (21-32) 28 MMOL/L (21-32) Anion Gap 6 mmol/L (5-15) 7 mmol/L (5-15) 8 mmol/L (5-15) Blood Urea Nitrogen 9 mg/dL (7-18) 6 mg/dL (7-18) 10 mg/dL (7-18) Creatinine 0.5 MG/DL (0.55-1.30) 0.6 MG/DL (0.55-1.30) 0.7 MG/DL (0.55-1.30) Estimat Glomerular Filtration Rate > 60 mL/min (>60) > 60 mL/min (>60) > 60 mL/min (>60) Glucose Level 108 MG/DL (74-106) 94 MG/DL (74-106) 104 MG/DL (74-106) Calcium Level 7.4 MG/DL (8.5-10.1) 8.1 MG/DL (8.5-10.1) 8.4 MG/DL (8.5-10.1) Hepatitis A IgM Antibody Negative (Negative) Hepatitis B Surface Antigen Negative (Negative) Hepatitis B Core IgM Antibody Negative (Negative) Hepatitis C Antibody <0.1 s/co ratio HIV (1&2) Antibody Rapid Negative (NEGATIVE) Differential Total Cells Counted 100 Neutrophils % (Manual) 68 % (45-75) Lymphocytes % (Manual) 22 % (20-45) Monocytes % (Manual) 7 % (1-10) Eosinophils % (Manual) 3 % (0-3) Basophils % (Manual) 0 % (0-2) Band Neutrophils 0 % (0-8) Platelet Estimate Adequate Platelet Morphology Normal Red Blood Cell Morphology Normal Ferritin 395 NG/ML (8-388) C-Reactive Protein, Quantitative 5.8 mg/dL (0.00-0.90) Height (Feet): 5 Height (Inches): 6.00 Weight (Pounds): 111 Objective Vitals: reviewed General: NAD, A+O x1 HEENT: nc, at Neck: supple Chest: clear breath sounds bilaterally Cardiovascular: RRR, no s3, s4 Abdomen: soft, nontender, nd Extremities: no cce, normal range of motion Neuro: confused Andry Culp MD March 25, 2020 08:48
[2020-03-25] MEDS: QUEtiapine 200mg tab ORAL SCH ×4 (08:49→21:00)
[2020-03-25] MEDS: Benztropine 1mg tab ORAL SCH ×3 (08:49→17:49)
[2020-03-25] MEDS: Docusate 100mg cap ORAL SCH (08:50)
[2020-03-25] MEDS: D5NS 1,000 ML IV SCH ×2 (08:53→22:41)
--- NOTE | 2020-03-25 10:17 | NUR ---
NURSE NOTES: Patient uncooperative and refused all meds, Dr Larsen aware, awaiting response.
--- NOTE | 2020-03-25 10:46 | Pulmonology Progress Note ---
Subjective Interval Events: None new Constitutional: Reports: no symptoms HEENT: Repors: no symptoms Respiratory: Reports: no symptoms Cardiovascular: Reports: no symptoms Allergies: Coded Allergies: No Known Allergies (Unverified , 03/19/20) All Systems: reviewed and negative except above Objective Last 24 Hour Vital Signs Date Time Temp Pulse Resp B/P (MAP) Pulse Ox O2 Delivery O2 Flow Rate FiO2 03/25/20 08:00 78 03/25/20 08:00 97.9 79 17 113/77 (89) 97 03/25/20 04:00 98.3 63 18 111/80 (90) 96 03/25/20 04:00 84 03/25/20 00:00 96.8 71 18 115/65 (82) 97 03/25/20 00:00 82 03/24/20 21:00 Nasal Cannula 2.0 03/24/20 20:00 109 03/24/20 20:00 98.0 65 18 112/73 (86) 96 03/24/20 16:00 98.7 86 18 103/73 (83) 95 03/24/20 16:00 94 03/24/20 12:00 109 03/24/20 12:00 98.6 109 18 117/77 (90) 96 Intake and Output 03/24/20 03/25/20 19:00 07:00 Intake Total 960 ml Balance 960 ml Intake Oral 960 ml # Voids 6 2 # Bowel Movements 1 General Appearance: no acute distress HEENT: normocephalic Respiratory/Chest: chest wall non-tender Cardiovascular: normal peripheral pulses Abdomen: normal bowel sounds Laboratory Tests 03/25/20 06:45: White Blood Count 4.6L, Red Blood Count 3.75L, Hemoglobin 11.1L, Hematocrit 31.1L, Mean Corpuscular Volume 83, Mean Corpuscular Hemoglobin 29.5, Mean Corpuscular Hemoglobin Concent 35.6, Red Cell Distribution Width 11.0L, Platelet Count 201, Mean Platelet Volume 6.3L, Neutrophils (%) (Auto) 61.5, Lymphocytes (%) (Auto) 27.5, Monocytes (%) (Auto) 6.0, Eosinophils (%) (Auto) 4.2H, Basophils (%) (Auto) 0.8, Sodium Level 147H, Potassium Level 3.7, Chloride Level 111H, Carbon Dioxide Level 28, Anion Gap 8, Blood Urea Nitrogen 10, Creatinine 0.7, Estimat Glomerular Filtration Rate > 60, Glucose Level 104, Calcium Level 8.4L Current Medications Medications (Trade) Dose Ordered Sig/Deric Route PRN Reason Start Time Stop Time Status Last Admin Dose Admin Acetaminophen (Tylenol) 650 mg Q4H PRN ORAL Temp >100.5 03/20/20 02:45 04/19/20 02:44 03/21/20 02:02 Benztropine Mesylate (Cogentin) 0.5 mg BID ORAL 03/20/20 09:00 04/19/20 08:59 03/24/20 17:13 Cefepime HCl 1 gm/ Dextrose 55 ml @ 110 mls/hr Q12H IVPB 03/25/20 15:00 03/27/20 14:59 Dextrose (Dextrose 50%) 25 ml Q30M PRN IV Hypoglycemia 03/20/20 01:00 06/18/20 00:59 Dextrose (Dextrose 50%) 50 ml Q30M PRN IV Hypoglycemia 03/20/20 01:00 06/18/20 00:59 Dextrose/Sodium Chloride 1,000 ml @ 75 mls/hr [id number] IV 03/21/20 12:15 04/20/20 12:14 03/25/20 08:53 Diphenhydramine HCl (Benadryl) 50 mg BID ORAL 03/20/20 18:00 04/19/20 17:59 03/24/20 17:13 Docusate Sodium (Colace) 100 mg DAILY ORAL 03/20/20 09:00 04/19/20 08:59 03/25/20 08:50 Gabapentin (Neurontin) 300 mg THREE TIMES A DAY ORAL 03/20/20 09:00 04/19/20 08:59 03/25/20 08:50 Haloperidol (Haldol) 5 mg BID ORAL 03/20/20 18:00 05/04/20 17:59 03/24/20 17:13 Heparin Sodium (Porcine) (Heparin 5000 units/ml) 5,000 units EVERY 8 HOURS SUBQ 03/20/20 14:00 05/04/20 13:59 03/24/20 14:04 Insulin Aspart (NovoLOG) BEFORE MEALS AND HS SUBQ 03/20/20 06:30 06/18/20 06:29 Levothyroxine Sodium (Synthroid) 50 mcg DAILY@0630 ORAL 03/20/20 06:30 04/19/20 06:29 03/25/20 05:41 Lorazepam (Ativan) 1 mg Q6H PRN ORAL For Anxiety 03/20/20 16:45 03/27/20 16:44 03/21/20 02:01 Metformin HCl (Glucophage) 500 mg BIDBL ORAL 03/20/20 06:30 04/19/20 06:29 03/25/20 05:41 Quetiapine Fumarate (SEROqueL) 200 mg BID ORAL 03/23/20 18:00 05/04/20 17:59 03/24/20 17:13 Quetiapine Fumarate (SEROqueL) 400 mg QHS ORAL 03/20/20 21:00 05/04/20 20:59 03/24/20 22:04 Sennosides (Senokot) 17.2 mg QHS ORAL 03/22/20 23:00 04/21/20 22:59 Assessment/Plan Assessment/Plan IMPRESSION: 1. Right lung pneumonia. 2. assisted resident. 3. Psych disorder. 4. Hypothyroidism. DISCUSSION: Continue broad-spectrum antibiotics. Continue medications. Continue oxygen and pulmonary hygiene. Currently saturating well on 2L/min O2 Is positive COVID-19. I will follow carefully. Neymar Storm Omar Syed MD March 25, 2020 10:46
--- NOTE | 2020-03-25 11:45 | General Progress Note ---
Assessment/Plan Problem List: (1) UTI (urinary tract infection) ICD Codes: N39.0 - Urinary tract infection, site not specified SNOMED: 25667992 (2) Diabetes ICD Codes: E11.9 - Type 2 diabetes mellitus without complications SNOMED: 23779325 (3) Seizure ICD Codes: R56.9 - Unspecified convulsions SNOMED: 69240703 (4) Polyneuropathy in diabetes ICD Codes: E11.42 - Type 2 diabetes mellitus with diabetic polyneuropathy SNOMED: 92717236, 08386530 (5) Hypothyroid ICD Codes: E03.9 - Hypothyroidism, unspecified SNOMED: 07547056 (6) Weak ICD Codes: R53.1 - Weakness SNOMED: 63754250 (7) COPD (chronic obstructive pulmonary disease) ICD Codes: J44.9 - Chronic obstructive pulmonary disease, unspecified SNOMED: 56237457 (8) Acute febrile illness ICD Codes: R50.9 - Fever, unspecified SNOMED: 929029702 (9) Suspected 2019 novel coronavirus infection ICD Codes: Z20.828 - Contact with and (suspected) exposure to other viral communicable diseases SNOMED: 681567013 (10) Pancytopenia ICD Codes: D61.818 - Other pancytopenia SNOMED: 218333617 Status: unchanged Assessment/Plan: o2 pulm tx abx pt diet cbc bmp am heme eval aru eval Subjective Constitutional: Reports: weakness Allergies: Coded Allergies: No Known Allergies (Unverified , 03/19/20) All Systems: reviewed and negative except above Subjective o2nc calm Objective Last 24 Hour Vital Signs Date Time Temp Pulse Resp B/P (MAP) Pulse Ox O2 Delivery O2 Flow Rate FiO2 03/25/20 09:00 Nasal Cannula 2.0 03/25/20 08:00 78 03/25/20 08:00 97.9 79 17 113/77 (89) 97 03/25/20 04:00 98.3 63 18 111/80 (90) 96 03/25/20 04:00 84 03/25/20 00:00 96.8 71 18 115/65 (82) 97 03/25/20 00:00 82 03/24/20 21:00 Nasal Cannula 2.0 03/24/20 20:00 109 03/24/20 20:00 98.0 65 18 112/73 (86) 96 03/24/20 16:00 98.7 86 18 103/73 (83) 95 03/24/20 16:00 94 03/24/20 12:00 109 03/24/20 12:00 98.6 109 18 117/77 (90) 96 Intake and Output 03/24/20 03/25/20 19:00 07:00 Intake Total 960 ml Balance 960 ml Intake Oral 960 ml # Voids 6 2 # Bowel Movements 1 Laboratory Tests 03/25/20 06:45: White Blood Count 4.6L, Red Blood Count 3.75L, Hemoglobin 11.1L, Hematocrit 31.1L, Mean Corpuscular Volume 83, Mean Corpuscular Hemoglobin 29.5, Mean Corpuscular Hemoglobin Concent 35.6, Red Cell Distribution Width 11.0L, Platelet Count 201, Mean Platelet Volume 6.3L, Neutrophils (%) (Auto) 61.5, Lymphocytes (%) (Auto) 27.5, Monocytes (%) (Auto) 6.0, Eosinophils (%) (Auto) 4.2H, Basophils (%) (Auto) 0.8, Sodium Level 147H, Potassium Level 3.7, Chloride Level 111H, Carbon Dioxide Level 28, Anion Gap 8, Blood Urea Nitrogen 10, Creatinine 0.7, Estimat Glomerular Filtration Rate > 60, Glucose Level 104, Calcium Level 8.4L Height (Feet): 5 Height (Inches): 6.00 Weight (Pounds): 111 General Appearance: lethargic EENT: PERRL/EOMI Neck: normal alignment Cardiovascular: normal rate, regular rhythm Respiratory/Chest: no respiratory distress, no accessory muscle use Extremities: normal inspection Skin: normal pigmentation LarsenRamoneMariah DO March 25, 2020 11:45
[2020-03-25 12:00] VITALS: BP 130/87
--- NOTE | 2020-03-25 12:18 | Infectious Diseases Prog Note ---
Assessment/Plan Assessment/Plan Assessment: Multifocal PNA- 2ry to COVID19 (resident of [place] with large outbreak)- on 2l [place] -03/21 CXR: Worsening airspace disease most likely representing pneumonia at the right upper lobe and right lower lobe. Unchanged peripheral patchy airspace opacities at the left base probably also representing pneumonia. -CXR: Patchy right lung opacities suggest multifocal pneumonia. Possible right hilar enlargement versus artifactual prominence due to patient positioning , recommend attention on followup. If there is continued concern, consider CT. Fever; SP Pancytopenia/Lymphocytopenia -u/a neg Hypokalemia COPD Dm2 schizophrenia seizure disorder polyneuropathy hypothyroidism [place] resident (Jourdan Bell) Plan: -Dc empiric Cefepime #/5 -03/23 SP IV Vancomycin #4 -03/19 sp Flagyl x1 -f/u cx -Monitor CBC/CMP, temperatures -COVID19 isolation -aspiration precautions Thank you for consulting [facility]. Will continue to follow along with you. Discussed with RN. Subjective Allergies: Coded Allergies: No Known Allergies (Unverified , 03/19/20) Subjective afebrile at 2l [place] Objective Vital Signs Last 24 Hour Vital Signs Date Time Temp Pulse Resp B/P (MAP) Pulse Ox O2 Delivery O2 Flow Rate FiO2 03/25/20 09:00 Nasal Cannula 2.0 03/25/20 08:00 78 03/25/20 08:00 97.9 79 17 113/77 (89) 97 03/25/20 04:00 98.3 63 18 111/80 (90) 96 03/25/20 04:00 84 03/25/20 00:00 96.8 71 18 115/65 (82) 97 03/25/20 00:00 82 03/24/20 21:00 Nasal Cannula 2.0 03/24/20 20:00 109 03/24/20 20:00 98.0 65 18 112/73 (86) 96 03/24/20 16:00 98.7 86 18 103/73 (83) 95 03/24/20 16:00 94 Height (Feet): 5 Height (Inches): 6.00 Weight (Pounds): 111 Objective not examined to limit [id number] exposure Laboratory Tests Test 03/25/20 06:45 White Blood Count 4.6 K/UL (4.8-10.8) L Red Blood Count 3.75 M/UL (4.70-6.10) L Hemoglobin 11.1 G/DL (14.2-18.0) L Hematocrit 31.1 % (42.0-52.0) L Mean Corpuscular Volume 83 FL (80-99) Mean Corpuscular Hemoglobin 29.5 PG (27.0-31.0) Mean Corpuscular Hemoglobin Concent 35.6 G/DL (32.0-36.0) Red Cell Distribution Width 11.0 % (11.6-14.8) L Platelet Count 201 K/UL (150-450) Mean Platelet Volume 6.3 FL (6.5-10.1) L Neutrophils (%) (Auto) 61.5 % (45.0-75.0) Lymphocytes (%) (Auto) 27.5 % (20.0-45.0) Monocytes (%) (Auto) 6.0 % (1.0-10.0) Eosinophils (%) (Auto) 4.2 % (0.0-3.0) H Basophils (%) (Auto) 0.8 % (0.0-2.0) Sodium Level 147 MMOL/L (136-145) H Potassium Level 3.7 MMOL/L (3.5-5.1) Chloride Level 111 MMOL/L (98-107) H Carbon Dioxide Level 28 MMOL/L (21-32) Anion Gap 8 mmol/L (5-15) Blood Urea Nitrogen 10 mg/dL (7-18) Creatinine 0.7 MG/DL (0.55-1.30) Estimat Glomerular Filtration Rate > 60 mL/min (>60) Glucose Level 104 MG/DL (74-106) Calcium Level 8.4 MG/DL (8.5-10.1) L Current Medications Medications (Trade) Dose Ordered Sig/Deric Route PRN Reason Start Time Stop Time Status Last Admin Dose Admin Acetaminophen (Tylenol) 650 mg Q4H PRN ORAL Temp >100.5 03/20/20 02:45 04/19/20 02:44 03/21/20 02:02 Benztropine Mesylate (Cogentin) 0.5 mg BID ORAL 03/20/20 09:00 04/19/20 08:59 03/24/20 17:13 Cefepime HCl 1 gm/ Dextrose 55 ml @ 110 mls/hr Q12H IVPB 03/25/20 15:00 03/27/20 14:59 Dextrose (Dextrose 50%) 25 ml Q30M PRN IV Hypoglycemia 03/20/20 01:00 06/18/20 00:59 Dextrose (Dextrose 50%) 50 ml Q30M PRN IV Hypoglycemia 03/20/20 01:00 06/18/20 00:59 Dextrose/Sodium Chloride 1,000 ml @ 75 mls/hr [id number] IV 03/21/20 12:15 04/20/20 12:14 03/25/20 08:53 Diphenhydramine HCl (Benadryl) 50 mg BID ORAL 03/20/20 18:00 04/19/20 17:59 03/24/20 17:13 Docusate Sodium (Colace) 100 mg DAILY ORAL 03/20/20 09:00 04/19/20 08:59 03/25/20 08:50 Gabapentin (Neurontin) 300 mg THREE TIMES A DAY ORAL 03/20/20 09:00 04/19/20 08:59 03/25/20 12:05 Haloperidol (Haldol) 5 mg BID ORAL 03/20/20 18:00 05/04/20 17:59 03/24/20 17:13 Heparin Sodium (Porcine) (Heparin 5000 units/ml) 5,000 units EVERY 8 HOURS SUBQ 03/20/20 14:00 05/04/20 13:59 03/24/20 14:04 Insulin Aspart (NovoLOG) BEFORE MEALS AND HS SUBQ 03/20/20 06:30 06/18/20 06:29 Levothyroxine Sodium (Synthroid) 50 mcg DAILY@0630 ORAL 03/20/20 06:30 04/19/20 06:29 03/25/20 05:41 Lorazepam (Ativan) 1 mg Q6H PRN ORAL For Anxiety 03/20/20 16:45 03/27/20 16:44 03/21/20 02:01 Metformin HCl (Glucophage) 500 mg BIDBL ORAL 03/20/20 06:30 04/19/20 06:29 03/25/20 11:30 Quetiapine Fumarate (SEROqueL) 200 mg BID ORAL 03/23/20 18:00 05/04/20 17:59 03/24/20 17:13 Quetiapine Fumarate (SEROqueL) 400 mg QHS ORAL 03/20/20 21:00 05/04/20 20:59 03/24/20 22:04 Sennosides (Senokot) 17.2 mg QHS ORAL 03/22/20 23:00 04/21/20 22:59 Sandra Whitney M.D. March 25, 2020 12:18
--- NOTE | 2020-03-25 12:34 | NUR ---
NURSE NOTES: Covid swab done, sent to lab.
[2020-03-25] MEDS ORDERED: Cefepime HCl 1 GM in D5W 55 ML IVPB SCH (15:00)
--- NOTE | 2020-03-25 15:28 | NUR ---
CASE MANAGEMENT: REVIEW 03/25/20 SI:COVID-19 . ACUTE FEBRILE ILLNESS . COPD 98.6 76 20 130/87 96% ON 2L [place] WBC 4.6 H/H 11.1/31.1 NA+ 147 CL-111 CA+8.4 IS:IV D5@75ML/HR IV CEFEPIME Q24HR NEURONTIN PO TID METFORMIN PO BID SEROQUEL PO 400MG QHS ATIVAN Q6HR/PRN TYLENOL PO Q4HR/PRN HEPARIN SQ TID \: 2E TELE UNIT DCP: GRACIE WHEN X2 COVID TEST PLAN: OK TO DOWNGRADE TO MED SURG
--- NOTE | 2020-03-25 15:59 | Progress Note ---
DATE: 03/25/2020 SUBJECTIVE: This is a 74-year-old male patient who continues to have some agitation, irritability, extreme mood lability. He is here to rule out COVID-19 infection. He also has other medical problems such as COPD, diabetes, seizure disorder, acute febrile illness, polyneuropathy, and diabetes. That is why, he is in the hospital, but he has lot of mood lability and agitation. MENTAL STATUS EXAMINATION: This is a 74-year-old male. Appearance is disheveled. Attitude, irritable and agitated. Affect, guarded and restricted. Intellect poor. Mood, depressed and anxious. Motor activity, psychomotor agitation. Attention span is poor. Orientation x2. Speech is pressured. Thought process, disorganized and illogical. Insight and judgment is poor. DIAGNOSIS: Schizoaffective, bipolar type. PLAN: Treat with Haldol 5 mg twice a day, Ativan 1 every 6 hours p.r.n. anxiety and agitation, Seroquel 200 mg twice a day, 400 mg at bedtime, Neurontin at a dose of 300 mg 3 times a day. Twenty minutes of cognitive behavioral therapy to help him identify his automatic negative thoughts, help him convert his negative thoughts to more positive thoughts to reduce depression, anxiety, and suicidality. Chart reviewed. Discussed with staff. Seen and assessed at bedside. Cristina Brandt M.D. DR: FIOR JOB#: [id number] CC:
[2020-03-25 16:00] VITALS: BP 117/77
--- NOTE | 2020-03-25 19:32 | NUR ---
HAND-OFF: Report given to Debbie JAMES.
--- NOTE | 2020-03-25 19:50 | NUR ---
NURSE NOTES: Received pt from Kalyn, RN. Pt awake, alert, and talkative. Bed in lowest position. Call light within reach. Will continue to monitor.
[2020-03-25 20:00] VITALS: BP 120/70
[2020-03-25] MEDS: Sennosides 8.6mg tab ORAL SCH (21:00)
--- NOTE | 2020-03-25 23:34 | Cardiology Progress Note ---
Assessment/Plan Assessment/Plan 1. Hypotension, borderline, continue hydration, most likely secondary to COVID- 19 pneumonia. 2. Confirmed COVID-19 infection with B/L pneumonia. 3. History of COPD. 4. Pancytopenia. 5. Hypernatremia Subjective Subjective Sinus rhythm at rate of 79. Objective Last 24 Hour Vital Signs Date Time Temp Pulse Resp B/P (MAP) Pulse Ox O2 Delivery O2 Flow Rate FiO2 03/25/20 16:00 79 03/25/20 16:00 97.1 63 20 117/77 (90) 97 03/25/20 12:00 98.6 76 20 130/87 (101) 96 03/25/20 12:00 86 03/25/20 09:00 Nasal Cannula 2.0 03/25/20 08:00 78 03/25/20 08:00 97.9 79 17 113/77 (89) 97 03/25/20 04:00 98.3 63 18 111/80 (90) 96 03/25/20 04:00 84 03/25/20 00:00 96.8 71 18 115/65 (82) 97 03/25/20 00:00 82 Intake and Output 03/24/20 03/25/20 19:00 07:00 Intake Total 960 ml Balance 960 ml Intake Oral 960 ml # Voids 6 2 # Bowel Movements 1 Laboratory Tests Test 03/25/20 06:45 White Blood Count 4.6 K/UL (4.8-10.8) L Red Blood Count 3.75 M/UL (4.70-6.10) L Hemoglobin 11.1 G/DL (14.2-18.0) L Hematocrit 31.1 % (42.0-52.0) L Mean Corpuscular Volume 83 FL (80-99) Mean Corpuscular Hemoglobin 29.5 PG (27.0-31.0) Mean Corpuscular Hemoglobin Concent 35.6 G/DL (32.0-36.0) Red Cell Distribution Width 11.0 % (11.6-14.8) L Platelet Count 201 K/UL (150-450) Mean Platelet Volume 6.3 FL (6.5-10.1) L Neutrophils (%) (Auto) 61.5 % (45.0-75.0) Lymphocytes (%) (Auto) 27.5 % (20.0-45.0) Monocytes (%) (Auto) 6.0 % (1.0-10.0) Eosinophils (%) (Auto) 4.2 % (0.0-3.0) H Basophils (%) (Auto) 0.8 % (0.0-2.0) Sodium Level 147 MMOL/L (136-145) H Potassium Level 3.7 MMOL/L (3.5-5.1) Chloride Level 111 MMOL/L (98-107) H Carbon Dioxide Level 28 MMOL/L (21-32) Anion Gap 8 mmol/L (5-15) Blood Urea Nitrogen 10 mg/dL (7-18) Creatinine 0.7 MG/DL (0.55-1.30) Estimat Glomerular Filtration Rate > 60 mL/min (>60) Glucose Level 104 MG/DL (74-106) Calcium Level 8.4 MG/DL (8.5-10.1) L Objective HEENT: Normocephalic and atraumatic. PERRLA, EOMI. NECK: No JVD, no carotid bruit. CARDIOVASCULAR: Normal S1S2, no murmurs, gallops or rubs, regular, rate and rhythm. PULMONARY: Diminished BS, crackles right lung. ABDOMEN: Non-tender, non-distended, + BS EXTREMITIES: No cyanosis, edema or clubbing. Ja Dinh MD March 25, 2020 23:34
[2020-03-26] VITALS (7 sets, daily range): BP systolic 111–131; BP diastolic 67–89
[2020-03-26] MEDS: Heparin 5000 units/ml inj SUBQ SCH ×3 (06:00→22:05)
[2020-03-26] MEDS: NovoLOG Insulin Flexpen SUBQ SCH ×4 (06:18→21:00)
[2020-03-26] MEDS: metFORMIN 500mg tab ORAL SCH ×2 (06:18→12:16)
--- NOTE | 2020-03-26 06:51 | NUR ---
HAND-OFF: Report given to JACOB Morales. Pt stable.
--- NOTE | 2020-03-26 06:54 | NUR ---
NURSE NOTES: Patient transferred from Tele unit. Report from Debbie JAMES. A&OX2, confused. IV site patent and intact. Skin intact. Belongings were checked with Debbie JAMES. Bed in lowest position. Call light within reach. Will continue to monitor.
[2020-03-26] MEDS ORDERED: LORazepam 1mg tab ORAL PRN (07:30)
[2020-03-26] MEDS: D5NS 1,000 ML IV SCH ×2 (07:30→22:06)
--- NOTE | 2020-03-26 07:44 | NUR ---
HAND-OFF: Report given to Jeny JAMES.
--- NOTE | 2020-03-26 07:50 | NUR ---
NURSE NOTES: Report received from Carmen Espinoza RN. Patient seen on rounds, AxOx1, not in distress. Tolerating room air. Afebrile. Patient is ambulatory with steady gait. Noted distal occlusion on right PIV, not able to flush. Line removed. Will reinsert. Isolation precautions maintained. Bed low and locked, siderails up x2, zone alarms on 1, instructed to use call light for assistance and placed within reach. Will continue to monitor.
[2020-03-26] MEDS: QUEtiapine 200mg tab ORAL SCH ×4 (08:19→22:04)
[2020-03-26] MEDS: Docusate 100mg cap ORAL SCH (08:20)
[2020-03-26] MEDS: Benztropine 1mg tab ORAL SCH ×2 (08:20→17:26)
--- NOTE | 2020-03-26 09:30 | NUR ---
HOSPITAL ACCOUNT LIAISON NOTE SW received a call from [facility] [facility] and was informed pt has hearing for renewing conservatorship on 03/29/2020. However, pt will not need to attend d/t the current medical issue and the pandemic restriction.
--- NOTE | 2020-03-26 09:41 | General Progress Note ---
Assessment/Plan Problem List: (1) UTI (urinary tract infection) ICD Codes: N39.0 - Urinary tract infection, site not specified SNOMED: 99478657 (2) Diabetes ICD Codes: E11.9 - Type 2 diabetes mellitus without complications SNOMED: 41404253 (3) Seizure ICD Codes: R56.9 - Unspecified convulsions SNOMED: 29571233 (4) Polyneuropathy in diabetes ICD Codes: E11.42 - Type 2 diabetes mellitus with diabetic polyneuropathy SNOMED: 07219764, 21017508 (5) Hypothyroid ICD Codes: E03.9 - Hypothyroidism, unspecified SNOMED: 60975484 (6) Weak ICD Codes: R53.1 - Weakness SNOMED: 70181537 (7) COPD (chronic obstructive pulmonary disease) ICD Codes: J44.9 - Chronic obstructive pulmonary disease, unspecified SNOMED: 92706313 (8) Acute febrile illness ICD Codes: R50.9 - Fever, unspecified SNOMED: 647083388 (9) Suspected 2019 novel coronavirus infection ICD Codes: Z20.828 - Contact with and (suspected) exposure to other viral communicable diseases SNOMED: 465025361 (10) Pancytopenia ICD Codes: D61.818 - Other pancytopenia SNOMED: 138718231 Status: unchanged Assessment/Plan: o2 pulm tx abx pt diet cbc bmp am heme eval aru eval Subjective Constitutional: Reports: weakness Allergies: Coded Allergies: No Known Allergies (Unverified , 03/19/20) All Systems: reviewed and negative except above Subjective calm in room Objective Last 24 Hour Vital Signs Date Time Temp Pulse Resp B/P (MAP) Pulse Ox O2 Delivery O2 Flow Rate FiO2 03/26/20 08:00 98.0 93 19 124/76 (92) 96 03/26/20 07:35 97 Nasal Cannula 2.0 28 03/26/20 06:54 98.4 77 19 126/80 (95) 96 03/26/20 04:00 98.5 88 19 125/89 (101) 98 03/26/20 00:00 98.8 88 20 123/83 (96) 98 03/25/20 21:00 Nasal Cannula 2.0 03/25/20 20:00 97.1 66 20 120/70 (87) 94 5/7/20 16:00 79 03/25/20 16:00 97.1 63 20 117/77 (90) 97 03/25/20 12:00 98.6 76 20 130/87 (101) 96 03/25/20 12:00 86 Intake and Output 03/25/20 03/26/20 19:00 07:00 Intake Total 1635 ml Output Total 600 ml Balance 1035 ml Intake Oral 960 ml IV Total 675 ml Output Urine Total 600 ml # Voids 2 2 Height (Feet): 5 Height (Inches): 6.00 Weight (Pounds): 111 General Appearance: lethargic EENT: normal ENT inspection Neck: normal alignment Cardiovascular: normal rate, regular rhythm Respiratory/Chest: no respiratory distress, no accessory muscle use Extremities: normal inspection Skin: normal pigmentation Ramone Larsen DO March 26, 2020 09:41
[2020-03-26 10:29] LABS: BASOPHILS % (AUTO) 0.3 % (0.0-2.0); EOSINOPHILS % (AUTO) 1.5 % (0.0-3.0); HEMATOCRIT 29.8 % (42.0-52.0); HEMOGLOBIN 10.3 G/DL (14.2-18.0); LYMPHOCYTES % (AUTO) 22.2 % (20.0-45.0); MEAN CORPUSCULAR VOLUME 82 FL (80-99); MONOCYTES % (AUTO) 6.1 % (1.0-10.0); NEUTROPHILS % (AUTO) 69.9 % (45.0-75.0); PLATELET COUNT 242 K/UL (150-450); RED BLOOD COUNT 3.63 M/UL (4.70-6.10); RED CELL DISTRIBUTION WIDTH 10.8 % (11.6-14.8); WHITE BLOOD COUNT 6.1 K/UL (4.8-10.8)
[2020-03-26 10:48] LABS: ANION GAP 7 mmol/L (5-15); BLOOD UREA NITROGEN 13 mg/dL (7-18); CALCIUM 8.3 MG/DL (8.5-10.1); CARBON DIOXIDE 28 MMOL/L (21-32); CHLORIDE 108 MMOL/L (98-107); CREATININE 0.7 MG/DL (0.55-1.30); POTASSIUM 3.7 MMOL/L (3.5-5.1); SODIUM 143 MMOL/L (136-145)
--- NOTE | 2020-03-26 11:16 | Pulmonology Progress Note ---
Subjective Interval Events: None new Constitutional: Reports: no symptoms HEENT: Repors: no symptoms Respiratory: Reports: no symptoms Cardiovascular: Reports: no symptoms Allergies: Coded Allergies: No Known Allergies (Unverified , 03/19/20) All Systems: reviewed and negative except above Objective Last 24 Hour Vital Signs Date Time Temp Pulse Resp B/P (MAP) Pulse Ox O2 Delivery O2 Flow Rate FiO2 03/26/20 09:00 Room Air 03/26/20 08:00 98.0 93 19 124/76 (92) 96 03/26/20 07:35 97 Nasal Cannula 2.0 28 03/26/20 06:54 98.4 77 19 126/80 (95) 96 03/26/20 04:00 98.5 88 19 125/89 (101) 98 03/26/20 00:00 98.8 88 20 123/83 (96) 98 03/25/20 21:00 Nasal Cannula 2.0 03/25/20 20:00 97.1 66 20 120/70 (87) 94 03/25/20 16:00 79 03/25/20 16:00 97.1 63 20 117/77 (90) 97 03/25/20 12:00 98.6 76 20 130/87 (101) 96 03/25/20 12:00 86 Intake and Output 03/25/20 03/26/20 19:00 07:00 Intake Total 1635 ml Output Total 600 ml Balance 1035 ml Intake Oral 960 ml IV Total 675 ml Output Urine Total 600 ml # Voids 2 2 General Appearance: no acute distress HEENT: normocephalic Respiratory/Chest: chest wall non-tender Cardiovascular: normal peripheral pulses Abdomen: normal bowel sounds Laboratory Tests 03/26/20 10:00: White Blood Count 6.1, Red Blood Count 3.63L, Hemoglobin 10.3L, Hematocrit 29.8L , Mean Corpuscular Volume 82, Mean Corpuscular Hemoglobin 28.5, Mean Corpuscular Hemoglobin Concent 34.7, Red Cell Distribution Width 10.8L, Platelet Count 242, Mean Platelet Volume 6.5, Neutrophils (%) (Auto) 69.9, Lymphocytes (%) (Auto) 22.2, Monocytes (%) (Auto) 6.1, Eosinophils (%) (Auto) 1.5, Basophils (%) (Auto) 0.3, Sodium Level 143, Potassium Level 3.7, Chloride Level 108H, Carbon Dioxide Level 28, Anion Gap 7, Blood Urea Nitrogen 13, Creatinine 0.7, Estimat Glomerular Filtration Rate > 60, Glucose Level 108H, Calcium Level 8.3L Current Medications Medications (Trade) Dose Ordered Sig/Deric Route PRN Reason Start Time Stop Time Status Last Admin Dose Admin Acetaminophen (Tylenol) 650 mg Q4H PRN ORAL Temp >100.5 03/26/20 07:30 04/19/20 07:29 Benztropine Mesylate (Cogentin) 0.5 mg BID ORAL 03/26/20 09:00 04/19/20 08:59 03/26/20 08:20 Dextrose (Dextrose 50%) 25 ml Q30M PRN IV Hypoglycemia 03/26/20 07:30 06/18/20 00:59 Dextrose (Dextrose 50%) 50 ml Q30M PRN IV Hypoglycemia 03/26/20 07:30 06/18/20 00:59 Dextrose/Sodium Chloride 1,000 ml @ 75 mls/hr [id number] IV 03/26/20 07:30 04/20/20 12:14 Diphenhydramine HCl (Benadryl) 50 mg BID ORAL 03/26/20 09:00 04/19/20 17:59 03/26/20 08:20 Docusate Sodium (Colace) 100 mg DAILY ORAL 03/26/20 09:00 04/19/20 08:59 03/26/20 08:20 Gabapentin (Neurontin) 300 mg THREE TIMES A DAY ORAL 03/26/20 09:00 04/19/20 08:59 03/26/20 08:20 Haloperidol (Haldol) 5 mg BID ORAL 03/26/20 09:00 05/04/20 17:59 03/26/20 08:20 Heparin Sodium (Porcine) (Heparin 5000 units/ml) 5,000 units EVERY 8 HOURS SUBQ 03/26/20 14:00 05/04/20 13:59 Insulin Aspart (NovoLOG) BEFORE MEALS AND HS SUBQ 03/26/20 11:30 06/18/20 06:29 Levothyroxine Sodium (Synthroid) 50 mcg DAILY@0630 ORAL 03/27/20 06:30 04/19/20 06:29 Lorazepam (Ativan) 1 mg Q6H PRN ORAL For Anxiety 03/26/20 07:30 03/27/20 07:29 Metformin HCl (Glucophage) 500 mg BIDBL ORAL 03/26/20 11:30 04/19/20 06:29 Quetiapine Fumarate (SEROqueL) 200 mg BID ORAL 03/26/20 09:00 05/04/20 17:59 03/26/20 08:19 Quetiapine Fumarate (SEROqueL) 400 mg QHS ORAL 03/26/20 21:00 05/04/20 20:59 Sennosides (Senokot) 17.2 mg QHS ORAL 03/26/20 21:00 04/21/20 22:59 Assessment/Plan Assessment/Plan IMPRESSION: 1. Right lung pneumonia. 2. group home resident. 3. Psych disorder. 4. Hypothyroidism. DISCUSSION: Continue broad-spectrum antibiotics. Continue medications. Continue oxygen and pulmonary hygiene. Currently saturating well on 2L/min O2 Is positive COVID-19. I will follow carefully. Neymar Storm Omar Syed MD March 26, 2020 11:16
--- NOTE | 2020-03-26 11:46 | Hematology/Onc Progress Note ---
Assessment/Plan Assessment/Plan Assessment and Recs # Pancytopenia -- multiple etiologies could be related to underlying liver disease, medication-induced, infection versus viral syndrome versus underlying bone marrow cause, in this case is related to underlying covid19+ --> peripheral smear has been ordered and does not show significant abnormalities --> Medications have been reviewed --> Continue to monitor for improvement, trend cbc --> Hep panel and HIV have been ordered-->NEG --> US abd ordered to r/o cirrhosis and hepatosplenomegaly --> consider if doesn 't resolve in several days --> reverse isolation if ANC is <2000 --> Give neupogen if ANC <1000 --> Transfuse if hgb <7, with 1 unit prbc --> consider bone marrow biopsy if no other causes are found --> wbc 5-->3-->3.7 --> hgb 9 # Multifocal pna -- with respiratory distress -- Suspected 2019 novel coronavirus infection --> covid 19+ --> per Dr. Benítez --> per ID, abx cefepime/vanc # COPD (chronic obstructive pulmonary disease) --> breathing rx as needed # Hypotension, most likely secondary to COVID-19 pneumonia --> s/p 1000 ml IV NS with recovery of SBP now at 95 mmHg. --> per Dr. Dinh # Hypokalemia # Dm2 # Schizophrenia # Seizure disorder # [place] resident ([place]our[place] Bell) The timing of this note does not necessarily reflect the time of the patient was seen. Greatly appreciate consultation. Subjective Constitutional: Denies: no symptoms, chills, fever, malaise, weakness, other HEENT: Denies: no symptoms, eye pain, blurred vision, tearing, double vision, ear pain, ear discharge, nose pain, nose congestion, throat pain, throat swelling, mouth pain, mouth swelling, other Cardiovascular: Denies: no symptoms, chest pain, edema, irregular heart rate, lightheadedness, palpitations, syncope, other Respiratory: Denies: no symptoms, cough, shortness of breath, SOB with excertion, SOB at rest, sputum, wheezing, other Gastrointestinal/Abdominal: Denies: no symptoms, abdomen distended, abdominal pain, black stools, tarry stools, blood in stool, constipated, diarrhea, difficulty swallowing, nausea, poor appetite, poor fluid intake, rectal bleeding , vomiting, other Genitourinary: Denies: no symptoms, burning, discharge, frequency, flank pain, hematuria, incontinence, pain, urgency, other Neurologic/Psychiatric: Denies: no symptoms, anxiety, depressed, emotional problems, headache, numbness, paresthesia, pre-existing deficit, seizure, tingling, tremors, weakness, other Hematologic/Lymphatic: Denies: no symptoms, anemia, easy bleeding, easy bruising, adenopathy, other Allergies: Coded Allergies: No Known Allergies (Unverified , 03/19/20) Subjective 03/23 hypotensive overnight, given ivf, labs reviewed, meds noted, agitated in am , swearing, foul language 03/24 remains irritable, no bleeding, no f/c, labs noted 03/25 labs noted, no bleeding, no f/c overnight 03/26 labs noted, hgb 10.1 wbc 6 Objective Objective Current Medications Medications (Trade) Dose Ordered Sig/Deric Route PRN Reason Start Time Stop Time Status Last Admin Dose Admin Acetaminophen (Tylenol) 650 mg Q4H PRN ORAL Temp >100.5 03/26/20 07:30 04/19/20 07:29 Benztropine Mesylate (Cogentin) 0.5 mg BID ORAL 03/26/20 09:00 04/19/20 08:59 03/26/20 08:20 Dextrose (Dextrose 50%) 25 ml Q30M PRN IV Hypoglycemia 03/26/20 07:30 06/18/20 00:59 Dextrose (Dextrose 50%) 50 ml Q30M PRN IV Hypoglycemia 03/26/20 07:30 06/18/20 00:59 Dextrose/Sodium Chloride 1,000 ml @ 75 mls/hr [id number] IV 03/26/20 07:30 04/20/20 12:14 Diphenhydramine HCl (Benadryl) 50 mg BID ORAL 03/26/20 09:00 04/19/20 17:59 03/26/20 08:20 Docusate Sodium (Colace) 100 mg DAILY ORAL 03/26/20 09:00 04/19/20 08:59 03/26/20 08:20 Gabapentin (Neurontin) 300 mg THREE TIMES A DAY ORAL 03/26/20 09:00 04/19/20 08:59 03/26/20 08:20 Haloperidol (Haldol) 5 mg BID ORAL 03/26/20 09:00 05/04/20 17:59 03/26/20 08:20 Heparin Sodium (Porcine) (Heparin 5000 units/ml) 5,000 units EVERY 8 HOURS SUBQ 03/26/20 14:00 05/04/20 13:59 Insulin Aspart (NovoLOG) BEFORE MEALS AND HS SUBQ 03/26/20 11:30 06/18/20 06:29 Levothyroxine Sodium (Synthroid) 50 mcg DAILY@0630 ORAL 03/27/20 06:30 04/19/20 06:29 Lorazepam (Ativan) 1 mg Q6H PRN ORAL For Anxiety 03/26/20 07:30 03/27/20 07:29 Metformin HCl (Glucophage) 500 mg BIDBL ORAL 03/26/20 11:30 04/19/20 06:29 Quetiapine Fumarate (SEROqueL) 200 mg BID ORAL 03/26/20 09:00 05/04/20 17:59 03/26/20 08:19 Quetiapine Fumarate (SEROqueL) 400 mg QHS ORAL 03/26/20 21:00 05/04/20 20:59 Sennosides (Senokot) 17.2 mg QHS ORAL 03/26/20 21:00 04/21/20 22:59 Last 24 Hour Vital Signs Date Time Temp Pulse Resp B/P (MAP) Pulse Ox O2 Delivery O2 Flow Rate FiO2 03/26/20 09:00 Room Air 03/26/20 08:00 98.0 93 19 124/76 (92) 96 03/26/20 07:35 97 Nasal Cannula 2.0 28 03/26/20 06:54 98.4 77 19 126/80 (95) 96 03/26/20 04:00 98.5 88 19 125/89 (101) 98 03/26/20 00:00 98.8 88 20 123/83 (96) 98 03/25/20 21:00 Nasal Cannula 2.0 03/25/20 20:00 97.1 66 20 120/70 (87) 94 03/25/20 16:00 79 03/25/20 16:00 97.1 63 20 117/77 (90) 97 03/25/20 12:00 98.6 76 20 130/87 (101) 96 03/25/20 12:00 86 03/25/20 09:00 Nasal Cannula 2.0 03/25/20 08:00 78 03/25/20 08:00 97.9 79 17 113/77 (89) 97 03/25/20 04:00 98.3 63 18 111/80 (90) 96 03/25/20 04:00 84 03/25/20 00:00 96.8 71 18 115/65 (82) 97 03/25/20 00:00 82 03/24/20 21:00 Nasal Cannula 2.0 03/24/20 20:00 109 03/24/20 20:00 98.0 65 18 112/73 (86) 96 03/24/20 16:00 98.7 86 18 103/73 (83) 95 03/24/20 16:00 94 03/24/20 12:00 109 03/24/20 12:00 98.6 109 18 117/77 (90) 96 Intake and Output 03/25/20 03/26/20 19:00 07:00 Intake Total 1635 ml Output Total 600 ml Balance 1035 ml Intake Oral 960 ml IV Total 675 ml Output Urine Total 600 ml # Voids 2 2 Labs Test 03/24/20 06:46 03/25/20 06:45 03/26/20 10:00 White Blood Count 3.9 K/UL (4.8-10.8) 4.6 K/UL (4.8-10.8) 6.1 K/UL (4.8-10.8) Red Blood Count 3.64 M/UL (4.70-6.10) 3.75 M/UL (4.70-6.10) 3.63 M/UL (4.70-6.10) Hemoglobin 10.6 G/DL (14.2-18.0) 11.1 G/DL (14.2-18.0) 10.3 G/DL (14.2-18.0) Hematocrit 29.9 % (42.0-52.0) 31.1 % (42.0-52.0) 29.8 % (42.0-52.0) Mean Corpuscular Volume 82 FL (80-99) 83 FL (80-99) 82 FL (80-99) Mean Corpuscular Hemoglobin 29.3 PG (27.0-31.0) 29.5 PG (27.0-31.0) 28.5 PG (27.0-31.0) Mean Corpuscular Hemoglobin Concent 35.5 G/DL (32.0-36.0) 35.6 G/DL (32.0-36.0) 34.7 G/DL (32.0-36.0) Red Cell Distribution Width 10.9 % (11.6-14.8) 11.0 % (11.6-14.8) 10.8 % (11.6-14.8) Platelet Count 176 K/UL (150-450) 201 K/UL (150-450) 242 K/UL (150-450) Mean Platelet Volume 6.5 FL (6.5-10.1) 6.3 FL (6.5-10.1) 6.5 FL (6.5-10.1) Neutrophils (%) (Auto) % (45.0-75.0) 61.5 % (45.0-75.0) 69.9 % (45.0-75.0) Lymphocytes (%) (Auto) % (20.0-45.0) 27.5 % (20.0-45.0) 22.2 % (20.0-45.0) Monocytes (%) (Auto) % (1.0-10.0) 6.0 % (1.0-10.0) 6.1 % (1.0-10.0) Eosinophils (%) (Auto) % (0.0-3.0) 4.2 % (0.0-3.0) 1.5 % (0.0-3.0) Basophils (%) (Auto) % (0.0-2.0) 0.8 % (0.0-2.0) 0.3 % (0.0-2.0) Differential Total Cells Counted 100 Neutrophils % (Manual) 68 % (45-75) Lymphocytes % (Manual) 22 % (20-45) Monocytes % (Manual) 7 % (1-10) Eosinophils % (Manual) 3 % (0-3) Basophils % (Manual) 0 % (0-2) Band Neutrophils 0 % (0-8) Platelet Estimate Adequate Platelet Morphology Normal Red Blood Cell Morphology Normal Sodium Level 145 MMOL/L (136-145) 147 MMOL/L (136-145) 143 MMOL/L (136-145) Potassium Level 3.6 MMOL/L (3.5-5.1) 3.7 MMOL/L (3.5-5.1) 3.7 MMOL/L (3.5-5.1) Chloride Level 111 MMOL/L (98-107) 111 MMOL/L (98-107) 108 MMOL/L (98-107) Carbon Dioxide Level 27 MMOL/L (21-32) 28 MMOL/L (21-32) 28 MMOL/L (21-32) Anion Gap 7 mmol/L (5-15) 8 mmol/L (5-15) 7 mmol/L (5-15) Blood Urea Nitrogen 6 mg/dL (7-18) 10 mg/dL (7-18) 13 mg/dL (7-18) Creatinine 0.6 MG/DL (0.55-1.30) 0.7 MG/DL (0.55-1.30) 0.7 MG/DL (0.55-1.30) Estimat Glomerular Filtration Rate > 60 mL/min (>60) > 60 mL/min (>60) > 60 mL/min (>60) Glucose Level 94 MG/DL (74-106) 104 MG/DL (74-106) 108 MG/DL (74-106) Calcium Level 8.1 MG/DL (8.5-10.1) 8.4 MG/DL (8.5-10.1) 8.3 MG/DL (8.5-10.1) Ferritin 395 NG/ML (8-388) C-Reactive Protein, Quantitative 5.8 mg/dL (0.00-0.90) Height (Feet): 5 Height (Inches): 6.00 Weight (Pounds): 111 Objective Vitals: reviewed General: NAD, A+O x1 HEENT: nc, at Neck: supple Chest: clear breath sounds bilaterally Cardiovascular: RRR, no s3, s4 Abdomen: soft, nontender, nd Extremities: no cce, normal range of motion Neuro: confused Andry Culp MD March 26, 2020 11:46
--- NOTE | 2020-03-26 12:10 | NUR ---
NURSE NOTES: Covid swab collected from nasopharyngeal and sent down to lab.
--- NOTE | 2020-03-26 12:38 | NUR ---
CASE MANAGEMENT: REVIEW 03/26/20 SI:COVID-19 . ACUTE FEBRILE ILLNESS . COPD 98.0 93 19 124/76 96 % ON 2L NC WBC 4.6 H/H 10.3/29.8 CA+ 8.3 IS:IV D5@75ML/HR IV CEFEPIME Q24HR NEURONTIN PO TID METFORMIN PO BID COGENTIN PO BID SEROQUEL PO 400MG QHS HALDO PO BID \: 4E MED SURG UNIT DCP: GRACIE WHEN X2 COVID TEST PLAN: NEED TWO COVID NEGATIVE TO TRANSFER
--- NOTE | 2020-03-26 14:08 | NUR ---
NURSE NOTES: Patient pulled out IV line. Redirection attempted but patient unable to comprehend, needs consistent reinforcement. Patient gets out of bed and pokes head out of door despite multiple instructions to stay in room due to isolation precautions. Dr. Brandt in to do rounds, received orders to place on bilateral soft wrist restraints for attempting to pull out medical devices. Orders noted and carried out.
--- NOTE | 2020-03-26 15:00 | Infectious Diseases Prog Note ---
Assessment/Plan Assessment/Plan Assessment: Multifocal PNA- 2ry to COVID19 (resident of [place] with large outbreak)- sp 2l NC- now at RA -03/21 CXR: Worsening airspace disease most likely representing pneumonia at the right upper lobe and right lower lobe. Unchanged peripheral patchy airspace opacities at the left base probably also representing pneumonia. -CXR: Patchy right lung opacities suggest multifocal pneumonia. Possible right hilar enlargement versus artifactual prominence due to patient positioning , recommend attention on followup. If there is continued concern, consider CT. Fever; SP Pancytopenia/Lymphocytopenia; SP -u/a neg Hypokalemia COPD Dm2 schizophrenia seizure disorder polyneuropathy hypothyroidism [place] resident (Ellentonhenna Bell) Plan: -Continue to monitor off abx -03/25 SP Cefepime #/ -03/23 SP IV Vancomycin #4 -03/19 sp Flagyl x1 -f/u cx -Monitor CBC/CMP, temperatures -COVID19 isolation -aspiration precautions Thank you for consulting [facility]. Will continue to follow along with you. Discussed with RN. Subjective Allergies: Coded Allergies: No Known Allergies (Unverified , 03/19/20) Subjective afebrile at leukopenia resolved Bcx NTD Objective Vital Signs Last 24 Hour Vital Signs Date Time Temp Pulse Resp B/P (MAP) Pulse Ox O2 Delivery O2 Flow Rate FiO2 03/26/20 12:00 97.5 89 18 129/81 (97) 97 03/26/20 09:00 Room Air 03/26/20 08:00 98.0 93 19 124/76 (92) 96 03/26/20 07:35 97 Nasal Cannula 2.0 28 03/26/20 06:54 98.4 77 19 126/80 (95) 96 03/26/20 04:00 98.5 88 19 125/89 (101) 98 03/26/20 00:00 98.8 88 20 123/83 (96) 98 03/25/20 21:00 Nasal Cannula 2.0 03/25/20 20:00 97.1 66 20 120/70 (87) 94 03/25/20 16:00 79 03/25/20 16:00 97.1 63 20 117/77 (90) 97 Height (Feet): 5 Height (Inches): 6.00 Weight (Pounds): 111 Objective not examined to limit [id number] exposure Laboratory Tests Test 03/26/20 10:00 White Blood Count 6.1 K/UL (4.8-10.8) Red Blood Count 3.63 M/UL (4.70-6.10) L Hemoglobin 10.3 G/DL (14.2-18.0) L Hematocrit 29.8 % (42.0-52.0) L Mean Corpuscular Volume 82 FL (80-99) Mean Corpuscular Hemoglobin 28.5 PG (27.0-31.0) Mean Corpuscular Hemoglobin Concent 34.7 G/DL (32.0-36.0) Red Cell Distribution Width 10.8 % (11.6-14.8) L Platelet Count 242 K/UL (150-450) Mean Platelet Volume 6.5 FL (6.5-10.1) Neutrophils (%) (Auto) 69.9 % (45.0-75.0) Lymphocytes (%) (Auto) 22.2 % (20.0-45.0) Monocytes (%) (Auto) 6.1 % (1.0-10.0) Eosinophils (%) (Auto) 1.5 % (0.0-3.0) Basophils (%) (Auto) 0.3 % (0.0-2.0) Sodium Level 143 MMOL/L (136-145) Potassium Level 3.7 MMOL/L (3.5-5.1) Chloride Level 108 MMOL/L (98-107) H Carbon Dioxide Level 28 MMOL/L (21-32) Anion Gap 7 mmol/L (5-15) Blood Urea Nitrogen 13 mg/dL (7-18) Creatinine 0.7 MG/DL (0.55-1.30) Estimat Glomerular Filtration Rate > 60 mL/min (>60) Glucose Level 108 MG/DL (74-106) H Calcium Level 8.3 MG/DL (8.5-10.1) L Current Medications Medications (Trade) Dose Ordered Sig/Deric Route PRN Reason Start Time Stop Time Status Last Admin Dose Admin Acetaminophen (Tylenol) 650 mg Q4H PRN ORAL Temp >100.5 03/26/20 07:30 04/19/20 07:29 Benztropine Mesylate (Cogentin) 0.5 mg BID ORAL 03/26/20 09:00 04/19/20 08:59 03/26/20 08:20 Dextrose (Dextrose 50%) 25 ml Q30M PRN IV Hypoglycemia 03/26/20 07:30 06/18/20 00:59 Dextrose (Dextrose 50%) 50 ml Q30M PRN IV Hypoglycemia 03/26/20 07:30 06/18/20 00:59 Dextrose/Sodium Chloride 1,000 ml @ 75 mls/hr [id number] IV 03/26/20 07:30 04/20/20 12:14 Diphenhydramine HCl (Benadryl) 50 mg BID ORAL 03/26/20 09:00 04/19/20 17:59 03/26/20 08:20 Docusate Sodium (Colace) 100 mg DAILY ORAL 03/26/20 09:00 04/19/20 08:59 03/26/20 08:20 Gabapentin (Neurontin) 300 mg THREE TIMES A DAY ORAL 03/26/20 09:00 04/19/20 08:59 03/26/20 12:17 Haloperidol (Haldol) 10 mg BID ORAL 03/26/20 18:00 05/04/20 17:59 Heparin Sodium (Porcine) (Heparin 5000 units/ml) 5,000 units EVERY 8 HOURS SUBQ 03/26/20 14:00 05/04/20 13:59 03/26/20 14:19 Insulin Aspart (NovoLOG) BEFORE MEALS AND HS SUBQ 03/26/20 11:30 06/18/20 06:29 Levothyroxine Sodium (Synthroid) 50 mcg DAILY@0630 ORAL 03/27/20 06:30 04/19/20 06:29 Lorazepam (Ativan) 1 mg Q6H PRN ORAL For Anxiety 03/26/20 07:30 03/27/20 07:29 Metformin HCl (Glucophage) 500 mg BIDBL ORAL 03/26/20 11:30 04/19/20 06:29 03/26/20 12:16 Quetiapine Fumarate (SEROqueL) 200 mg BID ORAL 03/26/20 09:00 05/04/20 17:59 03/26/20 08:19 Quetiapine Fumarate (SEROqueL) 400 mg QHS ORAL 03/26/20 21:00 05/04/20 20:59 Sennosides (Senokot) 17.2 mg QHS ORAL 03/26/20 21:00 04/21/20 22:59 Sandra Whitney M.D. March 26, 2020 15:00
--- NOTE | 2020-03-26 18:59 | Progress Note ---
DATE: 03/26/2020 SUBJECTIVE: This is a 74-year-old male with acute febrile illness, rule out COVID-19, very irritable, confused, disorganized. He has got no plans for his own self-care. He has got feelings of helplessness, hopelessness, low energy, poor appetite, and lack of interest in activity. That is why, he does require acute psychiatric inpatient treatment at this time. He does have some irritability, confusion, and disorganized thought process. the patient is very confused, disorganized, mood labile, and he has got no plans for his own self-care. He is very agitated, extremely mood labile. MENTAL STATUS EXAMINATION: This is a 74-year-old male. Appearance is disheveled. Attitude, irritable and agitated. Affect, guarded and restricted. Intellect poor. Mood, depressed and anxious. Motor activity, psychomotor agitation. Insight and judgment are poor. DIAGNOSIS: Paranoid schizophrenia with acute exacerbation. PLAN: Treat him with Seroquel 200 mg twice a day and 400 mg nightly and continue Ativan as needed. Twenty minutes of reality-based supportive psychotherapy provided. Chart was reviewed. Discussed with staff. Seen and assessed in his room. Cristina Brandt M.D. DR: DOMINICK JOB#: [id number] CC:
--- NOTE | 2020-03-26 19:15 | NUR ---
NURSE NOTES: RECEIVED PATIENT FROM JACOB HUBER. PATIENT IS ASLEEP, ON ROOM AIR, NO ACUTE DISTRESS NOTED. IV ON RIGHT FA INTACT AND PATENT. BILATERAL SOFT WRIST RESTRAINTS NOTED, PULSES PRESENT, NO REDNESS. BED IS LOCKED AND LOW, BED ALARMS ACTIVE, SIDE RAILS UP X2 AND CALL LIGHT IS WITHIN REACH. WILL CONTINUE TO MONITOR.
--- NOTE | 2020-03-26 19:31 | NUR ---
HAND-OFF: Report given to Clarissa RN. Endorsed that covid swab sample was taken and sent to labs today. Bilateral wrist restraints on, good circulation noted, pulses palpable. PIV intact.
[2020-03-26] MEDS: Sennosides 8.6mg tab ORAL SCH ×2 (21:00→22:04)
[2020-03-27] VITALS: BP 125/77
[2020-03-27 04:00] VITALS: BP 118/72
[2020-03-27] MEDS: NovoLOG Insulin Flexpen SUBQ SCH ×4 (06:30→20:40)
[2020-03-27 06:31] LABS: BASOPHILS % (AUTO) 2.5 % (0.0-2.0); EOSINOPHILS % (AUTO) 4.1 % (0.0-3.0); HEMATOCRIT 30.6 % (42.0-52.0); HEMOGLOBIN 10.6 G/DL (14.2-18.0); LYMPHOCYTES % (AUTO) 29.7 % (20.0-45.0); MEAN CORPUSCULAR VOLUME 83 FL (80-99); MONOCYTES % (AUTO) 8.3 % (1.0-10.0); NEUTROPHILS % (AUTO) 55.4 % (45.0-75.0); PLATELET COUNT 240 K/UL (150-450); RED BLOOD COUNT 3.68 M/UL (4.70-6.10); RED CELL DISTRIBUTION WIDTH 10.9 % (11.6-14.8); WHITE BLOOD COUNT 5.8 K/UL (4.8-10.8)
[2020-03-27 06:32] LABS: BLOOD UREA NITROGEN 7 mg/dL (7-18); CALCIUM 8.4 MG/DL (8.5-10.1); CHLORIDE 108 MMOL/L (98-107); CREATININE 0.7 MG/DL (0.55-1.30); POTASSIUM 3.8 MMOL/L (3.5-5.1); SODIUM 146 MMOL/L (136-145)
[2020-03-27 06:44] LABS: CARBON DIOXIDE 31 MMOL/L (21-32)
[2020-03-27] MEDS: Heparin 5000 units/ml inj SUBQ SCH ×3 (07:03→21:28)
[2020-03-27] MEDS: metFORMIN 500mg tab ORAL SCH ×2 (07:03→12:31)
--- NOTE | 2020-03-27 07:10 | NUR ---
NURSE NOTES received in bed, patient awake,confused, not in distress.RA ,Denies pain.on fall ,and Isolation precautions maintained. on bilateral soft wrist restraint on,Bed low and locked, siderails up x2, zone alarms on , instructed to use call light for assistance and placed within reach. Will continue to monitor. kimberly prasad
--- NOTE | 2020-03-27 07:29 | NUR ---
HAND-OFF: Report given to JACOB Reddy.
[2020-03-27 08:00] VITALS: BP 116/71
[2020-03-27] MEDS: Benztropine 1mg tab ORAL SCH ×2 (08:40→17:20)
[2020-03-27] MEDS: Docusate 100mg cap ORAL SCH (08:41)
[2020-03-27] MEDS: QUEtiapine 200mg tab ORAL SCH ×3 (08:41→20:54)
--- NOTE | 2020-03-27 09:48 | General Progress Note ---
Assessment/Plan Problem List: (1) UTI (urinary tract infection) ICD Codes: N39.0 - Urinary tract infection, site not specified SNOMED: 75813768 (2) Diabetes ICD Codes: E11.9 - Type 2 diabetes mellitus without complications SNOMED: 06789904 (3) Seizure ICD Codes: R56.9 - Unspecified convulsions SNOMED: 47528083 (4) Polyneuropathy in diabetes ICD Codes: E11.42 - Type 2 diabetes mellitus with diabetic polyneuropathy SNOMED: 14427324, 97800196 (5) Hypothyroid ICD Codes: E03.9 - Hypothyroidism, unspecified SNOMED: 54761826 (6) Weak ICD Codes: R53.1 - Weakness SNOMED: 81312726 (7) COPD (chronic obstructive pulmonary disease) ICD Codes: J44.9 - Chronic obstructive pulmonary disease, unspecified SNOMED: 72450535 (8) Acute febrile illness ICD Codes: R50.9 - Fever, unspecified SNOMED: 169031586 (9) Suspected 2019 novel coronavirus infection ICD Codes: Z20.828 - Contact with and (suspected) exposure to other viral communicable diseases SNOMED: 080573639 (10) Pancytopenia ICD Codes: D61.818 - Other pancytopenia SNOMED: 331762121 Status: unchanged Assessment/Plan: o2 pulm tx abx pt diet cbc bmp am heme eval aru eval Subjective Constitutional: Reports: weakness Allergies: Coded Allergies: No Known Allergies (Unverified , 03/19/20) All Systems: reviewed and negative except above Subjective calm in room Objective Last 24 Hour Vital Signs Date Time Temp Pulse Resp B/P (MAP) Pulse Ox O2 Delivery O2 Flow Rate FiO2 03/27/20 09:00 Room Air 03/27/20 08:00 97.8 70 18 116/71 (86) 97 03/27/20 04:00 98.4 72 18 118/72 (87) 95 03/27/20 00:30 96 Nasal Cannula 2.0 28 03/27/20 00:00 98.4 66 18 125/77 (93) 96 03/26/20 21:00 Room Air 03/26/20 20:00 98.6 80 18 111/67 (82) 96 03/26/20 16:00 97.9 88 18 131/83 (99) 98 03/26/20 12:00 97.5 89 18 129/81 (97) 97 Intake and Output 03/26/20 03/27/20 19:00 07:00 Intake Total 1125 ml 765 ml Output Total 900 ml Balance 1125 ml -135 ml Intake Oral 300 ml 240 ml IV Total 825 ml 525 ml Output Urine Total 900 ml # Voids 3 2 Laboratory Tests 03/26/20 10:00: White Blood Count 6.1, Red Blood Count 3.63L, Hemoglobin 10.3L, Hematocrit 29.8L , Mean Corpuscular Volume 82, Mean Corpuscular Hemoglobin 28.5, Mean Corpuscular Hemoglobin Concent 34.7, Red Cell Distribution Width 10.8L, Platelet Count 242, Mean Platelet Volume 6.5, Neutrophils (%) (Auto) 69.9, Lymphocytes (%) (Auto) 22.2, Monocytes (%) (Auto) 6.1, Eosinophils (%) (Auto) 1.5, Basophils (%) (Auto) 0.3, Sodium Level 143, Potassium Level 3.7, Chloride Level 108H, Carbon Dioxide Level 28, Anion Gap 7, Blood Urea Nitrogen 13, Creatinine 0.7, Estimat Glomerular Filtration Rate > 60, Glucose Level 108H, Calcium Level 8.3L 03/27/20 04:00: White Blood Count 5.8, Red Blood Count 3.68L, Hemoglobin 10.6L, Hematocrit 30.6L , Mean Corpuscular Volume 83, Mean Corpuscular Hemoglobin 28.9, Mean Corpuscular Hemoglobin Concent 34.7, Red Cell Distribution Width 10.9L, Platelet Count 240, Mean Platelet Volume 5.8L, Neutrophils (%) (Auto) 55.4, Lymphocytes (%) (Auto) 29.7, Monocytes (%) (Auto) 8.3, Eosinophils (%) (Auto) 4.1H, Basophils (%) (Auto) 2.5H, Sodium Level 146H, Potassium Level 3.8, Chloride Level 108H, Carbon Dioxide Level 31, Blood Urea Nitrogen 7, Creatinine 0.7, Estimat Glomerular Filtration Rate > 60, Glucose Level 79, Calcium Level 8.4L Height (Feet): 5 Height (Inches): 6.00 Weight (Pounds): 111 General Appearance: lethargic EENT: normal ENT inspection Neck: normal alignment Cardiovascular: normal rate, regular rhythm Respiratory/Chest: no respiratory distress, no accessory muscle use Extremities: normal inspection Skin: normal pigmentation Ramone Larsen DO March 27, 2020 09:48
--- NOTE | 2020-03-27 10:50 | Pulmonology Progress Note ---
Subjective Interval Events: None new Constitutional: Reports: no symptoms HEENT: Repors: no symptoms Respiratory: Reports: no symptoms Cardiovascular: Reports: no symptoms Allergies: Coded Allergies: No Known Allergies (Unverified , 03/19/20) All Systems: reviewed and negative except above Objective Last 24 Hour Vital Signs Date Time Temp Pulse Resp B/P (MAP) Pulse Ox O2 Delivery O2 Flow Rate FiO2 03/27/20 09:00 Room Air 03/27/20 08:00 97.8 70 18 116/71 (86) 97 03/27/20 04:00 98.4 72 18 118/72 (87) 95 03/27/20 00:30 96 Nasal Cannula 2.0 28 03/27/20 00:00 98.4 66 18 125/77 (93) 96 03/26/20 21:00 Room Air 03/26/20 20:00 98.6 80 18 111/67 (82) 96 03/26/20 16:00 97.9 88 18 131/83 (99) 98 03/26/20 12:00 97.5 89 18 129/81 (97) 97 Intake and Output 03/26/20 03/27/20 19:00 07:00 Intake Total 1125 ml 840 ml Output Total 900 ml Balance 1125 ml -60 ml Intake Oral 300 ml 240 ml IV Total 825 ml 600 ml Output Urine Total 900 ml # Voids 3 2 General Appearance: no acute distress HEENT: normocephalic Respiratory/Chest: chest wall non-tender Cardiovascular: normal peripheral pulses Abdomen: normal bowel sounds Microbiology Date/Time Source Procedure Growth Status 03/25/20 12:00 Nasopharynx Coronavirus COVID-19 PCR ([facility]) - Final Complete Laboratory Tests 03/27/20 04:00: White Blood Count 5.8, Red Blood Count 3.68L, Hemoglobin 10.6L, Hematocrit 30.6L , Mean Corpuscular Volume 83, Mean Corpuscular Hemoglobin 28.9, Mean Corpuscular Hemoglobin Concent 34.7, Red Cell Distribution Width 10.9L, Platelet Count 240, Mean Platelet Volume 5.8L, Neutrophils (%) (Auto) 55.4, Lymphocytes (%) (Auto) 29.7, Monocytes (%) (Auto) 8.3, Eosinophils (%) (Auto) 4.1H, Basophils (%) (Auto) 2.5H, Sodium Level 146H, Potassium Level 3.8, Chloride Level 108H, Carbon Dioxide Level 31, Blood Urea Nitrogen 7, Creatinine 0.7, Estimat Glomerular Filtration Rate > 60, Glucose Level 79, Calcium Level 8.4L Current Medications Medications (Trade) Dose Ordered Sig/Deric Route PRN Reason Start Time Stop Time Status Last Admin Dose Admin Acetaminophen (Tylenol) 650 mg Q4H PRN ORAL Temp >100.5 03/26/20 07:30 04/19/20 07:29 Benztropine Mesylate (Cogentin) 2 mg BID ORAL 03/27/20 18:00 04/19/20 08:59 Dextrose (Dextrose 50%) 25 ml Q30M PRN IV Hypoglycemia 03/26/20 07:30 06/18/20 00:59 Dextrose (Dextrose 50%) 50 ml Q30M PRN IV Hypoglycemia 03/26/20 07:30 06/18/20 00:59 Dextrose/Sodium Chloride 1,000 ml @ 75 mls/hr [id number] IV 03/26/20 07:30 04/20/20 12:14 03/26/20 22:06 Diphenhydramine HCl (Benadryl) 50 mg BID ORAL 03/26/20 09:00 04/19/20 17:59 03/27/20 08:43 Docusate Sodium (Colace) 100 mg DAILY ORAL 03/26/20 09:00 04/19/20 08:59 03/27/20 08:41 Gabapentin (Neurontin) 300 mg THREE TIMES A DAY ORAL 03/26/20 09:00 04/19/20 08:59 03/27/20 08:41 Haloperidol (Haldol) 10 mg BID ORAL 03/26/20 18:00 05/04/20 17:59 03/27/20 08:40 Heparin Sodium (Porcine) (Heparin 5000 units/ml) 5,000 units EVERY 8 HOURS SUBQ 03/26/20 14:00 05/04/20 13:59 03/27/20 07:03 Insulin Aspart (NovoLOG) BEFORE MEALS AND HS SUBQ 03/26/20 11:30 06/18/20 06:29 Levothyroxine Sodium (Synthroid) 50 mcg DAILY@0630 ORAL 03/27/20 06:30 04/19/20 06:29 03/27/20 07:03 Metformin HCl (Glucophage) 500 mg BIDBL ORAL 03/26/20 11:30 04/19/20 06:29 03/27/20 07:03 Quetiapine Fumarate (SEROqueL) 200 mg BID ORAL 03/26/20 09:00 05/04/20 17:59 03/27/20 08:41 Quetiapine Fumarate (SEROqueL) 400 mg QHS ORAL 03/26/20 21:00 05/04/20 20:59 Sennosides (Senokot) 17.2 mg QHS ORAL 03/26/20 21:00 04/21/20 22:59 Assessment/Plan Assessment/Plan IMPRESSION: 1. Right lung pneumonia. 2. [facility] resident. 3. Psych disorder. 4. Hypothyroidism. DISCUSSION: Continue broad-spectrum antibiotics. Continue medications. Continue oxygen and pulmonary hygiene. Currently saturating well on 2L/min O2 alternating with RA Is positive COVID-19. I will follow carefully. Neymar Storm Omar Syed MD March 27, 2020 10:50
[2020-03-27] MEDS: D5NS 1,000 ML IV SCH ×2 (11:08→20:55)
[2020-03-27 12:00] VITALS: BP 110/57
[2020-03-27] MEDS ORDERED: D5NS 1000ml IV ONE (14:26)
[2020-03-27 16:00] VITALS: BP 110/56
--- NOTE | 2020-03-27 17:14 | Progress Note ---
DATE: 03/27/2020 SUBJECTIVE: This is a 74-year-old male patient who is confused, disorganized. He has got no logical plan for his own self-care. He has got feelings of helplessness, hopelessness, low energy, poor appetite, and loss of interest in activity, extremely mood labile, agitated, irritable. The reason why he is in the hospital because of rule out COVID-19, urinary tract infection, COPD, diabetes, seizure disorder, neuropathy. MENTAL STATUS EXAMINATION: This is a 74-year-old male. Appearance is disheveled. Attitude, irritable and agitated. Affect, guarded and restricted. Intellect poor. Mood, depressed and anxious. Motor activity, psychomotor agitation. Attention span is poor. Orientation x2. Speech is pressured. Thought process, disorganized and illogical. Insight and judgment poor. DIAGNOSIS: Paranoid schizophrenia with acute exacerbation. PLAN: Treat him with Seroquel 200 twice a day and 400 at bedtime, Haldol now at 10 mg twice a day and Ativan 1 every 6 hours p.r.n. anxiety and agitation, Neurontin 300 mg three times a day. Also, I am going to increase his Cogentin to 2 mg twice a day since his Haldol has been increased. 20 minutes of cognitive behavioral therapy will help him identify his automatic negative thoughts and help him convert his negative thoughts to more positive thoughts to reduce depression, anxiety, and mood lability. 20 minutes of reality-based supportive psychotherapy provided. Chart reviewed. Discussed with staff. Seen and assessed in his room. Cristina Brandt M.D. DR: DOMINICK JOB#: [id number] CC:
--- NOTE | 2020-03-27 19:08 | NUR ---
HAND-OFF: Report given to Ms Aguirre resting comfortably in bed, free from injury kimberly prasad.
--- NOTE | 2020-03-27 19:37 | NUR ---
NURSE NOTES: Patient is in bed resting. No signs of distress or SOB. IV intact and patent. Bed locked and in lowest position. call light in reach. Will continue to monitor the patient.
[2020-03-27 20:00] VITALS: BP 117/77
--- NOTE | 2020-03-27 20:40 | Infectious Diseases Prog Note ---
Assessment/Plan Assessment/Plan Assessment: Multifocal PNA- 2ry to COVID19 (resident of [place] with large outbreak)- sp 2l NC- now at RA -03/21 CXR: Worsening airspace disease most likely representing pneumonia at the right upper lobe and right lower lobe. Unchanged peripheral patchy airspace opacities at the left base probably also representing pneumonia. -CXR: Patchy right lung opacities suggest multifocal pneumonia. Possible right hilar enlargement versus artifactual prominence due to patient positioning , recommend attention on followup. If there is continued concern, consider CT. Fever; SP Pancytopenia/Lymphocytopenia; SP -u/a neg Hypokalemia COPD Dm2 schizophrenia seizure disorder polyneuropathy hypothyroidism [place] resident ([place]) Plan: -Continue to monitor off abx -03/25 SP Cefepime #/ -03/23 SP IV Vancomycin #4 -03/19 sp Flagyl x1 -f/u cx -Monitor CBC/CMP, temperatures -COVID19 isolation -aspiration precautions Thank you for consulting [facility]. Will continue to follow along with you. Discussed with RN. Subjective Allergies: Coded Allergies: No Known Allergies (Unverified , 03/19/20) Subjective Afebrile. RA. doing well per RN Objective Vital Signs Last 24 Hour Vital Signs Date Time Temp Pulse Resp B/P (MAP) Pulse Ox O2 Delivery O2 Flow Rate FiO2 03/27/20 20:14 Room Air 03/27/20 16:00 98.2 83 17 110/56 (74) 95 03/27/20 12:00 98.1 74 18 110/57 (74) 97 03/27/20 09:00 Room Air 03/27/20 08:00 97.8 70 18 116/71 (86) 97 03/27/20 04:00 98.4 72 18 118/72 (87) 95 03/27/20 00:30 96 Nasal Cannula 2.0 28 03/27/20 00:00 98.4 66 18 125/77 (93) 96 03/26/20 21:00 Room Air Height (Feet): 5 Height (Inches): 6.00 Weight (Pounds): 111 Objective Pt was not seen to limit COVID exposure and conserve PPE Microbiology Date/Time Source Procedure Growth Status 03/25/20 12:00 Nasopharynx Coronavirus COVID-19 PCR ([facility]) - Final Complete Laboratory Tests Test 03/27/20 04:00 White Blood Count 5.8 K/UL (4.8-10.8) Red Blood Count 3.68 M/UL (4.70-6.10) L Hemoglobin 10.6 G/DL (14.2-18.0) L Hematocrit 30.6 % (42.0-52.0) L Mean Corpuscular Volume 83 FL (80-99) Mean Corpuscular Hemoglobin 28.9 PG (27.0-31.0) Mean Corpuscular Hemoglobin Concent 34.7 G/DL (32.0-36.0) Red Cell Distribution Width 10.9 % (11.6-14.8) L Platelet Count 240 K/UL (150-450) Mean Platelet Volume 5.8 FL (6.5-10.1) L Neutrophils (%) (Auto) 55.4 % (45.0-75.0) Lymphocytes (%) (Auto) 29.7 % (20.0-45.0) Monocytes (%) (Auto) 8.3 % (1.0-10.0) Eosinophils (%) (Auto) 4.1 % (0.0-3.0) H Basophils (%) (Auto) 2.5 % (0.0-2.0) H Sodium Level 146 MMOL/L (136-145) H Potassium Level 3.8 MMOL/L (3.5-5.1) Chloride Level 108 MMOL/L (98-107) H Carbon Dioxide Level 31 MMOL/L (21-32) Blood Urea Nitrogen 7 mg/dL (7-18) Creatinine 0.7 MG/DL (0.55-1.30) Estimat Glomerular Filtration Rate > 60 mL/min (>60) Glucose Level 79 MG/DL (74-106) Calcium Level 8.4 MG/DL (8.5-10.1) L Current Medications Medications (Trade) Dose Ordered Sig/Deric Route PRN Reason Start Time Stop Time Status Last Admin Dose Admin Acetaminophen (Tylenol) 650 mg Q4H PRN ORAL Temp >100.5 03/26/20 07:30 04/19/20 07:29 Benztropine Mesylate (Cogentin) 2 mg BID ORAL 03/27/20 18:00 04/19/20 08:59 03/27/20 17:20 Dextrose (Dextrose 50%) 25 ml Q30M PRN IV Hypoglycemia 03/26/20 07:30 06/18/20 00:59 Dextrose (Dextrose 50%) 50 ml Q30M PRN IV Hypoglycemia 03/26/20 07:30 06/18/20 00:59 Dextrose/Sodium Chloride 1,000 ml @ 75 mls/hr [id number] IV 03/26/20 07:30 04/20/20 12:14 03/27/20 11:08 Diphenhydramine HCl (Benadryl) 50 mg BID ORAL 03/26/20 09:00 04/19/20 17:59 03/27/20 17:18 Docusate Sodium (Colace) 100 mg DAILY ORAL 03/26/20 09:00 04/19/20 08:59 03/27/20 08:41 Gabapentin (Neurontin) 300 mg THREE TIMES A DAY ORAL 03/26/20 09:00 04/19/20 08:59 03/27/20 17:18 Haloperidol (Haldol) 10 mg BID ORAL 03/26/20 18:00 05/04/20 17:59 03/27/20 17:18 Heparin Sodium (Porcine) (Heparin 5000 units/ml) 5,000 units EVERY 8 HOURS SUBQ 03/26/20 14:00 05/04/20 13:59 03/27/20 07:03 Insulin Aspart (NovoLOG) BEFORE MEALS AND HS SUBQ 03/26/20 11:30 06/18/20 06:29 Levothyroxine Sodium (Synthroid) 50 mcg DAILY@0630 ORAL 03/27/20 06:30 04/19/20 06:29 03/27/20 07:03 Metformin HCl (Glucophage) 500 mg BIDBL ORAL 03/26/20 11:30 04/19/20 06:29 03/27/20 12:31 Quetiapine Fumarate (SEROqueL) 200 mg BID ORAL 03/26/20 09:00 05/04/20 17:59 03/27/20 17:18 Quetiapine Fumarate (SEROqueL) 400 mg QHS ORAL 03/26/20 21:00 05/04/20 20:59 Sennosides (Senokot) 17.2 mg QHS ORAL 5/8/20 21:00 04/21/20 22:59 Santos Howell MD March 27, 2020 20:40
[2020-03-27] MEDS: Sennosides 8.6mg tab ORAL SCH (20:54)
--- NOTE | 2020-03-27 21:32 | NUR ---
NURSE NOTES: Patient refused all PM medication despite explaining the risks and benefits. Will continue to monitor.
[2020-03-28] VITALS: BP 108/76
[2020-03-28 04:00] VITALS: BP 108/65
[2020-03-28] MEDS: NovoLOG Insulin Flexpen SUBQ SCH ×4 (05:52→20:34)
[2020-03-28] MEDS: metFORMIN 500mg tab ORAL SCH ×2 (06:03→11:13)
[2020-03-28] MEDS: Heparin 5000 units/ml inj SUBQ SCH ×3 (06:03→21:44)
--- NOTE | 2020-03-28 07:20 | NUR ---
NURSE NOTES received patient in bed awake,alert oriented not in distress.on RA ,denies pain or discomfort, IVF patent and infusing well, on fall and isolation precaution observed and maintained ,Bed low and locked, siderails up x2, zone alarms on , instructed to use call light for assistance and placed within reach. Will continue to monitor. kimberly prasad
[2020-03-28 07:26] LABS: ANION GAP 7 mmol/L (5-15); BLOOD UREA NITROGEN 5 mg/dL (7-18); CARBON DIOXIDE 31 MMOL/L (21-32); CHLORIDE 108 MMOL/L (98-107); CREATININE 0.6 MG/DL (0.55-1.30); POTASSIUM 3.3 MMOL/L (3.5-5.1); SODIUM 146 MMOL/L (136-145)
[2020-03-28 07:29] LABS: HEMATOCRIT 29.7 % (42.0-52.0); HEMOGLOBIN 10.5 G/DL (14.2-18.0); MEAN CORPUSCULAR VOLUME 82 FL (80-99); PLATELET COUNT 255 K/UL (150-450); RED BLOOD COUNT 3.61 M/UL (4.70-6.10); WHITE BLOOD COUNT 6.1 K/UL (4.8-10.8)
--- NOTE | 2020-03-28 07:35 | NUR ---
HAND-OFF: Report given to JACOB Lundberg.
[2020-03-28 08:00] VITALS: BP 121/81
[2020-03-28] MEDS: Docusate 100mg cap ORAL SCH (08:22)
[2020-03-28] MEDS: Benztropine 1mg tab ORAL SCH ×2 (08:22→17:28)
[2020-03-28] MEDS: QUEtiapine 200mg tab ORAL SCH ×3 (08:23→20:34)
--- NOTE | 2020-03-28 09:30 | Pulmonology Progress Note ---
Subjective Interval Events: None new Constitutional: Reports: no symptoms HEENT: Repors: no symptoms Respiratory: Reports: no symptoms Cardiovascular: Reports: no symptoms Allergies: Coded Allergies: No Known Allergies (Unverified , 03/19/20) All Systems: reviewed and negative except above Objective Last 24 Hour Vital Signs Date Time Temp Pulse Resp B/P (MAP) Pulse Ox O2 Delivery O2 Flow Rate FiO2 03/28/20 08:30 Room Air 03/28/20 08:00 97.9 87 17 121/81 (94) 95 03/28/20 04:00 97.5 68 18 108/65 (79) 95 03/28/20 00:00 97.0 77 20 108/76 (87) 99 03/27/20 20:14 Room Air 03/27/20 20:00 97.0 84 20 117/77 (90) 94 03/27/20 16:00 98.2 83 17 110/56 (74) 95 03/27/20 12:00 98.1 74 18 110/57 (74) 97 Intake and Output 03/27/20 03/28/20 19:00 07:00 Intake Total 1600 ml 435 ml Output Total 900 ml Balance 700 ml 435 ml Intake Oral 700 ml IV Total 900 ml 75 ml Other 360 ml Output Urine Total 900 ml # Voids 2 4 General Appearance: no acute distress HEENT: normocephalic Respiratory/Chest: chest wall non-tender Cardiovascular: normal peripheral pulses Abdomen: normal bowel sounds Microbiology Date/Time Source Procedure Growth Status 03/26/20 12:00 Nasopharynx Coronavirus COVID-19 PCR ([facility]) - Final Complete 03/25/20 12:00 Nasopharynx Coronavirus COVID-19 PCR ([facility]) - Final Complete Laboratory Tests 03/28/20 05:30: White Blood Count 6.1, Red Blood Count 3.61L, Hemoglobin 10.5L, Hematocrit 29.7L , Mean Corpuscular Volume 82, Mean Corpuscular Hemoglobin 29.1, Mean Corpuscular Hemoglobin Concent 35.4, Red Cell Distribution Width 11.0L, Platelet Count 255, Mean Platelet Volume 6.1L, Neutrophils (%) (Auto) , Lymphocytes (%) (Auto) , Monocytes (%) (Auto) , Eosinophils (%) (Auto) , Basophils (%) (Auto) , Neutrophils % (Manual) [Pending], Lymphocytes % (Manual) [Pending], Platelet Estimate [Pending], Platelet Morphology [Pending], Sodium Level 146H, Potassium Level 3.3L, Chloride Level 108H, Carbon Dioxide Level 31, Anion Gap 7, Blood Urea Nitrogen 5L, Creatinine 0.6, Estimat Glomerular Filtration Rate > 60, Glucose Level 96, Calcium Level 8.0L Current Medications Medications (Trade) Dose Ordered Sig/Deric Route PRN Reason Start Time Stop Time Status Last Admin Dose Admin Acetaminophen (Tylenol) 650 mg Q4H PRN ORAL Temp >100.5 03/26/20 07:30 04/19/20 07:29 Benztropine Mesylate (Cogentin) 2 mg BID ORAL 03/27/20 18:00 04/19/20 08:59 03/28/20 08:22 Dextrose (Dextrose 50%) 25 ml Q30M PRN IV Hypoglycemia 03/26/20 07:30 06/18/20 00:59 Dextrose (Dextrose 50%) 50 ml Q30M PRN IV Hypoglycemia 03/26/20 07:30 06/18/20 00:59 Dextrose/Sodium Chloride 1,000 ml @ 75 mls/hr [id number] IV 03/26/20 07:30 04/20/20 12:14 03/27/20 20:55 Diphenhydramine HCl (Benadryl) 50 mg BID ORAL 03/26/20 09:00 04/19/20 17:59 03/28/20 08:22 Docusate Sodium (Colace) 100 mg DAILY ORAL 03/26/20 09:00 04/19/20 08:59 03/28/20 08:22 Gabapentin (Neurontin) 300 mg THREE TIMES A DAY ORAL 03/26/20 09:00 04/19/20 08:59 03/28/20 08:22 Haloperidol (Haldol) 10 mg BID ORAL 03/26/20 18:00 05/04/20 17:59 03/28/20 08:22 Heparin Sodium (Porcine) (Heparin 5000 units/ml) 5,000 units EVERY 8 HOURS SUBQ 03/26/20 14:00 05/04/20 13:59 03/27/20 07:03 Insulin Aspart (NovoLOG) BEFORE MEALS AND HS SUBQ 03/26/20 11:30 06/18/20 06:29 Levothyroxine Sodium (Synthroid) 50 mcg DAILY@0630 ORAL 03/27/20 06:30 04/19/20 06:29 03/27/20 07:03 Metformin HCl (Glucophage) 500 mg BIDBL ORAL 03/26/20 11:30 04/19/20 06:29 03/27/20 12:31 Quetiapine Fumarate (SEROqueL) 200 mg BID ORAL 03/26/20 09:00 05/04/20 17:59 03/28/20 08:23 Quetiapine Fumarate (SEROqueL) 400 mg QHS ORAL 03/26/20 21:00 05/04/20 20:59 Sennosides (Senokot) 17.2 mg QHS ORAL 03/26/20 21:00 04/21/20 22:59 Assessment/Plan Assessment/Plan IMPRESSION: 1. Right lung pneumonia. 2. [facility] resident. 3. Psych disorder. 4. Hypothyroidism. DISCUSSION: Continue broad-spectrum antibiotics. Continue medications. Continue oxygen and pulmonary hygiene. Currently saturating well on 2L/min O2 alternating with RA Is positive COVID-19. I will follow carefully. Cedric Benítez M.D. Cedric Benítez MD March 28, 2020 09:30
--- NOTE | 2020-03-28 10:24 | General Progress Note ---
Assessment/Plan Problem List: (1) UTI (urinary tract infection) ICD Codes: N39.0 - Urinary tract infection, site not specified SNOMED: 51307621 (2) Diabetes ICD Codes: E11.9 - Type 2 diabetes mellitus without complications SNOMED: 03644164 (3) Seizure ICD Codes: R56.9 - Unspecified convulsions SNOMED: 95846816 (4) Polyneuropathy in diabetes ICD Codes: E11.42 - Type 2 diabetes mellitus with diabetic polyneuropathy SNOMED: 62015654, 48817018 (5) Hypothyroid ICD Codes: E03.9 - Hypothyroidism, unspecified SNOMED: 09794187 (6) Weak ICD Codes: R53.1 - Weakness SNOMED: 56740602 (7) COPD (chronic obstructive pulmonary disease) ICD Codes: J44.9 - Chronic obstructive pulmonary disease, unspecified SNOMED: 68761656 (8) Acute febrile illness ICD Codes: R50.9 - Fever, unspecified SNOMED: 420119943 (9) Suspected 2019 novel coronavirus infection ICD Codes: Z20.828 - Contact with and (suspected) exposure to other viral communicable diseases SNOMED: 238941606 (10) Pancytopenia ICD Codes: D61.818 - Other pancytopenia SNOMED: 464687963 Status: unchanged Assessment/Plan: o2 pulm tx abx pt diet cbc bmp am heme eval aru eval Subjective Constitutional: Reports: weakness Allergies: Coded Allergies: No Known Allergies (Unverified , 03/19/20) All Systems: reviewed and negative except above Subjective calm in room Objective Last 24 Hour Vital Signs Date Time Temp Pulse Resp B/P (MAP) Pulse Ox O2 Delivery O2 Flow Rate FiO2 03/28/20 08:30 Room Air 03/28/20 08:00 97.9 87 17 121/81 (94) 95 03/28/20 04:00 97.5 68 18 108/65 (79) 95 03/28/20 00:00 97.0 77 20 108/76 (87) 99 03/27/20 20:14 Room Air 03/27/20 20:00 97.0 84 20 117/77 (90) 94 03/27/20 16:00 98.2 83 17 110/56 (74) 95 03/27/20 12:00 98.1 74 18 110/57 (74) 97 Intake and Output 03/27/20 03/28/20 19:00 07:00 Intake Total 1600 ml 435 ml Output Total 900 ml Balance 700 ml 435 ml Intake Oral 700 ml IV Total 900 ml 75 ml Other 360 ml Output Urine Total 900 ml # Voids 2 4 Laboratory Tests 03/28/20 05:30: White Blood Count 6.1, Red Blood Count 3.61L, Hemoglobin 10.5L, Hematocrit 29.7L , Mean Corpuscular Volume 82, Mean Corpuscular Hemoglobin 29.1, Mean Corpuscular Hemoglobin Concent 35.4, Red Cell Distribution Width 11.0L, Platelet Count 255, Mean Platelet Volume 6.1L, Neutrophils (%) (Auto) , Lymphocytes (%) (Auto) , Monocytes (%) (Auto) , Eosinophils (%) (Auto) , Basophils (%) (Auto) , Neutrophils % (Manual) [Pending], Lymphocytes % (Manual) [Pending], Platelet Estimate [Pending], Platelet Morphology [Pending], Sodium Level 146H, Potassium Level 3.3L, Chloride Level 108H, Carbon Dioxide Level 31, Anion Gap 7, Blood Urea Nitrogen 5L, Creatinine 0.6, Estimat Glomerular Filtration Rate > 60, Glucose Level 96, Calcium Level 8.0L Height (Feet): 5 Height (Inches): 6.00 Weight (Pounds): 111 General Appearance: lethargic EENT: normal ENT inspection Neck: normal alignment Cardiovascular: normal rate, regular rhythm Respiratory/Chest: no respiratory distress, no accessory muscle use Extremities: normal inspection Skin: normal pigmentation Ramone Larsen DO March 28, 2020 10:24
[2020-03-28] MEDS: D5NS 1,000 ML IV SCH ×2 (11:58→21:44)
[2020-03-28 12:05] VITALS: BP 119/79
--- NOTE | 2020-03-28 12:36 | Hematology/Onc Progress Note ---
Assessment/Plan Assessment/Plan # Pancytopenia -- multiple etiologies could be related to underlying liver disease, medication-induced, infection versus viral syndrome versus underlying bone marrow cause, in this case is related to underlying covid19+ --> peripheral smear has been ordered and does not show significant abnormalities --> Medications have been reviewed --> Continue to monitor for improvement, trend cbc --> Hep panel and HIV have been ordered-->NEG --> US abd ordered to r/o cirrhosis and hepatosplenomegaly --> consider if doesn 't resolve in several days --> reverse isolation if ANC is <2000 --> Give neupogen if ANC <1000 --> Transfuse if hgb <7, with 1 unit prbc --> consider bone marrow biopsy if no other causes are found --> wbc 5-->3-->3.7 --> hgb 9->10.5 # Multifocal pna -- with respiratory distress -- Suspected 2019 novel coronavirus infection --> covid 19+ --> per Dr. Benítez --> per ID, abx cefepime/vanc # COPD (chronic obstructive pulmonary disease) --> breathing rx as needed # Hypotension, most likely secondary to COVID-19 pneumonia --> s/p 1000 ml IV NS with recovery of SBP now at 95 mmHg. --> per Dr. Dinh # Hypokalemia # Dm2 # Schizophrenia # Seizure disorder # [place] resident ([place]) # Dvt ppx heparin sq The timing of this note does not necessarily reflect the time of the patient was seen. Greatly appreciate consultation. Subjective Constitutional: Denies: no symptoms, chills, fever, malaise, weakness, other Cardiovascular: Denies: no symptoms, chest pain, edema, irregular heart rate, lightheadedness, palpitations, syncope, other Respiratory: Denies: no symptoms, cough, shortness of breath, SOB with excertion, SOB at rest, sputum, wheezing, other Gastrointestinal/Abdominal: Denies: no symptoms, abdomen distended, abdominal pain, black stools, tarry stools, blood in stool, constipated, diarrhea, difficulty swallowing, nausea, poor appetite, poor fluid intake, rectal bleeding , vomiting, other Neurologic/Psychiatric: Denies: no symptoms, anxiety, depressed, emotional problems, headache, numbness, paresthesia, pre-existing deficit, seizure, tingling, tremors, weakness, other Allergies: Coded Allergies: No Known Allergies (Unverified , 03/19/20) Subjective 03/23 hypotensive overnight, given ivf, labs reviewed, meds noted, agitated in am , swearing, foul language 03/24 remains irritable, no bleeding, no f/c, labs noted 03/25 labs noted, no bleeding, no f/c overnight 03/26 labs noted, hgb 10.1 wbc 6 03/28 alert oriented, no bleeding, meds noted, no night sweats hgb 10.5 Objective Objective Current Medications Medications (Trade) Dose Ordered Sig/Deric Route PRN Reason Start Time Stop Time Status Last Admin Dose Admin Acetaminophen (Tylenol) 650 mg Q4H PRN ORAL Temp >100.5 03/26/20 07:30 04/19/20 07:29 Benztropine Mesylate (Cogentin) 2 mg BID ORAL 03/27/20 18:00 04/19/20 08:59 03/28/20 08:22 Dextrose (Dextrose 50%) 25 ml Q30M PRN IV Hypoglycemia 03/26/20 07:30 06/18/20 00:59 Dextrose (Dextrose 50%) 50 ml Q30M PRN IV Hypoglycemia 03/26/20 07:30 06/18/20 00:59 Dextrose/Sodium Chloride 1,000 ml @ 75 mls/hr [id number] IV 03/26/20 07:30 04/20/20 12:14 03/28/20 11:58 Diphenhydramine HCl (Benadryl) 50 mg BID ORAL 03/26/20 09:00 04/19/20 17:59 03/28/20 08:22 Docusate Sodium (Colace) 100 mg DAILY ORAL 03/26/20 09:00 04/19/20 08:59 03/28/20 08:22 Gabapentin (Neurontin) 300 mg THREE TIMES A DAY ORAL 03/26/20 09:00 04/19/20 08:59 03/28/20 12:23 Haloperidol (Haldol) 10 mg BID ORAL 03/26/20 18:00 05/04/20 17:59 03/28/20 08:22 Heparin Sodium (Porcine) (Heparin 5000 units/ml) 5,000 units EVERY 8 HOURS SUBQ 03/26/20 14:00 05/04/20 13:59 03/27/20 07:03 Insulin Aspart (NovoLOG) BEFORE MEALS AND HS SUBQ 03/26/20 11:30 06/18/20 06:29 Levothyroxine Sodium (Synthroid) 50 mcg DAILY@0630 ORAL 03/27/20 06:30 04/19/20 06:29 03/27/20 07:03 Metformin HCl (Glucophage) 500 mg BIDBL ORAL 03/26/20 11:30 04/19/20 06:29 03/28/20 11:13 Quetiapine Fumarate (SEROqueL) 200 mg BID ORAL 03/26/20 09:00 05/04/20 17:59 03/28/20 08:23 Quetiapine Fumarate (SEROqueL) 400 mg QHS ORAL 03/26/20 21:00 05/04/20 20:59 Sennosides (Senokot) 17.2 mg QHS ORAL 03/26/20 21:00 04/21/20 22:59 Last 24 Hour Vital Signs Date Time Temp Pulse Resp B/P (MAP) Pulse Ox O2 Delivery O2 Flow Rate FiO2 03/28/20 12:05 98.4 80 17 119/79 (92) 98 03/28/20 08:30 Room Air 03/28/20 08:00 97.9 87 17 121/81 (94) 95 03/28/20 04:00 97.5 68 18 108/65 (79) 95 03/28/20 00:00 97.0 77 20 108/76 (87) 99 03/27/20 20:14 Room Air 03/27/20 20:00 97.0 84 20 117/77 (90) 94 03/27/20 16:00 98.2 83 17 110/56 (74) 95 03/27/20 12:00 98.1 74 18 110/57 (74) 97 03/27/20 09:00 Room Air 03/27/20 08:00 97.8 70 18 116/71 (86) 97 03/27/20 04:00 98.4 72 18 118/72 (87) 95 03/27/20 00:30 96 Nasal Cannula 2.0 28 03/27/20 00:00 98.4 66 18 125/77 (93) 96 03/26/20 21:00 Room Air 03/26/20 20:00 98.6 80 18 111/67 (82) 96 03/26/20 16:00 97.9 88 18 131/83 (99) 98 Intake and Output 03/27/20 03/28/20 19:00 07:00 Intake Total 1600 ml 435 ml Output Total 900 ml Balance 700 ml 435 ml Intake Oral 700 ml IV Total 900 ml 75 ml Other 360 ml Output Urine Total 900 ml # Voids 2 4 Labs Test 03/26/20 10:00 03/27/20 04:00 03/28/20 05:30 White Blood Count 6.1 K/UL (4.8-10.8) 5.8 K/UL (4.8-10.8) 6.1 K/UL (4.8-10.8) Red Blood Count 3.63 M/UL (4.70-6.10) 3.68 M/UL (4.70-6.10) 3.61 M/UL (4.70-6.10) Hemoglobin 10.3 G/DL (14.2-18.0) 10.6 G/DL (14.2-18.0) 10.5 G/DL (14.2-18.0) Hematocrit 29.8 % (42.0-52.0) 30.6 % (42.0-52.0) 29.7 % (42.0-52.0) Mean Corpuscular Volume 82 FL (80-99) 83 FL (80-99) 82 FL (80-99) Mean Corpuscular Hemoglobin 28.5 PG (27.0-31.0) 28.9 PG (27.0-31.0) 29.1 PG (27.0-31.0) Mean Corpuscular Hemoglobin Concent 34.7 G/DL (32.0-36.0) 34.7 G/DL (32.0-36.0) 35.4 G/DL (32.0-36.0) Red Cell Distribution Width 10.8 % (11.6-14.8) 10.9 % (11.6-14.8) 11.0 % (11.6-14.8) Platelet Count 242 K/UL (150-450) 240 K/UL (150-450) 255 K/UL (150-450) Mean Platelet Volume 6.5 FL (6.5-10.1) 5.8 FL (6.5-10.1) 6.1 FL (6.5-10.1) Neutrophils (%) (Auto) 69.9 % (45.0-75.0) 55.4 % (45.0-75.0) % (45.0-75.0) Lymphocytes (%) (Auto) 22.2 % (20.0-45.0) 29.7 % (20.0-45.0) % (20.0-45.0) Monocytes (%) (Auto) 6.1 % (1.0-10.0) 8.3 % (1.0-10.0) % (1.0-10.0) Eosinophils (%) (Auto) 1.5 % (0.0-3.0) 4.1 % (0.0-3.0) % (0.0-3.0) Basophils (%) (Auto) 0.3 % (0.0-2.0) 2.5 % (0.0-2.0) % (0.0-2.0) Sodium Level 143 MMOL/L (136-145) 146 MMOL/L (136-145) 146 MMOL/L (136-145) Potassium Level 3.7 MMOL/L (3.5-5.1) 3.8 MMOL/L (3.5-5.1) 3.3 MMOL/L (3.5-5.1) Chloride Level 108 MMOL/L (98-107) 108 MMOL/L (98-107) 108 MMOL/L (98-107) Carbon Dioxide Level 28 MMOL/L (21-32) 31 MMOL/L (21-32) 31 MMOL/L (21-32) Anion Gap 7 mmol/L (5-15) 7 mmol/L (5-15) Blood Urea Nitrogen 13 mg/dL (7-18) 7 mg/dL (7-18) 5 mg/dL (7-18) Creatinine 0.7 MG/DL (0.55-1.30) 0.7 MG/DL (0.55-1.30) 0.6 MG/DL (0.55-1.30) Estimat Glomerular Filtration Rate > 60 mL/min (>60) > 60 mL/min (>60) > 60 mL/min (>60) Glucose Level 108 MG/DL (74-106) 79 MG/DL (74-106) 96 MG/DL (74-106) Calcium Level 8.3 MG/DL (8.5-10.1) 8.4 MG/DL (8.5-10.1) 8.0 MG/DL (8.5-10.1) Differential Total Cells Counted 100 Neutrophils % (Manual) 67 % (45-75) Lymphocytes % (Manual) 23 % (20-45) Monocytes % (Manual) 10 % (1-10) Eosinophils % (Manual) 0 % (0-3) Basophils % (Manual) 0 % (0-2) Band Neutrophils 0 % (0-8) Platelet Estimate Adequate Platelet Morphology Normal Hypochromasia 1+ Height (Feet): 5 Height (Inches): 6.00 Weight (Pounds): 111 Objective Vitals: reviewed General: NAD, A+O x1 HEENT: nc, at Neck: supple Chest: clear breath sounds bilaterally Cardiovascular: RRR, no s3, s4 Abdomen: soft, nontender, nd Extremities: no cce, normal range of motion Neuro: confused Andry Culp MD March 28, 2020 12:36
--- NOTE | 2020-03-28 13:15 | Progress Note ---
DATE: 03/28/2020 SUBJECTIVE: This is a 74-year-old male patient . This patient does have diabetes, seizure disorder, neuropathy, urinary tract infection, COPD, rule out COVID-19, but he also has a lot of mood lability, agitation, irritability, verbally abusive to staff, agitated, irritable, combative. That is why, he does require inpatient treatment at this time. MENTAL STATUS EXAMINATION: This is a 74-year-old male. Appearance is disheveled. Attitude, irritable and agitated. Affect, guarded and restricted. Intellect, poor. Mood, depressed and anxious. Motor activity, psychomotor agitation. Insight and judgment is poor. DIAGNOSIS: Paranoid schizophrenia with acute exacerbation. PLAN: Treat him with Seroquel 200 mg twice a day and 400 at bedtime, Haldol 10 twice a day, Ativan 1 every 6 hours p.r.n. anxiety and agitation, Neurontin 300 mg three times a day, Cogentin 2 twice a day. A 20 minutes of cognitive behavioral therapy will help him identify his automatic negative thoughts to help him convert his negative thoughts to more positive thoughts to reduce depression, anxiety, and mood lability. A 20 minutes of cognitive behavioral therapy provided. Chart reviewed. Discussed with staff. Seen and assessed in his room. Cristina Brandt M.D. DR: DOMINICK JOB#: [id number] CC:
[2020-03-28 15:55] VITALS: BP 121/83
--- NOTE | 2020-03-28 19:25 | NUR ---
HAND-OFF: Report given to JACOB Toussaint Resting comfortably in bed, needs met and anticipated, patient fee from [facility]age prasad rn
--- NOTE | 2020-03-28 19:25 | NUR ---
NURSE NOTES: Received patient on bed, awake and verbally responsive. room air. no sob. iv line on the right forearm running d5ns @ 75ml/hr. he uses urinal. reiterated to call or ask for assistance. call light and light button within easy reach. bed locked and in lowest position. will continue plan of care.
[2020-03-28 20:00] VITALS: BP 117/69
[2020-03-28] MEDS: Sennosides 8.6mg tab ORAL SCH (20:34)
[2020-03-29] VITALS: BP 121/70
[2020-03-29 04:00] VITALS: BP 109/53
[2020-03-29] MEDS: Heparin 5000 units/ml inj SUBQ SCH ×2 (06:00→14:00)
[2020-03-29] MEDS: metFORMIN 500mg tab ORAL SCH ×2 (06:07→12:38)
[2020-03-29] MEDS: NovoLOG Insulin Flexpen SUBQ SCH ×2 (06:08→11:30)
--- NOTE | 2020-03-29 06:24 | NUR ---
NURSE NOTES: NURSE NOTES: PATIENT REFUSED MEDICATIONS, ACUCHECK AND BLOOD DRAW. PER PATIENT HE WANTS THE BLOOD DRAW AFTER US ABDOMEN.
--- NOTE | 2020-03-29 07:07 | NUR ---
HAND-OFF: Report given to leo franks rn.
--- NOTE | 2020-03-29 07:42 | NUR ---
NURSE NOTES: Report received from Aracelis JAMES. Nurse reports patient refused blood draw in AM. Will reattempt. Also refused accucheck. Has been NPO since 12mn for anticipated procedure this AM. Patient seen on rounds, AxOx1, not in distress. Tolerating room air. Afebrile. Patient is ambulatory with steady gait. PIV on right forearm patent and intact. Isolation precautions maintained. Bed low and locked, siderails up x2, zone alarms on 1, instructed to use call light for assistance and placed within reach. Will continue to monitor.
[2020-03-29 08:00] VITALS: BP 111/53
--- NOTE | 2020-03-29 08:20 | NUR ---
NURSE NOTES: Spoke with Juliana from ultrasound to confirm schedule of abdominal ultz today. Says she will notify Dr. Ponce and ask for clarification. Says patient will not need to be on NPO for procedure.
[2020-03-29 08:58] LABS: BASOPHILS % (AUTO) 0.7 % (0.0-2.0); EOSINOPHILS % (AUTO) 3.4 % (0.0-3.0); HEMOGLOBIN 11.5 G/DL (14.2-18.0); LYMPHOCYTES % (AUTO) 26.2 % (20.0-45.0); MEAN CORPUSCULAR VOLUME 84 FL (80-99); MONOCYTES % (AUTO) 4.6 % (1.0-10.0); NEUTROPHILS % (AUTO) 65.1 % (45.0-75.0); PLATELET COUNT 270 K/UL (150-450); RED BLOOD COUNT 3.94 M/UL (4.70-6.10); RED CELL DISTRIBUTION WIDTH 11.4 % (11.6-14.8); WHITE BLOOD COUNT 5.8 K/UL (4.8-10.8)
[2020-03-29] MEDS: QUEtiapine 200mg tab ORAL SCH (09:33)
[2020-03-29] MEDS: Benztropine 1mg tab ORAL SCH (09:33)
[2020-03-29] MEDS: Docusate 100mg cap ORAL SCH (09:33)
[2020-03-29 09:47] LABS: ANION GAP 7 mmol/L (5-15); BLOOD UREA NITROGEN 8 mg/dL (7-18); CALCIUM 8.3 MG/DL (8.5-10.1); CARBON DIOXIDE 30 MMOL/L (21-32); CHLORIDE 108 MMOL/L (98-107); CREATININE 0.7 MG/DL (0.55-1.30); POTASSIUM 4.1 MMOL/L (3.5-5.1); SODIUM 145 MMOL/L (136-145)
--- NOTE | 2020-03-29 10:05 | General Progress Note ---
Assessment/Plan Problem List: (1) UTI (urinary tract infection) ICD Codes: N39.0 - Urinary tract infection, site not specified SNOMED: 71038147 (2) Diabetes ICD Codes: E11.9 - Type 2 diabetes mellitus without complications SNOMED: 15099536 (3) Seizure ICD Codes: R56.9 - Unspecified convulsions SNOMED: 26492388 (4) Polyneuropathy in diabetes ICD Codes: E11.42 - Type 2 diabetes mellitus with diabetic polyneuropathy SNOMED: 51431395, 14165491 (5) Hypothyroid ICD Codes: E03.9 - Hypothyroidism, unspecified SNOMED: 69930568 (6) Weak ICD Codes: R53.1 - Weakness SNOMED: 71916887 (7) COPD (chronic obstructive pulmonary disease) ICD Codes: J44.9 - Chronic obstructive pulmonary disease, unspecified SNOMED: 14997906 (8) Acute febrile illness ICD Codes: R50.9 - Fever, unspecified SNOMED: 304393914 (9) Suspected 2019 novel coronavirus infection ICD Codes: Z20.828 - Contact with and (suspected) exposure to other viral communicable diseases SNOMED: 934666567 (10) Pancytopenia ICD Codes: D61.818 - Other pancytopenia SNOMED: 425433128 Status: unchanged Assessment/Plan: o2 pulm tx abx pt diet cbc bmp am heme eval aru eval Subjective Constitutional: Reports: weakness Allergies: Coded Allergies: No Known Allergies (Unverified , 03/19/20) All Systems: reviewed and negative except above Subjective calm in room Objective Last 24 Hour Vital Signs Date Time Temp Pulse Resp B/P (MAP) Pulse Ox O2 Delivery O2 Flow Rate FiO2 03/29/20 09:00 Room Air 03/29/20 08:00 97.4 73 18 111/53 (72) 98 03/29/20 04:00 97.8 69 20 109/53 (71) 97 03/29/20 00:00 98.0 70 19 121/70 (87) 96 03/28/20 21:00 Room Air 03/28/20 20:00 98.4 70 18 117/69 (85) 97 03/28/20 15:55 97.9 83 18 121/83 (96) 98 03/28/20 12:05 98.4 80 17 119/79 (92) 98 Intake and Output 03/28/20 03/29/20 19:00 07:00 Intake Total 1625 ml 1050 ml Output Total 1400 ml 900 ml Balance 225 ml 150 ml Intake Oral 800 ml 450 ml IV Total 825 ml 600 ml Output Urine Total 1400 ml 900 ml # Voids 4 Laboratory Tests 03/29/20 07:50: White Blood Count 5.8, Red Blood Count 3.94L, Hemoglobin 11.5L, Hematocrit 33.0L , Mean Corpuscular Volume 84, Mean Corpuscular Hemoglobin 29.1, Mean Corpuscular Hemoglobin Concent 34.8, Red Cell Distribution Width 11.4L, Platelet Count 270, Mean Platelet Volume 6.2L, Neutrophils (%) (Auto) 65.1, Lymphocytes (%) (Auto) 26.2, Monocytes (%) (Auto) 4.6, Eosinophils (%) (Auto) 3.4H, Basophils (%) (Auto) 0.7, Sodium Level 145, Potassium Level 4.1, Chloride Level 108H, Carbon Dioxide Level 30, Anion Gap 7, Blood Urea Nitrogen 8, Creatinine 0.7, Estimat Glomerular Filtration Rate > 60, Glucose Level 102, Calcium Level 8.3L Height (Feet): 5 Height (Inches): 6.00 Weight (Pounds): 111 General Appearance: lethargic EENT: normal ENT inspection Neck: normal alignment Cardiovascular: normal rate, regular rhythm Respiratory/Chest: no respiratory distress, no accessory muscle use Extremities: normal inspection Skin: normal pigmentation Ramone Larsen DO March 29, 2020 10:05
--- NOTE | 2020-03-29 10:15 | Cardiology Progress Note ---
Assessment/Plan Assessment/Plan 1. Hypotension, resolved, continue hydration, most likely secondary to COVID-19 pneumonia. 2. Confirmed COVID-19 infection with B/L pneumonia. 3. History of COPD 4. Hypernatremia, resolving. Subjective Subjective Sinus rhythm at rate of 73. Objective Last 24 Hour Vital Signs Date Time Temp Pulse Resp B/P (MAP) Pulse Ox O2 Delivery O2 Flow Rate FiO2 03/29/20 09:00 Room Air 03/29/20 08:00 97.4 73 18 111/53 (72) 98 03/29/20 04:00 97.8 69 20 109/53 (71) 97 03/29/20 00:00 98.0 70 19 121/70 (87) 96 03/28/20 21:00 Room Air 03/28/20 20:00 98.4 70 18 117/69 (85) 97 03/28/20 15:55 97.9 83 18 121/83 (96) 98 03/28/20 12:05 98.4 80 17 119/79 (92) 98 Intake and Output 03/28/20 03/29/20 19:00 07:00 Intake Total 1625 ml 1050 ml Output Total 1400 ml 900 ml Balance 225 ml 150 ml Intake Oral 800 ml 450 ml IV Total 825 ml 600 ml Output Urine Total 1400 ml 900 ml # Voids 4 Laboratory Tests Test 03/29/20 07:50 White Blood Count 5.8 K/UL (4.8-10.8) Red Blood Count 3.94 M/UL (4.70-6.10) L Hemoglobin 11.5 G/DL (14.2-18.0) L Hematocrit 33.0 % (42.0-52.0) L Mean Corpuscular Volume 84 FL (80-99) Mean Corpuscular Hemoglobin 29.1 PG (27.0-31.0) Mean Corpuscular Hemoglobin Concent 34.8 G/DL (32.0-36.0) Red Cell Distribution Width 11.4 % (11.6-14.8) L Platelet Count 270 K/UL (150-450) Mean Platelet Volume 6.2 FL (6.5-10.1) L Neutrophils (%) (Auto) 65.1 % (45.0-75.0) Lymphocytes (%) (Auto) 26.2 % (20.0-45.0) Monocytes (%) (Auto) 4.6 % (1.0-10.0) Eosinophils (%) (Auto) 3.4 % (0.0-3.0) H Basophils (%) (Auto) 0.7 % (0.0-2.0) Sodium Level 145 MMOL/L (136-145) Potassium Level 4.1 MMOL/L (3.5-5.1) Chloride Level 108 MMOL/L (98-107) H Carbon Dioxide Level 30 MMOL/L (21-32) Anion Gap 7 mmol/L (5-15) Blood Urea Nitrogen 8 mg/dL (7-18) Creatinine 0.7 MG/DL (0.55-1.30) Estimat Glomerular Filtration Rate > 60 mL/min (>60) Glucose Level 102 MG/DL (74-106) Calcium Level 8.3 MG/DL (8.5-10.1) L Microbiology Date/Time Source Procedure Growth Status 03/26/20 12:00 Nasopharynx Coronavirus COVID-19 PCR ([facility]) - Final Complete Objective HEENT: Normocephalic and atraumatic. PERRLA, EOMI. NECK: No JVD, no carotid bruit. CARDIOVASCULAR: Normal S1S2, no murmurs, gallops or rubs, regular, rate and rhythm. PULMONARY: Diminished BS, crackles right lung. ABDOMEN: Non-tender, non-distended, + BS EXTREMITIES: No cyanosis, edema or clubbing. Ja Dinh MD March 29, 2020 10:15
--- NOTE | 2020-03-29 11:46 | Hematology/Onc Progress Note ---
Assessment/Plan Assessment/Plan # Pancytopenia -- multiple etiologies could be related to underlying liver disease, medication-induced, infection versus viral syndrome versus underlying bone marrow cause, in this case is related to underlying covid19+ --> peripheral smear has been ordered and does not show significant abnormalities --> Medications have been reviewed --> Continue to monitor for improvement, trend cbc --> Hep panel and HIV have been ordered-->NEG --> US abd ordered to r/o cirrhosis and hepatosplenomegaly --> consider if doesn 't resolve in several days --> reverse isolation if ANC is <2000 --> Give neupogen if ANC <1000 --> Transfuse if hgb <7, with 1 unit prbc --> consider bone marrow biopsy if no other causes are found --> wbc 5-->3-->3.7 --> hgb 9->10.5->11.5 # Multifocal pna -- with respiratory distress -- Suspected 2019 novel coronavirus infection --> covid 19+ --> per Dr. Benítez --> per ID, abx cefepime/vanc # COPD (chronic obstructive pulmonary disease) --> breathing rx as needed # Hypotension, most likely secondary to COVID-19 pneumonia --> s/p 1000 ml IV NS with recovery of SBP now at 95 mmHg. --> per Dr. Dinh # Hypokalemia # Dm2 # Schizophrenia # Seizure disorder # [place] resident ([facility]) # Dvt ppx heparin sq The timing of this note does not necessarily reflect the time of the patient was seen. Greatly appreciate consultation. Subjective Constitutional: Denies: no symptoms, chills, fever, malaise, weakness, other Cardiovascular: Denies: no symptoms, chest pain, edema, irregular heart rate, lightheadedness, palpitations, syncope, other Respiratory: Denies: no symptoms, cough, shortness of breath, SOB with excertion, SOB at rest, sputum, wheezing, other Endocrine: Denies: no symptoms, excessive sweating, flushing, intolerance to cold, intolerance to heat, increased hunger, increased thirst, increased urine, unexplained weight gain, unexplained weight loss, other Hematologic/Lymphatic: Denies: no symptoms, anemia, easy bleeding, easy bruising, adenopathy, other Allergies: Coded Allergies: No Known Allergies (Unverified , 03/19/20) Subjective 03/23 hypotensive overnight, given ivf, labs reviewed, meds noted, agitated in am , swearing, foul language 03/24 remains irritable, no bleeding, no f/c, labs noted 03/25 labs noted, no bleeding, no f/c overnight 03/26 labs noted, hgb 10.1 wbc 6 03/28 alert oriented, no bleeding, meds noted, no night sweats hgb 10.5 03/29 is comfortable, still refusing meds, labs reviewed, no bleeding Objective Objective Current Medications Medications (Trade) Dose Ordered Sig/Deric Route PRN Reason Start Time Stop Time Status Last Admin Dose Admin Acetaminophen (Tylenol) 650 mg Q4H PRN ORAL Temp >100.5 03/26/20 07:30 04/19/20 07:29 Benztropine Mesylate (Cogentin) 2 mg BID ORAL 03/27/20 18:00 04/19/20 08:59 03/29/20 09:33 Dextrose (Dextrose 50%) 25 ml Q30M PRN IV Hypoglycemia 03/26/20 07:30 06/18/20 00:59 Dextrose (Dextrose 50%) 50 ml Q30M PRN IV Hypoglycemia 03/26/20 07:30 06/18/20 00:59 Dextrose/Sodium Chloride 1,000 ml @ 75 mls/hr [id number] IV 03/26/20 07:30 04/20/20 12:14 03/28/20 21:44 Diphenhydramine HCl (Benadryl) 50 mg BID ORAL 03/26/20 09:00 04/19/20 17:59 03/29/20 09:33 Docusate Sodium (Colace) 100 mg DAILY ORAL 03/26/20 09:00 04/19/20 08:59 03/29/20 09:33 Gabapentin (Neurontin) 300 mg THREE TIMES A DAY ORAL 03/26/20 09:00 04/19/20 08:59 03/29/20 09:33 Haloperidol (Haldol) 10 mg BID ORAL 03/26/20 18:00 05/04/20 17:59 03/29/20 09:33 Heparin Sodium (Porcine) (Heparin 5000 units/ml) 5,000 units EVERY 8 HOURS SUBQ 03/26/20 14:00 05/04/20 13:59 03/27/20 07:03 Insulin Aspart (NovoLOG) BEFORE MEALS AND HS SUBQ 03/26/20 11:30 06/18/20 06:29 Levothyroxine Sodium (Synthroid) 50 mcg DAILY@0630 ORAL 03/27/20 06:30 04/19/20 06:29 03/27/20 07:03 Metformin HCl (Glucophage) 500 mg BIDBL ORAL 03/26/20 11:30 04/19/20 06:29 03/28/20 11:13 Quetiapine Fumarate (SEROqueL) 200 mg BID ORAL 03/26/20 09:00 05/04/20 17:59 03/29/20 09:33 Quetiapine Fumarate (SEROqueL) 400 mg QHS ORAL 03/26/20 21:00 05/04/20 20:59 03/28/20 20:34 Sennosides (Senokot) 17.2 mg QHS ORAL 03/26/20 21:00 04/21/20 22:59 03/28/20 20:34 Last 24 Hour Vital Signs Date Time Temp Pulse Resp B/P (MAP) Pulse Ox O2 Delivery O2 Flow Rate FiO2 03/29/20 09:00 Room Air 03/29/20 08:00 97.4 73 18 111/53 (72) 98 03/29/20 04:00 97.8 69 20 109/53 (71) 97 03/29/20 00:00 98.0 70 19 121/70 (87) 96 03/28/20 21:00 Room Air 03/28/20 20:00 98.4 70 18 117/69 (85) 97 03/28/20 15:55 97.9 83 18 121/83 (96) 98 03/28/20 12:05 98.4 80 17 119/79 (92) 98 03/28/20 08:30 Room Air 03/28/20 08:00 97.9 87 17 121/81 (94) 95 03/28/20 04:00 97.5 68 18 108/65 (79) 95 03/28/20 00:00 97.0 77 20 108/76 (87) 99 03/27/20 20:14 Room Air 03/27/20 20:00 97.0 84 20 117/77 (90) 94 03/27/20 16:00 98.2 83 17 110/56 (74) 95 03/27/20 12:00 98.1 74 18 110/57 (74) 97 Intake and Output 03/28/20 03/29/20 19:00 07:00 Intake Total 1625 ml 1050 ml Output Total 1400 ml 900 ml Balance 225 ml 150 ml Intake Oral 800 ml 450 ml IV Total 825 ml 600 ml Output Urine Total 1400 ml 900 ml # Voids 4 Labs Test 03/27/20 04:00 03/28/20 05:30 03/29/20 07:50 White Blood Count 5.8 K/UL (4.8-10.8) 6.1 K/UL (4.8-10.8) 5.8 K/UL (4.8-10.8) Red Blood Count 3.68 M/UL (4.70-6.10) 3.61 M/UL (4.70-6.10) 3.94 M/UL (4.70-6.10) Hemoglobin 10.6 G/DL (14.2-18.0) 10.5 G/DL (14.2-18.0) 11.5 G/DL (14.2-18.0) Hematocrit 30.6 % (42.0-52.0) 29.7 % (42.0-52.0) 33.0 % (42.0-52.0) Mean Corpuscular Volume 83 FL (80-99) 82 FL (80-99) 84 FL (80-99) Mean Corpuscular Hemoglobin 28.9 PG (27.0-31.0) 29.1 PG (27.0-31.0) 29.1 PG (27.0-31.0) Mean Corpuscular Hemoglobin Concent 34.7 G/DL (32.0-36.0) 35.4 G/DL (32.0-36.0) 34.8 G/DL (32.0-36.0) Red Cell Distribution Width 10.9 % (11.6-14.8) 11.0 % (11.6-14.8) 11.4 % (11.6-14.8) Platelet Count 240 K/UL (150-450) 255 K/UL (150-450) 270 K/UL (150-450) Mean Platelet Volume 5.8 FL (6.5-10.1) 6.1 FL (6.5-10.1) 6.2 FL (6.5-10.1) Neutrophils (%) (Auto) 55.4 % (45.0-75.0) % (45.0-75.0) 65.1 % (45.0-75.0) Lymphocytes (%) (Auto) 29.7 % (20.0-45.0) % (20.0-45.0) 26.2 % (20.0-45.0) Monocytes (%) (Auto) 8.3 % (1.0-10.0) % (1.0-10.0) 4.6 % (1.0-10.0) Eosinophils (%) (Auto) 4.1 % (0.0-3.0) % (0.0-3.0) 3.4 % (0.0-3.0) Basophils (%) (Auto) 2.5 % (0.0-2.0) % (0.0-2.0) 0.7 % (0.0-2.0) Sodium Level 146 MMOL/L (136-145) 146 MMOL/L (136-145) 145 MMOL/L (136-145) Potassium Level 3.8 MMOL/L (3.5-5.1) 3.3 MMOL/L (3.5-5.1) 4.1 MMOL/L (3.5-5.1) Chloride Level 108 MMOL/L (98-107) 108 MMOL/L (98-107) 108 MMOL/L (98-107) Carbon Dioxide Level 31 MMOL/L (21-32) 31 MMOL/L (21-32) 30 MMOL/L (21-32) Blood Urea Nitrogen 7 mg/dL (7-18) 5 mg/dL (7-18) 8 mg/dL (7-18) Creatinine 0.7 MG/DL (0.55-1.30) 0.6 MG/DL (0.55-1.30) 0.7 MG/DL (0.55-1.30) Estimat Glomerular Filtration Rate > 60 mL/min (>60) > 60 mL/min (>60) > 60 mL/min (>60) Glucose Level 79 MG/DL (74-106) 96 MG/DL (74-106) 102 MG/DL (74-106) Calcium Level 8.4 MG/DL (8.5-10.1) 8.0 MG/DL (8.5-10.1) 8.3 MG/DL (8.5-10.1) Differential Total Cells Counted 100 Neutrophils % (Manual) 67 % (45-75) Lymphocytes % (Manual) 23 % (20-45) Monocytes % (Manual) 10 % (1-10) Eosinophils % (Manual) 0 % (0-3) Basophils % (Manual) 0 % (0-2) Band Neutrophils 0 % (0-8) Platelet Estimate Adequate Platelet Morphology Normal Hypochromasia 1+ Anion Gap 7 mmol/L (5-15) 7 mmol/L (5-15) Height (Feet): 5 Height (Inches): 6.00 Weight (Pounds): 111 Objective Vitals: reviewed General: NAD, A+O x1 HEENT: nc, at Neck: supple Chest: clear breath sounds bilaterally Cardiovascular: RRR, no s3, s4 Abdomen: soft, nontender, nd Extremities: no cce, normal range of motion Neuro: confused Andry Culp MD March 29, 2020 11:46
[2020-03-29 12:00] VITALS: BP 118/61
--- NOTE | 2020-03-29 12:24 | NUR ---
*-DISCHARGE PLANNING*-* PATIENT HAS BEEN REFERRED BACK TO: [facility] P: [phone] F: [phone]
--- NOTE | 2020-03-29 13:10 | Infectious Diseases Prog Note ---
Assessment/Plan Assessment/Plan Assessment: Multifocal PNA- 2ry to COVID19 (resident of [place] with large outbreak)- sp 2l NC- now at [facility] -03/21 CXR: Worsening airspace disease most likely representing pneumonia at the right upper lobe and right lower lobe. Unchanged peripheral patchy airspace opacities at the left base probably also representing pneumonia. BCx neg -CXR: Patchy right lung opacities suggest multifocal pneumonia. Possible right hilar enlargement versus artifactual prominence due to patient positioning , recommend attention on followup. If there is continued concern, consider CT. -03/19 SARS-COV2 PCR +; 03/25, 03/26 COVID still positive x2 Fever; SP Pancytopenia/Lymphocytopenia; SP -u/a neg Hypokalemia COPD Dm2 schizophrenia seizure disorder polyneuropathy hypothyroidism [place] resident ([facility]) Plan: -Continue to monitor off abx --ok to DC back fo SNF on isolation and off antibiotics -03/25 SP Cefepime #/ -03/23 SP IV Vancomycin # -03/19 sp Flagyl x1 -f/u cx -Monitor CBC/CMP, temperatures -COVID19 isolation -aspiration precautions Thank you for consulting [facility]. Will continue to follow along with you. Discussed with RN. Subjective Allergies: Coded Allergies: No Known Allergies (Unverified , 03/19/20) Subjective afebrile at no leukocytosis off abx discharge planning Objective Vital Signs Last 24 Hour Vital Signs Date Time Temp Pulse Resp B/P (MAP) Pulse Ox O2 Delivery O2 Flow Rate FiO2 03/29/20 12:00 97.7 77 19 118/61 (80) 98 03/29/20 09:00 Room Air 03/29/20 08:00 97.4 73 18 111/53 (72) 98 03/29/20 04:00 97.8 69 20 109/53 (71) 97 03/29/20 00:00 98.0 70 19 121/70 (87) 96 03/28/20 21:00 Room Air 03/28/20 20:00 98.4 70 18 117/69 (85) 97 03/28/20 15:55 97.9 83 18 121/83 (96) 98 Height (Feet): 5 Height (Inches): 6.00 Weight (Pounds): 111 Objective not examined to limit [id number] exposure Laboratory Tests Test 03/29/20 07:50 White Blood Count 5.8 K/UL (4.8-10.8) Red Blood Count 3.94 M/UL (4.70-6.10) L Hemoglobin 11.5 G/DL (14.2-18.0) L Hematocrit 33.0 % (42.0-52.0) L Mean Corpuscular Volume 84 FL (80-99) Mean Corpuscular Hemoglobin 29.1 PG (27.0-31.0) Mean Corpuscular Hemoglobin Concent 34.8 G/DL (32.0-36.0) Red Cell Distribution Width 11.4 % (11.6-14.8) L Platelet Count 270 K/UL (150-450) Mean Platelet Volume 6.2 FL (6.5-10.1) L Neutrophils (%) (Auto) 65.1 % (45.0-75.0) Lymphocytes (%) (Auto) 26.2 % (20.0-45.0) Monocytes (%) (Auto) 4.6 % (1.0-10.0) Eosinophils (%) (Auto) 3.4 % (0.0-3.0) H Basophils (%) (Auto) 0.7 % (0.0-2.0) Sodium Level 145 MMOL/L (136-145) Potassium Level 4.1 MMOL/L (3.5-5.1) Chloride Level 108 MMOL/L (98-107) H Carbon Dioxide Level 30 MMOL/L (21-32) Anion Gap 7 mmol/L (5-15) Blood Urea Nitrogen 8 mg/dL (7-18) Creatinine 0.7 MG/DL (0.55-1.30) Estimat Glomerular Filtration Rate > 60 mL/min (>60) Glucose Level 102 MG/DL (74-106) Calcium Level 8.3 MG/DL (8.5-10.1) L Current Medications Medications (Trade) Dose Ordered Sig/Deric Route PRN Reason Start Time Stop Time Status Last Admin Dose Admin Acetaminophen (Tylenol) 650 mg Q4H PRN ORAL Temp >100.5 03/26/20 07:30 04/19/20 07:29 Benztropine Mesylate (Cogentin) 2 mg BID ORAL 03/27/20 18:00 04/19/20 08:59 03/29/20 09:33 Dextrose (Dextrose 50%) 25 ml Q30M PRN IV Hypoglycemia 03/26/20 07:30 06/18/20 00:59 Dextrose (Dextrose 50%) 50 ml Q30M PRN IV Hypoglycemia 03/26/20 07:30 06/18/20 00:59 Dextrose/Sodium Chloride 1,000 ml @ 75 mls/hr [id number] IV 03/26/20 07:30 04/20/20 12:14 03/28/20 21:44 Diphenhydramine HCl (Benadryl) 50 mg BID ORAL 03/26/20 09:00 04/19/20 17:59 03/29/20 09:33 Docusate Sodium (Colace) 100 mg DAILY ORAL 03/26/20 09:00 04/19/20 08:59 03/29/20 09:33 Gabapentin (Neurontin) 300 mg THREE TIMES A DAY ORAL 03/26/20 09:00 04/19/20 08:59 03/29/20 12:38 Haloperidol (Haldol) 10 mg BID ORAL 03/26/20 18:00 05/04/20 17:59 03/29/20 09:33 Heparin Sodium (Porcine) (Heparin 5000 units/ml) 5,000 units EVERY 8 HOURS SUBQ 03/26/20 14:00 05/04/20 13:59 03/27/20 07:03 Insulin Aspart (NovoLOG) BEFORE MEALS AND HS SUBQ 03/26/20 11:30 06/18/20 06:29 Levothyroxine Sodium (Synthroid) 50 mcg DAILY@0630 ORAL 03/27/20 06:30 04/19/20 06:29 03/27/20 07:03 Metformin HCl (Glucophage) 500 mg BIDBL ORAL 03/26/20 11:30 04/19/20 06:29 03/29/20 12:38 Quetiapine Fumarate (SEROqueL) 200 mg BID ORAL 03/26/20 09:00 05/04/20 17:59 03/29/20 09:33 Quetiapine Fumarate (SEROqueL) 400 mg QHS ORAL 03/26/20 21:00 05/04/20 20:59 03/28/20 20:34 Sennosides (Senokot) 17.2 mg QHS ORAL 03/26/20 21:00 04/21/20 22:59 03/28/20 20:34 Sandra Whitney M.D. March 29, 2020 13:10
[2020-03-29] MEDS ORDERED: NOVOLOG100 UNITS1 (13:31)
--- NOTE | 2020-03-29 13:43 | Diagnostic Imaging Report ---
Indication: Abdominal pain, suspected cirrhosis, suspect hepatosplenomegaly Technique: Very limited ultrasound of the liver and spleen performed to assess for liver surface texture, hepatic size, spleen size. Exam limited due to patient being COVID positive Comparison: none Findings: Normal liver surface. Normal hepatic echogenicity. Normal hepatic and splenic size Impression: Limited exam, for reasons detailed above No surface nodularity or abnormal echotexture to suggest cirrhosis Normal size liver and spleen
--- NOTE | 2020-03-29 13:44 | NUR ---
*-DISCHARGE PLANNED*-* PATIENT HAS BEEN ACCEPTED AND WILL BE TRANSFERRED BACK TO: [facility] P: [phone] FOR NURSE TO NURSE REPORT ROOM# 13.C SKILLED [facility] TRANSPORTATION SET FOR 4PM S/W [id number] [id number] PLACED A CALL TO PATIENTS GUARDIAN, NACHO DILLON, WHO IS IN AGREEMENT WITH DISCHARGE PLAN
--- NOTE | 2020-03-29 13:45 | Progress Note ---
DATE: 03/29/2020 SUBJECTIVE: This is a 74-year-old male patient with acute febrile illness. He has got extreme mood lability, agitation, irritability, and also has been very verbally combative intermittently. He has got mood lability, agitation, irritability. MENTAL STATUS EXAMINATION: This is a 74-year-old male. Appearance is disheveled. Attitude, irritable and agitated. Affect, guarded and restricted. Intellect, poor. Mood, depressed and anxious. Motor activity, psychomotor agitation. Attention span is poor. Orientation x2. Speech is pressured. Thought process, disorganized and illogical. Insight and judgment is poor. DIAGNOSIS: Paranoid schizophrenia with acute exacerbation. PLAN: My plan for this patient is I am going to continue treatment with Seroquel 200 mg twice a day and 400 mg at bedtime. Also I will continue Haldol 10 mg twice a day, Ativan 1 mg every 6 hours p.r.n. anxiety and agitation. A 20 minutes of cognitive behavioral therapy will help him identify his automatic negative thoughts to help him convert his negative thoughts to more positive thoughts to reduce depression, anxiety, and mood lability. Chart reviewed. Discussed with staff. Seen and assessed in his room. Cristina Brandt M.D. DR: DOMINICK JOB#: [id number] CC:
[2020-03-29] MEDS ORDERED: BENADRYL25 M3 PO (14:21)
[2020-03-29] MEDS ORDERED: BENZTROPINE MESY1 MG ORAL (14:23)
[2020-03-29] MEDS ORDERED: HALOPERIDOL1 MG ORAL (14:24)
[2020-03-29] MEDS ORDERED: SEROQUEL300 MG ORAL (14:25)
[2020-03-29] MEDS ORDERED: ACETAMINOPHEN325 M1 ORAL (14:26)
[2020-03-29] MEDS ORDERED: SYNTHROID25 MCG ORAL (14:26)
[2020-03-29] MEDS ORDERED: SENNA8.6 M2 PO (14:27)
[2020-03-29] MEDS: D5NS 1,000 ML IV SCH (15:30)
--- NOTE | 2020-03-29 15:51 | Pulmonology Progress Note ---
Subjective Interval Events: None new Constitutional: Reports: no symptoms HEENT: Repors: no symptoms Respiratory: Reports: no symptoms Cardiovascular: Reports: no symptoms Allergies: Coded Allergies: No Known Allergies (Unverified , 03/19/20) All Systems: reviewed and negative except above Objective Last 24 Hour Vital Signs Date Time Temp Pulse Resp B/P (MAP) Pulse Ox O2 Delivery O2 Flow Rate FiO2 03/29/20 12:00 97.7 77 19 118/61 (80) 98 03/29/20 09:00 Room Air 03/29/20 08:00 97.4 73 18 111/53 (72) 98 03/29/20 04:00 97.8 69 20 109/53 (71) 97 03/29/20 00:00 98.0 70 19 121/70 (87) 96 03/28/20 21:00 Room Air 03/28/20 20:00 98.4 70 18 117/69 (85) 97 03/28/20 15:55 97.9 83 18 121/83 (96) 98 Intake and Output 03/28/20 03/29/20 19:00 07:00 Intake Total 1625 ml 1125 ml Output Total 1400 ml 900 ml Balance 225 ml 225 ml Intake Oral 800 ml 450 ml IV Total 825 ml 675 ml Output Urine Total 1400 ml 900 ml # Voids 4 General Appearance: no acute distress HEENT: normocephalic Respiratory/Chest: chest wall non-tender Cardiovascular: normal peripheral pulses Abdomen: normal bowel sounds Laboratory Tests 03/29/20 07:50: White Blood Count 5.8, Red Blood Count 3.94L, Hemoglobin 11.5L, Hematocrit 33.0L , Mean Corpuscular Volume 84, Mean Corpuscular Hemoglobin 29.1, Mean Corpuscular Hemoglobin Concent 34.8, Red Cell Distribution Width 11.4L, Platelet Count 270, Mean Platelet Volume 6.2L, Neutrophils (%) (Auto) 65.1, Lymphocytes (%) (Auto) 26.2, Monocytes (%) (Auto) 4.6, Eosinophils (%) (Auto) 3.4H, Basophils (%) (Auto) 0.7, Sodium Level 145, Potassium Level 4.1, Chloride Level 108H, Carbon Dioxide Level 30, Anion Gap 7, Blood Urea Nitrogen 8, Creatinine 0.7, Estimat Glomerular Filtration Rate > 60, Glucose Level 102, Calcium Level 8.3L Current Medications Medications (Trade) Dose Ordered Sig/Deric Route PRN Reason Start Time Stop Time Status Last Admin Dose Admin Acetaminophen (Tylenol) 650 mg Q4H PRN ORAL Temp >100.5 03/26/20 07:30 04/19/20 07:29 Benztropine Mesylate (Cogentin) 2 mg BID ORAL 03/27/20 18:00 04/19/20 08:59 03/29/20 09:33 Dextrose (Dextrose 50%) 25 ml Q30M PRN IV Hypoglycemia 03/26/20 07:30 06/18/20 00:59 Dextrose (Dextrose 50%) 50 ml Q30M PRN IV Hypoglycemia 03/26/20 07:30 06/18/20 00:59 Dextrose/Sodium Chloride 1,000 ml @ 75 mls/hr [id number] IV 03/26/20 07:30 04/20/20 12:14 03/28/20 21:44 Diphenhydramine HCl (Benadryl) 50 mg BID ORAL 03/26/20 09:00 04/19/20 17:59 03/29/20 09:33 Docusate Sodium (Colace) 100 mg DAILY ORAL 03/26/20 09:00 04/19/20 08:59 03/29/20 09:33 Gabapentin (Neurontin) 300 mg THREE TIMES A DAY ORAL 03/26/20 09:00 04/19/20 08:59 03/29/20 12:38 Haloperidol (Haldol) 10 mg BID ORAL 03/26/20 18:00 05/04/20 17:59 03/29/20 09:33 Heparin Sodium (Porcine) (Heparin 5000 units/ml) 5,000 units EVERY 8 HOURS SUBQ 03/26/20 14:00 05/04/20 13:59 03/27/20 07:03 Insulin Aspart (NovoLOG) BEFORE MEALS AND HS SUBQ 03/26/20 11:30 06/18/20 06:29 Levothyroxine Sodium (Synthroid) 50 mcg DAILY@0630 ORAL 03/27/20 06:30 04/19/20 06:29 03/27/20 07:03 Metformin HCl (Glucophage) 500 mg BIDBL ORAL 03/26/20 11:30 04/19/20 06:29 03/29/20 12:38 Quetiapine Fumarate (SEROqueL) 200 mg BID ORAL 03/26/20 09:00 05/04/20 17:59 03/29/20 09:33 Quetiapine Fumarate (SEROqueL) 400 mg QHS ORAL 03/26/20 21:00 05/04/20 20:59 03/28/20 20:34 Sennosides (Senokot) 17.2 mg QHS ORAL 03/26/20 21:00 04/21/20 22:59 03/28/20 20:34 Assessment/Plan Assessment/Plan IMPRESSION: 1. Right lung pneumonia. 2. long-term resident. 3. Psych disorder. 4. Hypothyroidism. DISCUSSION: Continue broad-spectrum antibiotics. Continue medications. Continue oxygen and pulmonary hygiene. Currently saturating well on 2L/min O2 alternating with RA Is positive COVID-19. I will follow carefully. Neymar Storm Omar Syed MD March 29, 2020 15:51
[2020-03-29 16:00] VITALS: BP 121/65
--- NOTE | 2020-03-29 16:23 | NUR ---
NURSE NOTES: Patient discharged to [facility]. Report given to Jess RN [employer]. Patient is AxOx1-2 which is his baseline, not in distress, on room air, has been afebrile for more than 72 hours, last temp 97.7F. PIV and ID band removed. Skin is intact. Belongings accounted for. Endorsed to SNF RN that per ID patient must continue Covid droplet/contact isolation precautions at SNF x 4 more days. All discharge instructions and medication list sent with ambulance personnel. Patient left at 1624H via gurney accompanied by ambulance personnel. and DEEPALI Whitaker aware of discharge.
--- NOTE | 2020-03-29 16:53 | NUR ---
P.T Weekly Progress Notes: Pt being seen this past week of skilled P.T. Pt responded well in therapy. Pt has demonstrated significant improvement in functional mobilities. Pt is now currently independently in bed mobility and transfer activities. Pt able to ambulate independently w/o AD needed despite episodes of shuffling gait. Overall fair activity tolerance. Pt has attained his baseline function therefore skilled P.T service is no longer needed at this time. Plan:DC P.T services.
--- NOTE | 2020-03-30 15:20 | Discharge Summary ---
Discharge Summary Discharge Summary _ DATE OF ADMISSION: 03/19/2020 DATE OF DISCHARGE: 03/29/2020 DISCHARGED BY: Dr. Larsen REASON FOR ADMISSION: 74 years old male, resident of custodial facility with past medical history of COPD, diabetes mellitus, schizophrenia, hypothyroidism, seizure disorder, was sent for evaluation due to fever and nonproductive cough. Patient came from the facility with confirmed COVID-19 infection. Patient was febrile with temperature 104.1 . Patient required supplemental oxygen via nasal cannula. Laboratory work-up revealed no leukocytosis stable hemoglobin , hematocrit and lymphopenia. Troponin negative, pro BNP 162. CRP 6.9 , ferritin 484. Chest x-ray demonstrated patchy right lung opacity , suggesting multifocal pneumonia. Urinalysis revealed +1 leukocyte esterase, but no pyuria , +2 protein. In emergency department patient received analgesic, pancultured, started on empiric antibiotic and admitted for further management. Patient was swabbed for COVID-19 as well. CONSULTANTS: supervisor steno pool Dr. Dinh pulmonary Dr. Benítez ID specialist Dr. Whitney management tech/oncologist Dr. Culp psychiatrist Dr. Brandt [facility]SE: Patient admitted to isolation room. Patient started on IV fluids and empiric antibiotics. SARS-CoV-2 by PCR on 03/19 came back detected. Patient remained in isolation. Repeated SARS-CoV-2 by PCR on 03/25 and 03/26 was detected as well. Blood cultures were negative. Patient was follow-up with chest x-ray. CRP initially trended up and then started to trend down, prior to discharge 5.8. Supplemental oxygen provided and titrated to keep pulse oximetry above 92%. Prior to discharge pulse oximetry stable on room air. Pulmonary toilet provided. DVT prophylaxis provided. Patient initially was hypotensive, and according to supervisor steno pool most likely due to COVID-19 pneumonia. Blood pressure stabilized with IV hydration. Blood sugar was managed with metformin and remained stable Seizure precaution maintained. No evidence of seizure activity while in the hospital. Levothyroxine continued. Patient was working with physical therapist. Renal parameters and electrolytes were closely monitored. Potassium was replaced. Patient noted to have pancytopenia. Counts were closely monitored . Hepatitis panel was negative. HIV test was nonreactive. According to management tech , pancytopenia most probably related to COVID-19 infection. Prior to discharge WBC up to 5.8,hemoglobin 11.5, and platelet count 270. Psychiatric medication regimen was optimized as per psychiatrist. Patient clinically stabilized and was ready for transfer back to custodial facility for continuation of care. ID specialist cleared for discharge , continue COVID isolation at the facility. FINAL DIAGNOSES: Confirmed COVID-19 infection Multifocal pneumonia secondary to COVID 19 infection Pancytopenia resolved Hypokalemia COPD Diabetes mellitus Seizure disorder Hypothyroidism Paranoid schizophrenia with acute exacerbation DISCHARGE MEDICATIONS: See Medication Reconciliation list. DISCHARGE INSTRUCTIONS: Patient was discharged to the custodial facility. Follow up with medical doctor at the facility. I have been assigned to dictate discharge summary for this account. I was not involved in the patient's management. Juliana Chavarria NP March 30, 2020 15:20
== END 2020-03-29 16:30 | DRG 177 ==
LOC: EDBD 19:42 → EMR 20:27 → 2E 20:35 → EDBEDREQ 20:48 → 4E 03-26 06:24
DX: U07.1 COVID-19 (principal); J12.89 Other viral pneumonia; D61.818 Other pancytopenia; F20.0 Paranoid schizophrenia; N39.0 Urinary tract infection, site not specified; F33.3 Major depressive disorder, recurrent, severe with psychotic symptoms; J44.9 Chronic obstructive pulmonary disease, unspecified; E11.9 Type 2 diabetes mellitus without complications; F20.9 Schizophrenia, unspecified; E03.9 Hypothyroidism, unspecified; E87.6 Hypokalemia; G40.909 Epilepsy, unspecified, not intractable, without status epilepticus; Z79.84 Long term (current) use of oral hypoglycemic drugs; I95.9 Hypotension, unspecified; E11.42 Type 2 diabetes mellitus with diabetic polyneuropathy
CPT/HCPCS: 36415; 71045; 76705; 80048; 80053; 80202; 81003; 82550; 82553; 82728; 82962; 83605; 83735; 83880; 84100; 84484; 85007; 85025; 85379; 86140; 86703; 86705; 86709; 86803; 87040; 87081; 87340; 87635; 93005; 96361; 96365; 96367; 97803; 99285; J1815; J7030; J8499